=== PATIENT | female | born 1960 | race Caucasian/White ===

== ENCOUNTER 2019-05-29 11:16 | Outpatient (CLI) | payer OTHER, MEDICARE, SELFPAY ==
--- NOTE | ~2019-05-29 | CT_ITS ---
EXAMINATION: CT chest wo con EXAM DATE: 05/29/2019 11:41 INDICATION: Solitary pulmonary nodule. Follow-up. TECHNIQUE: Spiral CT of the chest without contrast. Axial, coronal and sagittal images were reviewe d. Coronal maximum intensity pixel images of chest reviewed. The dose-length product (DLP) for this examination was 86.01 mGy-cm. The exposure was tailored according to patient size (auto mA exposure control), and iterative reconstruction (ASIR) was used as additional dose reduction technique. Juan C rison is made to prior examination from 04/10/2018. FINDINGS: Previously seen 4 mm right middle lobe nodule is stable, a noncalcified granuloma. There i s also small amount of biapical infectious residua. Mild emphysema and hyperinflation. There are no pleural or pericardial effusions. Tracheobronchial tree is patent. There is no mediastinal, hilar or axillary lymphadenopathy. There is no pneumothorax. Heart normal in size. No evidence of co ronary arterial calcification. Upper abdomen is unremarkable. There is mild thoracic spondylosis w ithout osteoblastic or osteolytic lesions identified. IMPRESSION: 1. Post infectious residua. 2. Mild emphysema. Reviewed, dictated and finalized at location A. OLOGY EPILEPSY PHYSICIAN
== END 2019-05-29 11:17 | disposition home or self-care (01) ==
PROVIDERS: PCP Family Medicine; Visit Provider Family Medicine
DX: R91.1 Solitary pulmonary nodule (principal); J43.9 Emphysema, unspecified; R91.8 Other nonspecific abnormal finding of lung field
CPT/HCPCS: 71250

== ENCOUNTER 2019-08-01 07:59 | Outpatient (CLI) | payer OTHER, MEDICARE, SELFPAY ==
--- NOTE | 2019-08-01 14:28 | WPDPFTINT ---
PFT Interpretation PFT Interpretation: DOS: 08/01/2019 REQUESTING: Johnson Nieto PA-C REASON FOR TESTING: shortness of breath, history of tobacco PULMONARY FUNCTION TESTS Results are reproducible. Spirometry: FEV1 is 120%, 3.07 L. FVC 113%. These values are normal. FEV1% is normal. No change with bronchodilator. Lung volumes: TLC 118%, high end of normal. RV 120%, high end of normal. RV/TLC slightly greater than predicted, suggestive of mild air trapping. Arrway resistance mildly elevated 137%. Diffusion: DLCO is 68%, mildly reduced. Flow volume loop: Normal. IMPRESSION: Mild obstructive process inferred by mild air trapping, mild increase in airway resistance and mild decrease in diffusion. Lack of response to bronchodilator should not preclude use if clinically indicated. Sierra Mccurdy MD
== END 2019-08-01 08:00 | disposition home or self-care (01) ==
PROVIDERS: PCP Family Medicine; Visit Provider Physician Assistant
DX: R06.02 Shortness of breath (principal); Z87.891 Personal history of nicotine dependence; P28.89 Other specified respiratory conditions of newborn
CPT/HCPCS: 94060; 94726; 94729

== ENCOUNTER 2019-10-31 14:38 | Outpatient (CLI) | payer OTHER, MEDICARE, SELFPAY ==
--- NOTE | ~2019-10-31 | MM_ITS ---
EXAMINATION: MM screening reed BI w schuyler HISTORY: Screening TECHNIQUE: Craniocaudal and mediolateral oblique 3-D tomosynthesis images were obtained and synthetic 2-D images were generated. CAD analysis was submitted and interpreted. COMPARISON: No prior mammogram is available for comparison at this institution. BREAST PARENCHYMAL COMPOSITION: Comparison to multiple prior studies sequentially, with oldest review ed study dated 02/09/2011. FINDINGS: There is no evidence of suspicious mass, calcification, or architectural distortion to sugg est malignancy in either breast. There has been no suspicious interval change. IMPRESSION: 1. No mammographic evidence of malignancy. 2. Recommend routine screening mammography in one year. BI-RADS Category 1: Negative Reviewed, dictated and finalized at location A.
== END 2019-10-31 14:39 | disposition home or self-care (01) ==
LOC: ANHIMG 14:43
PROVIDERS: PCP Family Medicine; Visit Provider Family Medicine
DX: Z12.31 Encounter for screening mammogram for malignant neoplasm of breast (principal)
CPT/HCPCS: 77063; 77067

== ENCOUNTER 2020-01-08 15:14 | Outpatient (CLI) | payer OTHER, MEDICARE, SELFPAY ==
[2020-01-08 16:15] LABS: Troponin I 0.058 ng/mL (0.000-0.034)
== END 2020-01-08 15:15 | disposition home or self-care (01) ==
PROVIDERS: PCP Family Medicine; Visit Provider Family Medicine
DX: R07.9 Chest pain, unspecified (principal)
CPT/HCPCS: 36415; 84484

== ENCOUNTER 2020-01-08 17:45 | Observation (INO) | payer OTHER, MEDICARE, SELFPAY ==
--- NOTE | ~2020-01-08 | CT_ITS ---
EXAMINATION: CTA chest PE protocol DATE: 01/09/2020 11:31 INDICATION: Chest pain. TECHNIQUE: Computed tomography angiography (CTA) of the chest was performed with 100 mL Omnipaque-350 intravenous contrast timed to evaluate the pulmonary arteries. Coronal maximum intensity projection 3D-reconstructions were created by the technologist. Automated exposure control and iterative reconst ruction technique were employed. The dose-length product was 396.22 mGy-cm. COMPARISON: Chest CT 05/29/2019 FINDINGS: There is mild scarring at the lung apices. There is mild atelectasis bilaterally. Again see n is a 5 mm nodule at minor fissure, likely benign. A calcified right lung nodule is consistent with old granulomatous disease. No pleural effusion. There are nodules in the thyroid measuring up to 6 mm , likely not clinically significant. There are changes of right hemithyroidectomy. The heart size is normal. No pericardial effusion. There is no pulmonary embolus. There is mild thoracic spondylosis. IMPRESSION: 1. No pulmonary embolus. Reviewed, dictated and finalized at location A. IMPRESSION: 1. No pulmonary embolus.
--- NOTE | ~2020-01-08 | NM_ITS ---
EXAMINATION: NM higinio stress w perfusion DATE: 01/10/2020 10:03 INDICATION: Chest pain TECHNIQUE: Rest images were obtained following intravenous administration of 12.5 mCi Tc99m tetrofosm in (Myoview). The patient was infused intravenously with Lexiscan (Regadenoson). Then, 33.5 mCi Tc99m tetrofosmin (Myoview) was administered intravenously, and stress images were obtained. Data was vasile nstructed into short axis and horizontal and vertical long axis SPECT images. Gated SPECT images were also obtained. COMPARISON: None. FINDINGS: Small region of decreased apparent perfusion at the apical inferior segment which appears t o severe on the stress than on the rest images which would favor a traumatic attenuation artifact ove r mild infarct. No other lesions suspicious for infarct and no reversible ischemia. There is normal left ventricular chamber size, wall motion and ejection fraction. Left ventricular ejection fraction measures >70%. IMPRESSION: 1. Small mild perfusion defect at the apical inferior segment greater on the rest than the stress milena ges more likely diaphragmatic attenuation artifact and infarct. Otherwise normal myocardial perfusion at rest and during stress. 2. Left ventricular ejection fraction measuring >70%. Reviewed, dictated and finalized at location B. IMPRESSION: 1. Small mild perfusion defect at the apical inferior segment greater on the re st than the stress images more likely diaphragmatic attenuation artifact and in farct. Otherwise normal myocardial perfusion at rest and during stress. 2. Left ventricular ejection fraction measuring >70%.
[2020-01-08 18:59] LABS: Troponin I 0.056 ng/mL (0.000-0.034)
[2020-01-08 19:03] VITALS: BP 135/78; PULSE 90; RESP 14; TEMP 36.4; O2SAT 99
--- NOTE | 2020-01-08 19:24 | ADMGEN ---
This patient, Mary Weinberg, was admitted to IMU Room 200-01 at 1732. Patient/family oriented to hospital policies and general routines including ID bracelet, bed and alarms, visiting hours, pain management, procedures, bathroom and other care routines, personal items, smoking policy, room service/diet, and visiting hours. Valuables list has been completed. Information on how to activate the Rapid Response Team has been discussed. Patient/Family are encouraged to report perceived risks to care and to ask questions if they do not understand what they are told or what they should do.
[2020-01-08 20:00] VITALS: PULSE 90
--- NOTE | 2020-01-08 20:37 | PM.IMHP ---
H&P: HPI History of Present Illness Date/Time: 01/08/20 20:37 Chief complaint: Chest Pain Narrative: Mary Weinberg is a 59 year old female Who has a history of COPD and anxiety. The patient stated that she had chest pain 2 times a last month. The patient tells me that she walks 3 miles 3 times a week and does not have any chest pain. However today she was ironing her clothes and she had an episode for about a minute where she had some pain under her left breast and went to her midsternal area she said it was sharp and she that she was going to she did not get short of breath and it did not radiate down her left arm or upper neck. But this is the 2nd time in a month at this occurred. She said that she did have some tenderness to the her breast bone when this was occurring. She does not have any tenderness now on the pain is totally gone. She did not take anything to relieve the discomfort. The patient does have a history of acid reflux as well. The patient had an EKG performed and it looks like there is a little bit of elevation in the AVF but it is just in the that [address] they have [address] elevation. Cardiology had been consulted did prior to the patient coming from the office she has a direct admit from Dr. Lu office. The patient no longer has any discomfort. No further testing was performed except for troponin was 0.058 and then 0.056. Date of service is 01/08/2020. Review of Systems Review of Systems: All systems reviewed & are unremarkable except as noted in HPI and below Constitutional: Constitutional: Reports as per HPI and Reports no additional constitutional complaints Eyes: Eyes: Reports as per HPI and Reports no additional eye complaints ENT: Reports system reviewed and no additional complaints, except as documented and Reports Normal hearing present Cardiovascular: Cardiovascular: Reports no additional cardiovascular complaints Respiratory: Respiratory: Reports no additional respiratory complaints and Reports no additional respiratory complaints Gastrointestinal: Gastrointestinal: Reports as per HPI and Reports no additional gastrointestinal complaints Musculoskeletal: Musculoskeletal: Reports no additional musculoskeletal complaints Integumentary/Breasts: Skin/Breast: Reports system reviewed and no additional complaints, except as docu and Reports as per HPI Neurologic: Reports system reviewed and no additional complaints, except as documented, Reports as per HPI and Reports Normal hearing present Psychiatric: Psychiatric: Reports no additional psychiatric complaints and Reports as per HPI Endocrine: Endocrine: Reports no additional endocrine complaints Hematologic/Lymphatic: Hematologic/Lymphatic: Reports no additional hematologic/lymphatic complaints Allergic/Immunologic: Allergic/Immunologic: Reports no additional allergic/immunologic complaints [facility] Past Medical History Medical History (Updated 01/08/20 @ 20:53 by Kenyatta Lemon NP) Anxiety Blepharitis Chronic GERD COPD (chronic obstructive pulmonary disease) Epilepsy Hypothyroidism Osteopenia Postmenopausal HRT (hormone replacement therapy) Pulmonary nodule Surgical History Surgical History (Updated 01/08/20 @ 20:47 by Kenyatta Lemon NP) History of craniotomy L temporal History of elective section times one History of exploratory laparotomy x 4 History of hysterectomy History of partial thyroidectomy Family History Family History (Updated 01/08/20 @ 20:50 by Kenyatta Lemon NP) Father Recurrent strokes Mother Acute eosinophilic leukemia Thyroid disease Anxiety Social History Social History (Updated 01/08/20 @ 20:51 by Kenyatta Lemon NP) Social History: the patient lives at home with her . He is a durable power contract attorney for healthcare. She has 3 children. She has 1 daughter and is at a twin boys. 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 Patient u
--- NOTE | 2020-01-08 20:47 | ECG_ITS ---
SINUS RHYTHM NORMAL ECG Electronically Signed On 01-10-2020 10:55:57 CDT by Michelet CHILDERS
[2020-01-08] MEDS: lamoTRIgine 100 MG TABLET 200 MG PO (22:10)
[2020-01-08 22:11] LABS: Lactic Acid Reflex 1.8 mmol/L (0.7-2.1)
[2020-01-08 22:13] LABS: Anion Gap 7 mmol/L (8-16); Blood Urea Nitrogen 20 mg/dL (7-17); Carbon Dioxide 28 mmol/L (22-30); Chloride 107 mmol/L (98-107); Estimated Glomerular Filt Rate > 60; Glucose 130 mg/dL (65-105); Magnesium 2.4 mg/dL (1.6-2.3); Potassium 3.8 mmol/L (3.4-5.0); Sodium 142 mmol/L (137-145)
[2020-01-08] MEDS: cycloSPORINE 0.4 ML OPHTH SOLUTION 1 DROP EACH EYE (22:13)
[2020-01-08] MEDS: clonazePAM (*CRX) 0.25 MG TABLET PO (22:25)
[2020-01-08 22:33] LABS: Troponin I 0.056 ng/mL (0.000-0.034)
--- NOTE | 2020-01-08 23:25 | PC.NURSE ---
Orders to consult Dr. Mcrae per Kenyatta Lemon NP, orders for chest pain and elevated troponins. has not yet been contacted. Dr. Mcrae is to be contacted in the morning for the consult as requested by DARÍO You.
[2020-01-08 23:37] VITALS: BP 125/70; PULSE 91; RESP 18; TEMP 36.1; O2SAT 96
[2020-01-09] VITALS (13 sets, daily range): BP systolic 118–142; BP diastolic 58–92; PULSE 82–106; RESP 14–20; TEMP 36.3–36.6; O2SAT 97–99
--- NOTE | 2020-01-09 | ECHO_ITS ---
Patient Info Name: Mary Weinberg Age: 59 years : 1960 Gender: Female Ht: 68 in Wt: 197 lbs BSA: 2.09 m2 HR: 81 bpm BP: 142 / 92 mmHg Heart Rhythm: Sinus Rhythm Technical Quality: Good Exam Date: 01/09/2020 7:41 AM Exam Location: [facility] Pulmonary Patient Status: Outpatient Admit Date: 01/08/2020 Staff Ordering Physician: Kenyatta Lemon NP Therapeutic Support Staff: Kenyon Trinidad RDCS, RT Attending Provider: Estephanie Guevara PA-C Referring Physician: Ion CHAVEZ; Exam Type: CA echo doppler color flow Study Info Indications R07.9 - Chest pain, unspecified Complete two-dimensional, color flow and Doppler transthoracic echocardiogram is performed. Strain analysis performed. Summary 1. Complete two-dimensional, color flow and Doppler transthoracic echocardiogram is performed. 2. Global longitudinal strain is Borderline at -17 %. 3. The left ventricular diastolic function is grade I diastolic dysfunction. 4. There is no increased left ventricular wall thickness. 5. Left ventricular chamber dimension is normal. 6. Left ventricular systolic function is normal, estimated at 60-65%. 7. Left atrial chamber dimension is mildly enlarged. 8. There is mild aortic valve sclerosis. 9. There is mild aortic valve stenosis with a peak velocity of 169 cm/s, mean gradient of 6 mmHg, and aortic valve area of 2.1 cm2. 10. There is mild aortic valve regurgitation. 11. There is mild mitral valve regurgitation. 12. There is mild tricuspid valve regurgitation. 13. There is small pericardial effusion. 14. Strain analysis performed. Left Ventricle Left ventricular chamber dimension is normal. Left ventricular systolic function is normal, estimated at 60-65%. There is no increased left ventricular wall thickness. The left ventricular diastolic function is grade I diastolic dysfunction. E/e' 8.8 is abnormal. Global longitudinal strain is Borderline at -17 %. Right Ventricle Right ventricular chamber dimension is normal. Right ventricular systolic function is normal. Left Atria Left atrial chamber dimension is mildly enlarged. Right Atria Right atrial chamber dimension is normal. Atrial Septum Intact interatrial septum visualized by color flow imaging. Aortic Valve The aortic valve is probable trileaflet. There is mild aortic valve sclerosis. There is mild aortic valve stenosis with a peak velocity of 169 cm/s, mean gradient of 6 mmHg, and aortic valve area of 2.1 cm2. There is mild aortic valve regurgitation. Pulmonic Valve The pulmonic valve is normal. There is no pulmonic valve stenosis. There is trace pulmonic regurgitation. Mitral Valve The mitral valve has normal leaflets. There is no mitral valve stenosis. There is mild mitral valve regurgitation. Tricuspid Valve The tricuspid valve leaflets are normal. There is no significant tricuspid valve stenosis. There is mild tricuspid valve regurgitation. Pericardium/Pleural The pericardium appears normal. There is small pericardial effusion. Inferior Vena Cava Normal inferior vena cava with >50% collapse upon inspiration consistent with normal right atrial pressure, 5 mmHg. Aorta The aortic root size at the sinus of Valsalva is normal. Left Ventricular Outflow Tract Name Value Normal L
[2020-01-09 04:57] LABS: Basophils Absolute Auto 0.1 K/mm3 (0.0-0.1); Basophils Percent Auto 0.7 % (0.2-1.2); Eosinophils Absolute Auto 0.2 K/mm3 (0-0.3); Eosinophils Percent Auto 2.6 % (0-4.4); Hematocrit 37.7 % (37.0-47.0); Hemoglobin 12.6 g/dL (12.0-15.0); Immature Granulocyte Absolute 0.03 K/mm3 (0.00-0.031); Immature Granulocyte Percent A 0.4 % (0-0.5); Lymphocytes Absolute Auto 2.24 K/mm3 (0.9-3.2); Lymphocytes Percent Auto 27.4 % (18.3-44.2); Mean Corpuscular HGB Conc 33.4 g/dl (32-36); Mean Corpuscular Volume 92.9 fl (80-100); Mean Platelet Volume 9.8 fl (7.4-10.4); Monocytes Absolute Auto 1.1 K/mm3 (0.1-0.6); Monocytes Percent Auto 13.4 % (2.6-8.5); Neutrophils Absolute Auto 4.6 K/mm3 (1.3-6.7); Neutrophils Percent Auto 55.5 % (45.5-73.1); Platelet Count Result 266 k/mm3 (150-375); Red Blood Count 4.06 M/mm3 (4.2-5.4); Red Cell Distribution Width 12.7 % (11.5-14.5); White Blood Count 8.2 K/mm3 (4.5-10.0)
[2020-01-09 05:15] LABS: Anion Gap 7 mmol/L (8-16); Blood Urea Nitrogen 19 mg/dL (7-17); Carbon Dioxide 27 mmol/L (22-30); Chloride 109 mmol/L (98-107); Estimated Glomerular Filt Rate > 60; Glucose 95 mg/dL (65-105); Magnesium 2.3 mg/dL (1.6-2.3); Sodium 143 mmol/L (137-145)
[2020-01-09 05:22] LABS: Add Urine Microscopic? YES; Amorphous Sediment Urine Few; Appearance Urine Cloudy (Clear); Bilirubin Urine Negative (Negative); Blood Urine Negative (Negative); Color Urine Yellow (Yellow); Glucose Urine UA Negative (Negative); Ketones Urine Negative (Negative); Leukocyte Esterase Ur Negative LEU/UL (Negative); Mucus Urine Rare /lpf; Nitrate Urine Negative (Negative); Protein Urine Negative (Negative); Specific Grav Ur 1.016 (1.001-1.035); Squamous Epithelial Cell Urine Rare /hpf (Few); Urobilinogen Urine Negative mg/dL (<2.0)
[2020-01-09 05:34] LABS: Atypical Lymphocytes Present; Platelet Estimate Adequate (Adequate)
[2020-01-09] MEDS: LEVOTHYROXINE SODIUM 25 MCG TABLET PO (06:13)
[2020-01-09] MEDS: PANTOPRAZOLE 40 MG TABLET PO (09:17)
[2020-01-09] MEDS: lamoTRIgine 100 MG TABLET 200 MG PO ×2 (09:17→20:53)
[2020-01-09] MEDS: cycloSPORINE 0.4 ML OPHTH SOLUTION 1 DROP EACH EYE ×2 (09:17→20:51)
[2020-01-09] MEDS: RALOXIFENE HCL (*CHEMO) 60 MG TABLET PO (09:18)
[2020-01-09] MEDS: MULTIVITAMINS /C LUTEIN (CENTRUM SILVER) TABLET *BKC 1 TAB PO (09:18)
[2020-01-09] MEDS: CHOLECALCIFEROL 1,000 UNITS TABLET 2000 UNITS PO (09:18)
[2020-01-09] MEDS: clonazePAM (*CRX) 0.25 MG TABLET PO ×2 (09:21→21:08)
--- NOTE | 2020-01-09 10:51 | PM.CNCAR ---
Assessment and Plan Assessment and plan (1) Chest pain: Code(s): R07.9 - Chest pain, unspecified Status: Acute Assessment and Plan: this is not related to acute coronary syndrome. Possible pericarditis or even post residual myocarditis from significant infection per patient last year. Will check a CT scan of her chest to rule out for PE albeit not likely . Will Indocin 25 mg p.o. x1 (2) Elevated troponin: Code(s): R77.8 - Other specified abnormalities of plasma proteins Status: Acute Assessment and Plan: check CT chest (3) Pericardial effusion: Code(s): I31.3 - Pericardial effusion (noninflammatory) Status: Acute Assessment and Plan: possibly post infectious versus thyroid disease versus other. Will check a free T4 level. CT chest was ordered. Will check a CRP and ESR. Will need a follow-up echo in office (4) Hypothyroidism: Code(s): E03.9 - Hypothyroidism, unspecified Status: Acute Assessment and Plan: check free T4 level (5) Chronic GERD: Code(s): K21.9 - Gastro-esophageal reflux disease without esophagitis Status: Chronic Assessment and Plan: continue PPI History of Present Illness History of Present Illness Consult date/time: 01/09/20 10:51 Requesting physician: Kenyatta Lemon NP Consult reason: chest pain Reason For Visit: Chest Pain Narrative: date of service 01/09/2020 Reason consultation chest pain, elevated troponin History: Patient is a 59-year-old female who has known known cardiac history. She does have history of COPD and anxiety. She also has hypothyroidism. Patient states that through the years she has had episodes of chest pain. She thinks she has had 3 or 4 episodes over several year time frame of chest pain which is located underneath her left breast. She had an episode about a month ago and then another episode 2 days ago. This episode most recently though was more severe and sharp in nature. It radiated up into her mid chest area. It did not going to her arm back neck or jaw. It was not associated with other symptoms. It was nonexertional. It lasted for about a minute. She bent over and slowly breathe and her symptoms gradually faded away. She has no exertional chest pain. Symptoms were not pleuritic. She denies any syncope, presyncope, paroxysmal nocturnal dyspnea, orthopnea, edema or palpitations. EKG is unremarkable. Troponins were drawn which were minimally elevated but without significant rise or fall. She formally could walk up to 3 miles daily 3 times per week without any problems. She does have occasional shortness of breath which she relates to her underlying COPD. Review of Systems Review of Systems: All systems reviewed & are unremarkable except as noted in HPI and below Constitutional: Constitutional: Denies body ache(s) Eyes: Eyes: Denies blurry vision ENT: Reports Normal hearing present Cardiovascular: Cardiovascular: Reports chest pain Respiratory: Respiratory: Denies cough Gastrointestinal: Gastrointestinal: Denies abdominal pain Genitourinary: Genitourinary: Reports no additional female genitourinary complaints Musculoskeletal: Musculoskeletal: Denies back pain Integumentary/Breasts: Skin/Breast: Denies swelling Neurologic: Reports Normal hearing present Psychiatric: Psychiatric: Reports anxiety Endocrine: Endocrine: Denies fatigue Hematologic/Lymphatic: Hematologic/Lymphatic: Denies easy bleeding Allergic/Immunologic: Allergic/Immunologic: Denies GI upset with certain foods PMFSH Past Medical History Medical History Anxiety Blepharitis Chronic GERD COPD (chronic obstructive pulmonary disease) Epilepsy Hypothyroidism Osteopenia Postmenopausal HRT (hormone replacement therapy) Pulmonary nodule Surgical History Surgical History (Reviewed 01/09/20 @ 10:55 by Terrence Woods
[2020-01-09 10:52] LABS: Cholesterol 245 mg/dL (0-200); HDL Direct 67 mg/dL; Triglycerides 151 mg/dL (<150)
[2020-01-09 11:02] LABS: LDL Cholesterol Direct 123 mg/dL
--- NOTE | 2020-01-09 11:23 | PHAR ---
HOME MED VERIFIED = ANORO ELLIPTA 62.5/25 MCG. NO RX LABEL
[2020-01-09 12:42] LABS: CRP 1.8 mg/dL (<1.0)
[2020-01-09 12:56] LABS: T4 Thyroxine 7.43 ug/dL (5.53-11.0)
[2020-01-09 13:05] LABS: Erythrocyte Sedimentation Rate 16 mm/hr (0-20)
[2020-01-09] MEDS: INDOMETHACIN 25 MG CAPSULE PO (13:06)
--- NOTE | 2020-01-09 15:26 | PM.IMPN ---
Progress Note: A&P Assessment and Plan (1) Elevated troponin: Code(s): R77.8 - Other specified abnormalities of plasma proteins Status: Acute Assessment and Plan: Patient came in with sharp stabbing left-sided chest pain with radiation to her sternal chest which lasted about 1 minutes while she was ironing 1 day prior to arrival. The patient came in with her troponins elevated and then remained flat, 0.058, 0.056, 0.056. Cardiology was consulted for further evaluation this is related to acute coronary syndrome and could be related to pericarditis or myocarditis from a significant infection over the last 1 year. Her echocardiogram showed normal systolic function with EF of 60-65%, grade 1 diastolic dysfunction, and mild pericardial effusion. Due to her pain she would also had a CTA of her chest which showed no PE or cause of chest pain. Patient's cholesterol level showed elevated total cholesterol at 245, slightly elevated triglycerides at 151, LDL was 123 which is normal if she does not have any plaque buildup and HDL is good at 67. Talked with Cardiology who would like for her to have a Lexiscan stress test in the morning and be observed overnight. The patient understands and agrees with the plan all questions answered. (2) Chest pain: Code(s): R07.9 - Chest pain, unspecified Status: Acute Assessment and Plan: Please see above under elevated troponins. (3) COPD (chronic obstructive pulmonary disease): Code(s): J44.9 - Chronic obstructive pulmonary disease, unspecified Status: Acute Assessment and Plan: Continue with her home inhalers. (4) Anxiety: Code(s): F41.9 - Anxiety disorder, unspecified Status: Chronic Assessment and Plan: Continue with her clonazepam. (5) Hypothyroidism: Code(s): E03.9 - Hypothyroidism, unspecified Status: Acute Assessment and Plan: TSH and T4 were both normal. Will continue with her levothyroxine from home. (6) Epilepsy: Code(s): G40.909 - Epilepsy, unspecified, not intractable, without status epilepticus Status: Acute Assessment and Plan: Patient had many seizures in the past and had a craniotomy. Will continue her Lamictal. (7) Pulmonary nodule: Code(s): R91.1 - Solitary pulmonary nodule Status: Acute Assessment and Plan: CT scan of her chest showed 5 mm nodule at minor fissure, likely benign. A calcified right lung nodule is consistent with old granulomatous disease. To be followed by her information security consultant. (8) Thyroid nodule: Code(s): E04.1 - Nontoxic single thyroid nodule Status: Acute Assessment and Plan: CT showed that there are nodules in the thyroid measuring up to 6 mm, likely not clinically significant. There are changes of right hemithyroidectomy. She will need to follow-up with her primary care provider for further evaluation Time Spent With Patient Time with patient: 25 - 35 minutes Subjective Date/time seen: 01/09/20 15:26 Interval history: Date of service 01/09/2020: Patient is feeling better today. She did have 1 episode of chest discomfort around midnight last night which lasted only a few seconds. She does not states this is the same chest pain she had prior to coming in. She denies any shortness of breath, fevers, chills, nausea, vomiting, abdominal pain, diarrhea, leg swelling, calf pain or any other symptoms at this time. Review of Systems Review of Systems: All systems reviewed & are unremarkable except as noted in HPI and below Exam Narrat
[2020-01-10] VITALS (9 sets, daily range): BP systolic 118–123; BP diastolic 69–70; PULSE 76–99; RESP 12–23; TEMP 35.9–36.3; O2SAT 95–98
[2020-01-10 05:18] LABS: Anion Gap 9 mmol/L (8-16); Blood Urea Nitrogen 16 mg/dL (7-17); Calcium 9.3 mg/dL (8.4-10.2); Carbon Dioxide 27 mmol/L (22-30); Chloride 105 mmol/L (98-107); Estimated Glomerular Filt Rate > 60; Glucose 97 mg/dL (65-105); Magnesium 2.1 mg/dL (1.6-2.3); Potassium 4.1 mmol/L (3.4-5.0); Sodium 141 mmol/L (137-145)
[2020-01-10] MEDS: LEVOTHYROXINE SODIUM 25 MCG TABLET PO (06:36)
--- NOTE | 2020-01-10 08:00 | PC.NURSE ---
Pt to xray for Lexiscan
--- NOTE | 2020-01-10 08:30 | EST_ITS ---
Patient Info Name: Mary Weinberg Age: 59 years : 1960 Gender: Female Ht: 67 in Wt: 190 lbs BSA: 2.04 m2 Exam Date: 01/10/2020 8:30 AM Exam Location: [facility] Stress Patient Status: Inpatient Admit Date: 01/08/2020 Staff Ordering Physician: Tucker Araya APRN Attending Provider: TUCKER CHOU Exercise Technologist: Rosa Elena Mcgee RDCS Exam Type: CA stress higinio w NM Study Info Indications R07.9 - Chest pain, unspecified A regadenoson stress test was performed. Summary 1. No abnormal ST-T wave changes with lexiscan. 2. Please correlate with nuclear medicine images, reported separately. Protocol: Lexiscan Stress ECG Details Stage: REST Duration (min): 6 min : 24 sec HR (bpm): 83 SBP (mmHg): 128 DBP (mmHg): 78 Stage: REST Duration (min): 10 min : 13 sec HR (bpm): 89 SBP (mmHg): 128 DBP (mmHg): 78 Stage: STAGE 1 Duration (min): 1 min : 0 sec HR (bpm): 117 SBP (mmHg): 117 DBP (mmHg): 79 Stage: RECOVERY Duration (min): 1 min : 0 sec HR (bpm): 122 SBP (mmHg): 124 DBP (mmHg): 76 Stage: RECOVERY Duration (min): 2 min : 0 sec HR (bpm): 116 SBP (mmHg): 124 DBP (mmHg): 76 Stage: RECOVERY Duration (min): 3 min : 0 sec HR (bpm): 111 SBP (mmHg): 126 DBP (mmHg): 64 Stage: RECOVERY Duration (min): 3 min : 9 sec HR (bpm): 110 SBP (mmHg): 126 DBP (mmHg): 64 Rest HR: 89 bpm Peak HR: 124 bpm Rest Sys BP: 128 mmHg Peak Sys BP: 126 mmHg Max Pred HR: 161 bpm % Max Pred HR: 77 % Target HR: 137 bpm Max RPP: 15,624 bpm*mmHg Target HR Summary: Hemodynamic response to exercise was normal BP Response: Normal blood pressure response Termination Reason: Completed protocol Cardiac Symptoms: None Total Time: 1 min : 0 sec Rest Plasencia BP: 78 mmHg Peak Plasencia BP: 64 mmHg Total Dose: 0.4 mg Resting ECG Normal sinus rhythm - normal ECG. Stress ECG No abnormal ST/T wave changes with exercise. Arrhythmias None. Report Signatures
--- NOTE | 2020-01-10 09:57 | PC.NURSE ---
Pt returned to floor from [facility]
[2020-01-10] MEDS: clonazePAM (*CRX) 0.25 MG TABLET PO (10:00)
[2020-01-10] MEDS: lamoTRIgine 100 MG TABLET 200 MG PO (10:00)
[2020-01-10] MEDS: RALOXIFENE HCL (*CHEMO) 60 MG TABLET PO (10:00)
[2020-01-10] MEDS: cycloSPORINE 0.4 ML OPHTH SOLUTION 1 DROP EACH EYE (10:01)
[2020-01-10] MEDS: MULTIVITAMINS /C LUTEIN (CENTRUM SILVER) TABLET *BKC 1 TAB PO (10:01)
[2020-01-10] MEDS: PANTOPRAZOLE 40 MG TABLET PO (10:01)
[2020-01-10] MEDS: CHOLECALCIFEROL 1,000 UNITS TABLET 2000 UNITS PO (10:01)
--- NOTE | 2020-01-10 10:17 | PM.PNCARD ---
Progress Note: A&P Assessment and Plan (1) Chest pain: Qualifiers: Chest pain type: other chest pain Qualified Code(s): R07.89 - Other chest pain Code(s): R07.9 - Chest pain, unspecified Status: Acute Assessment and Plan: This is not related to acute coronary syndrome. Possible pericarditis or even post residual myocarditis from significant infection per patient last year. CTA was negative for pulmonary embolus. Lexiscan pending (2) Elevated troponin: Code(s): R77.8 - Other specified abnormalities of plasma proteins Status: Acute Assessment and Plan: CT as above. Lexiscan pending (3) Pericardial effusion: Code(s): I31.3 - Pericardial effusion (noninflammatory) Status: Acute Assessment and Plan: Possibly post infectious versus thyroid disease versus other. Free T4 level within normal limits. CT a as above. CRP 1.8. ESR 16 Echocardiogram 01/09/2020:Global longitudinal strain is Borderline at -17 %. The left ventricular diastolic function is grade I diastolic dysfunction. There is no increased left ventricular wall thickness. Left ventricular chamber dimension is normal. Left ventricular systolic function is normal, estimated at 60-65%. Left atrial chamber dimension is mildly enlarged. There is mild aortic valve sclerosis. There is mild aortic valve stenosis with a peak velocity of 169 cm/s, mean gradient of 6 mmHg, and aortic valve area of 2.1 cm2. There is mild aortic valve regurgitation. There is mild mitral valve regurgitation. There is mild tricuspid valve regurgitation. There is small pericardial effusion. Strain analysis performed . (4) Hypothyroidism: Code(s): E03.9 - Hypothyroidism, unspecified Status: Acute Assessment and Plan: T4 level within normal limits (5) Chronic GERD: Code(s): K21.9 - Gastro-esophageal reflux disease without esophagitis Status: Chronic Assessment and Plan: continue PPI Additional Plan Further recommendations pending the outcome of the Lexiscan. Plan discussed with Dr. Mon 0945 01/10/2020 Subjective Date/time seen: 01/10/20 08:47 Seen in stress lab. Review of Systems Review of Systems: All systems reviewed & are unremarkable except as noted in HPI and below Constitutional: Constitutional: Denies body ache(s) and Denies fatigue Eyes: Eyes: Denies blurry vision ENT: Reports Normal hearing present Cardiovascular: Cardiovascular: Reports chest pain Respiratory: Respiratory: Denies cough Gastrointestinal: Gastrointestinal: Denies abdominal pain Genitourinary: Genitourinary: Reports no additional female genitourinary complaints Musculoskeletal: Musculoskeletal: Denies back pain Integumentary/Breasts: Skin/Breast: Denies swelling Neurologic: Reports Normal hearing present Psychiatric: Psychiatric: Reports anxiety Endocrine: Endocrine: Denies fatigue Hematologic/Lymphatic: Hematologic/Lymphatic: Denies easy bleeding Allergic/Immunologic: Allergic/Immunologic: Denies GI upset with certain foods Exam Narrative: Exam Narrative: Seen in stress lab. Laying comfortably on stretcher Const: General: cooperative Orientation/consciousness: patient oriented x3 Limitations: no limitations HENMT: Head: normal to inspection General nose exam: Normal nares present Mouth: Yes moist mucous membranes Eyes: Sclera: sclerae normal Neck: Neck: supple and No JVD Chest: Chest palpation & inspection: normal inspection of the chest Resp: Effort & Inspection: normal respiratory effort and able to speak in complete sentences Auscultation: clear to auscultation bilaterally Cardio: Jugular venous distension: no JVD Rhythm: regular rhythm Heart sounds: S1 normal heart sound present and S2 normal heart sound present
--- NOTE | 2020-01-10 13:11 | PM.DS ---
DS: Admitting Diagnosis Admitting Diagnosis Admitting Diagnosis: Chest Pain DS: Discharge Diagnosis Discharge Diagnosis (1) Elevated troponin: Code(s): R77.8 - Other specified abnormalities of plasma proteins Status: Acute Assessment and Plan: Patient came in with sharp stabbing left-sided chest pain with radiation to her sternal chest which lasted about 1 minutes while she was ironing 1 day prior to arrival. The patient came in with her troponins elevated and then remained flat, 0.058, 0.056, 0.056. Cardiology was consulted for further evaluation this is related to acute coronary syndrome and could be related to pericarditis or myocarditis from a significant infection over the last 1 year. Her echocardiogram showed normal systolic function with EF of 60-65%, grade 1 diastolic dysfunction, and mild pericardial effusion. Due to her pain she would also had a CTA of her chest which showed no PE or cause of chest pain. Patient's cholesterol level showed elevated total cholesterol at 245, slightly elevated triglycerides at 151, LDL was 123 which is normal if she does not have any plaque buildup and HDL is good at 67. She had a Lexiscan stress test showed Small mild perfusion defect at the apical inferior segment greater on the rest than the stress images more likely diaphragmatic attenuation artifact and infarct. Otherwise normal myocardial perfusion at rest and during stress. Left ventricular ejection fraction measuring >70%. Cardiology feels comfortable with discharge at this time. They will treat her for Pericardial inflammation with Ibuprofen taper. She does not need further cardiology follow up and can Follow up with Dr. Ibanez within 1 week for further evaluation. The patient understands and agrees with the plan all questions answered. (2) Pericardial effusion: Code(s): I31.3 - Pericardial effusion (noninflammatory) Status: Acute Assessment and Plan: Possibly post infectious vs thyroid disease. Has normal TSH and T4. CRP slightly elevated with a normal ESR. Cardiology feels comfortable at this time with discharge and follow up with PCP. (3) Chest pain: Qualifiers: Chest pain type: other chest pain Qualified Code(s): R07.89 - Other chest pain Code(s): R07.9 - Chest pain, unspecified Status: Acute Assessment and Plan: Please see above under elevated troponins. (4) COPD (chronic obstructive pulmonary disease): Code(s): J44.9 - Chronic obstructive pulmonary disease, unspecified Status: Acute Assessment and Plan: Continue with her home inhalers. (5) Anxiety: Code(s): F41.9 - Anxiety disorder, unspecified Status: Chronic Assessment and Plan: Continue with her clonazepam. (6) Hypothyroidism: Code(s): E03.9 - Hypothyroidism, unspecified Status: Acute Assessment and Plan: TSH and T4 were both normal. Will continue with her levothyroxine from home. (7) Epilepsy: Code(s): G40.909 - Epilepsy, unspecified, not intractable, without status epilepticus Status: Acute Assessment and Plan: Patient had many seizures in the past and had a craniotomy. Will continue her Lamictal. (8) Pulmonary nodule: Code(s): R91.1 - Solitary pulmonary nodule Status: Acute Assessment and Plan: CT scan of her chest showed 5 mm nodule at minor fissure, likely benign. A calcified right lung nodule is consistent with old granulomatous disease. To be followed by her hotel yardperson. (9) Thyroid nodule: Code(
== END 2020-01-10 14:17 | disposition home or self-care (01) ==
PROVIDERS: Internal Medicine Cardiovascular Disease; Nurse Practitioner; Physician Assistant; Admitting Provider Family Medicine; PCP Family Medicine; Visit Provider Internal Medicine
DX: R77.8 Other specified abnormalities of plasma proteins (principal); I31.3 Pericardial effusion (noninflammatory); R07.89 Other chest pain; E04.1 Nontoxic single thyroid nodule; E03.9 Hypothyroidism, unspecified; F41.8 Other specified anxiety disorders; G40.909 Epilepsy, unspecified, not intractable, without status epilepticus; J44.9 Chronic obstructive pulmonary disease, unspecified; K21.9 Gastro-esophageal reflux disease without esophagitis; R91.1 Solitary pulmonary nodule; Z87.891 Personal history of nicotine dependence
CPT/HCPCS: 36415; 71275; 78452; 80048; 80061; 81001; 83605; 83735; 84436; 84443; 84484; 85025; 85652; 86140; 93005; 93017; 93306; 94640; A9270; A9502; G0378; G0379; J2785; Q9967

== ENCOUNTER 2020-10-13 14:09 | Emergency (ER) | payer OTHER, MEDICARE, SELFPAY ==
--- NOTE | 2020-10-13 14:20 | ED.EAR ---
HPI - Ear Problem General Chief complaint: Ear Stated complaint: ear pain Time Seen by Provider: 10/13/20 14:21 Source: patient and RN notes reviewed Mode of arrival: ambulatory Limitations: no limitations History of Present Illness HPI Narrative: 60-year-old female presents concern for right ear pain. Reports pain started last night after she shot water in her ear with a shower wand. She reports small amount of watery drainage this morning. She denies rhinorrhea, nasal congestion, sore throat. Reports slight decreased hearing. MD Complaint: ear pain Related Data Home Medications Medication Instructions Recorded Confirmed cholecalciferol (vitamin D3) 50 2,000 unit PO DAILY 05/04/19 05/26/20 mcg (2,000 unit) capsule clonazepam 0.5 mg tablet 0.25 mg PO BID tablet 05/04/19 05/26/20 lamotrigine 100 mg tablet 200 mg PO BID tablet 05/04/19 05/26/20 levothyroxine 25 mcg tablet 25 mcg PO DAILY 05/04/19 05/26/20 ibbjqiaa-pey-pkyhy acid 0.4 1 tablet PO DAILY 05/04/19 05/26/20 mg-lycopene 300 mcg-lutein 250 mcg tablet raloxifene 60 mg tablet 60 mg PO DAILY 05/04/19 05/26/20 zaleplon 10 mg capsule 10 mg PO .QHS PRN cap 05/04/19 05/26/20 lansoprazole 15 mg capsule,delayed 15 mg PO DAILY 01/08/20 05/26/20 release trazodone 50 mg tablet 50 mg PO QHS PRN 05/26/20 05/26/20 Allergies Allergy/AdvReac Type Severity Reaction Status Date / Time No Known Allergies Allergy Verified 05/26/20 16:23 Review of Systems Review of Systems: Narrative: CONSTITUTIONAL: Denies malaise, chills, sweats, or fever. EYES: Denies visual changes, redness, or discharge. ENT: Denies rhinorrhea, congestion, sinus pain, and sore throat. Reports right ear pain CARDIOVASCULAR: Denies chest pain, palpitations, or edema. RESPIRATORY: Denies cough or dyspnea. GASTROINTESTINAL: Denies abdominal pain, nausea, vomiting, diarrhea SKIN: Denies rash or itching. MUSCULOSKELETAL: Denies myalgia. NEUROLOGIC: Denies headache. All systems reviewed & are unremarkable except as noted in HPI and below PMFSH Past Medical History Medical History Anxiety Blepharitis Chronic GERD COPD (chronic obstructive pulmonary disease) Epilepsy Hypothyroidism Osteopenia Postmenopausal HRT (hormone replacement therapy) Pulmonary nodule Surgical History Surgical History History of craniotomy L temporal History of elective section times one History of exploratory laparotomy x 4 History of hysterectomy History of partial thyroidectomy Family History Family History Father Recurrent strokes Mother Acute eosinophilic leukemia Thyroid disease Anxiety Social History Social History Social History: the patient lives at home with her . He is a durable power tube sizer operator for healthcare. She has 3 children. She has 1 daughter and is at a twin boys. 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 Patient used to smoke she quit smoking about 15 years ago. She smoked for 27 years. She is not use any marijuana or illicit drugs no alcohol. She desires to be a full code. Smoking packs per day: 1 Smoking cigarettes per day: 20.0 Years smoked: 15 Smoking pack-years: 15.00 Smoking status: Former smoker Tobacco type: cigarettes Second hand tobacco smoke exposure: No Smoking end date: 03/28/05 Alcohol intake: never Alcohol use details: occasionally Substance use: never Substance use type: does not use Gender identity (if verbalized by the patient): Female Spiritual care concerns: No Comments At time of signature, agree with nursing past medical, surgical, social and family history. There is no relevant family history pertinent to the presenting complaint Exam Narrative: Exam Narrativ
[2020-10-13 14:24] VITALS: PULSE 90; RESP 16; TEMP 36.4; O2SAT 97
[2020-10-13 14:27] VITALS: BP 135/71
== END 2020-10-13 14:33 | disposition home or self-care (01) ==
PROVIDERS: Emergency Provider Nurse Practitioner; PCP Family Medicine
DX: H60.331 Swimmer's ear, right ear (principal); Z87.891 Personal history of nicotine dependence; F41.9 Anxiety disorder, unspecified; K21.9 Gastro-esophageal reflux disease without esophagitis; J44.9 Chronic obstructive pulmonary disease, unspecified; G40.909 Epilepsy, unspecified, not intractable, without status epilepticus; E03.9 Hypothyroidism, unspecified; M81.0 Age-related osteoporosis without current pathological fracture
CPT/HCPCS: 99213; G0463

== ENCOUNTER 2020-11-20 16:42 | Outpatient (CLI) | payer OTHER, MEDICARE, SELFPAY ==
--- NOTE | ~2020-11-20 | MM_ITS ---
EXAMINATION: MM screening [facility] BI w schuyler HISTORY: Screening mammogram TECHNIQUE: Craniocaudal and mediolateral oblique 3-D tomosynthesis images were obtained and synthetic 2-D images were generated. CAD analysis was submitted and interpreted. COMPARISON: 10/31/2019, 10/19/2018, 09/15/2017 BREAST PARENCHYMAL COMPOSITION: There are scattered areas of fibroglandular density. FINDINGS: There is no evidence of suspicious mass, calcification, or architectural distortion to sugg est malignancy in either breast. There has been no suspicious interval change. IMPRESSION: 1. No mammographic evidence of malignancy. 2. Recommend routine screening mammography in one year. BI-RADS Category 1: Negative Reviewed, dictated and finalized at location A.
== END 2020-11-20 16:43 | disposition home or self-care (01) ==
LOC: ANHIMG 16:46
PROVIDERS: PCP Family Medicine; Visit Provider Family Medicine
DX: Z12.31 Encounter for screening mammogram for malignant neoplasm of breast (principal)
CPT/HCPCS: 77063; 77067

== ENCOUNTER 2020-12-13 11:49 | Emergency (ER) | payer OTHER, MEDICARE, SELFPAY ==
--- NOTE | 2020-12-13 11:55 | ED.EAR ---
HPI - Ear Problem General Chief complaint: Ear Stated complaint: discharge from ear Time Seen by Provider: 12/13/20 11:55 Source: patient and RN notes reviewed History of Present Illness HPI Narrative: Patient is a 60-year-old female who presents the urgent care with complaints of drainage to the left ear. Patient states that happened back in September and she was placed on ofloxacin drops. Patient states she has used the drops twice in the last 24 hours. States that she started having some issues with wax buildup approximately 1 week ago which has not resolved. Patient states she is used peroxide and water in the ear. Currently denies of any fevers, nausea, vomiting, upper respiratory issues. No other acute complaints. No acute distress noted. Patient aware of the plan of care. Some parts of this dictation were generated by voice recognition software and may contain typographical and/or grammatical inaccuracies. Related Data Home Medications Medication Instructions Recorded Confirmed cholecalciferol (vitamin D3) 50 2,000 unit PO DAILY 05/04/19 12/13/20 mcg (2,000 unit) capsule clonazepam 0.5 mg tablet 0.25 mg PO BID tablet 05/04/19 12/13/20 lamotrigine 100 mg tablet 200 mg PO BID tablet 05/04/19 12/13/20 levothyroxine 25 mcg tablet 25 mcg PO DAILY 05/04/19 12/13/20 ucwpwmnl-tvd-sohth acid 0.4 1 tablet PO DAILY 05/04/19 12/13/20 mg-lycopene 300 mcg-lutein 250 mcg tablet raloxifene 60 mg tablet 60 mg PO DAILY 05/04/19 12/13/20 zaleplon 10 mg capsule 10 mg PO .QHS PRN cap 05/04/19 12/13/20 lansoprazole 15 mg capsule,delayed 15 mg PO DAILY 01/08/20 05/26/20 release trazodone 50 mg tablet 50 mg PO QHS PRN 05/26/20 05/26/20 Allergies Allergy/AdvReac Type Severity Reaction Status Date / Time No Known Allergies Allergy Verified 05/26/20 16:23 Review of Systems Review of Systems: CONSTITUTIONAL: Denies fever, chills, or sweats. EYES: Denies visual changes, redness, or discharge. ENT: Denies rhinorrhea, congestion, sore throat. Reports of left otalgia with drainage CARDIOVASCULAR: Denies chest pain, palpitations, or edema. RESPIRATORY: Denies cough or dyspnea. GASTROINTESTINAL: Denies abdominal pain, nausea, vomiting, or diarrhea. GENITOURINARY: Denies dysuria or hematuria. SKIN: Denies rash or itching. MUSCULOSKELETAL: Denies back pain, joint pain, or myalgia. NEUROLOGIC: Denies headache, numbness, or weakness. All other systems reviewed are negative, except as documented in HPI. [facility] Past Medical History Medical History Anxiety Blepharitis Chronic GERD COPD (chronic obstructive pulmonary disease) Epilepsy Hypothyroidism Osteopenia Postmenopausal HRT (hormone replacement therapy) Pulmonary nodule Surgical History Surgical History History of craniotomy L temporal History of elective section times one History of exploratory laparotomy x 4 History of hysterectomy History of partial thyroidectomy Family History Family History Father Recurrent strokes Mother Acute eosinophilic leukemia Thyroid disease Anxiety Social History Social History Social History: the patient lives at home with her . He is a durable power admitted attorneys for healthcare. She has 3 children. She has 1 daughter and is at a twin boys. 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 Patient used to smoke she quit smoking about 15 years ago. She smoked for 27 years. She is not use any marijuana or illicit drugs no alcohol. She desires to be a full code. Smoking packs per day: 1 Smoking cigarettes per day: 20.0 Years smoked: 15 Smoking pack-years: 15.00 Smoking status: Former smoker Tobacco type: cigarettes Second hand tobacco smoke exposure: No Smoking end d
[2020-12-13 12:03] VITALS: BP 128/87; PULSE 100; RESP 16; TEMP 36.6; O2SAT 98
== END 2020-12-13 12:26 | disposition home or self-care (01) ==
PROVIDERS: Emergency Provider Nurse Practitioner Family; PCP Family Medicine
DX: H60.92 Unspecified otitis externa, left ear (principal); J44.9 Chronic obstructive pulmonary disease, unspecified; F41.9 Anxiety disorder, unspecified; E03.9 Hypothyroidism, unspecified; Z87.891 Personal history of nicotine dependence
CPT/HCPCS: 99213; G0463

== ENCOUNTER → 2021-03-24 02:42 | Outpatient (CLI) | payer OTHER, MEDICARE, SELFPAY ==
[2021-03-24 18:04] LABS: Influenza Control Positive
[2021-03-25 03:59] LABS: SARS-CoV-2 RNA PCR Negative
== END ==
PROVIDERS: Nurse Practitioner Family; PCP Family Medicine; Visit Provider Physician Assistant
DX: R05.9 Cough, unspecified (principal); R68.83 Chills (without fever); Z20.822 Contact with and (suspected) exposure to COVID-19
CPT/HCPCS: 87804; C9803; U0003; U0005

== ENCOUNTER 2021-03-25 10:58 | Outpatient (CLI) | payer OTHER, MEDICARE, SELFPAY ==
--- NOTE | ~2021-03-25 | XR_ITS ---
EXAMINATION: XR chest 2V DATE: 03/25/2021 11:14 INDICATION: Cough and shortness of breath. TECHNIQUE: Frontal and lateral views of the chest were obtained. COMPARISON: Chest 2 views 09/02/2017, chest CT 01/09/2020 FINDINGS: There is mild scarring at the lung apices. No pleural effusion or pneumothorax. The heart s ize is normal. IMPRESSION: 1. Mild scarring at the lung apices. Reviewed, dictated and finalized at location A. RTISING STRATEGIST
== END 2021-03-25 10:59 | disposition home or self-care (01) ==
LOC: ANHIMG 11:06
PROVIDERS: PCP Family Medicine; Visit Provider Physician Assistant
DX: R05.9 Cough, unspecified (principal); R06.02 Shortness of breath; R91.8 Other nonspecific abnormal finding of lung field
CPT/HCPCS: 71046

== ENCOUNTER 2021-04-04 12:33 | Emergency (ER) | payer OTHER, MEDICARE, SELFPAY ==
--- NOTE | ~2021-04-04 | XR_ITS ---
EXAMINATION: XR lumbar spine 2-3V DATE: 04/04/2021 15:57 INDICATION: Low back pain TECHNIQUE: Anteroposterior and lateral views of the lumbar spine, and cone-down lateral view of the l umbosacral junction were obtained. COMPARISON: None. FINDINGS: There are at least 15 degrees of thoracolumbar levoscoliosis. No fracture is identified. Foster ne alignment is normal. The vertebral body heights are maintained. There is mild loss of intervertebr al disc space height throughout the lumbar spine. IMPRESSION: 1. Mild lumbar spondylosis without acute findings. Reviewed, dictated and finalized at location F. RDS MANAGEMENT COORDINATOR
--- NOTE | ~2021-04-04 | XR_ITS ---
EXAMINATION: XR hip RT 2V w AP pelvis INDICATION: Right hip pain TECHNIQUE: AP view of the pelvis and two views of the right hip are obtained. COMPARISON: None available FINDINGS: Bone alignment is normal. There is no fracture. Phleboliths are noted in the pelvis. IMPRESSION: 1. No acute osseous abnormality. Reviewed, dictated and finalized at location F. W HAT MACHINE OPERATOR
--- NOTE | ~2021-04-04 | XR_ITS ---
EXAMINATION: XR ankle RT min 3V INDICATION: Right ankle pain and swelling TECHNIQUE: Four views of the right ankle are obtained. COMPARISON: None available FINDINGS: There is no fracture, dislocation, or subluxation. The bones, soft tissues, and joint space s are normal. IMPRESSION: 1. No acute osseous abnormality. Reviewed, dictated and finalized at location F. [facility]
[2021-04-04 13:34] VITALS: BP 136/102; PULSE 89; RESP 16; TEMP 36.8; O2SAT 99
--- NOTE | 2021-04-04 15:46 | ED.LOWEXIN ---
HPI - Extremity Injury (Lower) General Chief Complaint: Extremity Injury, Lower Stated Complaint: fall, right ankle/foot pain Time Seen by Provider: 04/04/21 15:17 Source: patient Mode of arrival: ambulatory Limitations: no limitations History of Present Illness HPI Narrative: Patient is a 61-year-old female complaining of right ankle, right hip and right lower back pain, 8 out of 10, dull, aching, worse with palpation and movement, started prior to arrival after she fell on an icy pavement. Patient states that she was able to get up and ambulate after the fall. Denies any loss of consciousness. Patient denies any head, neck, chest, abdomen or any other extremity pain/injury. Related Data Home Medications Medication Instructions Recorded Confirmed cholecalciferol (vitamin D3) 50 2,000 unit PO DAILY 05/04/19 03/25/21 mcg (2,000 unit) capsule lamotrigine 100 mg tablet 200 mg PO BID tablet 05/04/19 03/25/21 levothyroxine 25 mcg tablet 25 mcg PO DAILY 05/04/19 03/25/21 ywtatwpa-kwi-knafz acid 0.4 1 tablet PO DAILY 05/04/19 03/25/21 mg-lycopene 300 mcg-lutein 250 mcg tablet raloxifene 60 mg tablet 60 mg PO DAILY 05/04/19 03/25/21 zaleplon 10 mg capsule 10 mg PO .QHS PRN cap 05/04/19 03/25/21 trazodone 50 mg tablet 50 mg PO QHS PRN 05/26/20 03/25/21 Allergies Allergy/AdvReac Type Severity Reaction Status Date / Time No Known Allergies Allergy Verified 04/04/21 15:09 Review of Systems Review of Systems: All systems reviewed & are unremarkable except as noted in HPI and below Constitutional: Constitutional: Denies body ache(s), Denies chills, Denies excessive sweating, Denies fatigue, Denies fever(s), Denies headache(s), Denies lethargy, Denies malaise, Denies weakness and Denies weight loss Eyes: Eyes: Denies blurry vision, Denies change in vision and Denies loss of vision ENT: Denies dizziness, Denies ear discharge, Denies headache(s), Denies lip swelling, Denies epistaxis, Denies nasal congestion, Denies neck pain, Denies throat swelling and Denies tongue swelling Cardiovascular: Cardiovascular: Denies chest pain, Denies chest pain at rest, Denies chest pain with activity, Denies diaphoresis, Denies rapid heart rate, Denies edema, Denies irregular heart rhythm, Denies lightheadedness, Denies palpitations, Denies dyspnea and Denies dyspnea on exertion Respiratory: Respiratory: Denies chest congestion, Denies cough, Denies hemoptysis, Denies dyspnea and Denies dyspnea on exertion Gastrointestinal: Gastrointestinal: Denies abdominal pain, Denies melena, Denies hematochezia, Denies diarrhea, Denies nausea, Denies vomiting and Denies hematemesis Musculoskeletal: Musculoskeletal: Denies deformity, Denies joint swelling, Denies neck pain and Denies numbness Neurologic: Denies Abnormal speech present, Denies abnormal gait, Denies confusion, Denies dizziness, Denies headache(s), Denies focal weakness, Denies loss of vision, Denies numbness, Denies Other visual disturbances, Denies Sensory deficit (Neuro) and Denies weakness Psychiatric: Psychiatric: Denies confusion, Denies depression, Denies auditory hallucinations, Denies homicidal ideation and Denies suicidal ideation Endocrine: Endocrine: Denies cold intolerance, Denies excessive sweating, Denies fatigue, Denies heat intolerance and Denies palpitations Hematologic/Lymphatic: Hematologic/Lymphatic: Denies easy bleeding and Denies easy bruising Allergic/Immunologic: Allergic/Immunologic: Denies lip swelling, Denies throat swelling and Denies tongue swelling PMFSH Past Medical History Medical History Anxiety Blepharitis Chronic GERD COPD (chronic obstructive pulmonary disease) Epilepsy Hypothyroidism Osteopenia Postmenopausal HRT (hormone replacement therapy) Pulmonary nodule Surgical History Surgical History History of craniotomy L temporal History of e
[2021-04-04] MEDS: HYDROcodone/acetaminophen (*CRX) 5-325 MG TABLET 1 TAB PO (16:13)
[2021-04-04] MEDS: KETOROLAC 30 MG/ML VIAL (*BKC) IM (16:13)
== END 2021-04-04 17:57 | disposition home or self-care (01) ==
PROVIDERS: Emergency Provider Emergency Medicine; PCP Family Medicine
DX: S93.401A Sprain of unspecified ligament of right ankle, initial encounter (principal); S70.01XA Contusion of right hip, initial encounter; S39.012A Strain of muscle, fascia and tendon of lower back, initial encounter; W00.0XXA Fall on same level due to ice and snow, initial encounter
CPT/HCPCS: 72100; 73502; 73610; 96372; 99284; A9270; J1885

== ENCOUNTER 2021-09-28 17:22 | Emergency (ER) | payer OTHER, MEDICARE, SELFPAY ==
--- NOTE | ~2021-09-28 | CT_ITS ---
EXAMINATION: CT soft tissue neck w con DATE: 09/28/2021 19:11 INDICATION: Facial swelling, rule out abscess, right upper tooth pain. TECHNIQUE: Computed tomography (CT) of the neck was performed with 75 mL Omnipaque-300 intravenous co ntrast. Automated exposure control and iterative reconstruction technique were employed. The dose-taj gth product was 512.87 mGy-cm. COMPARISON: None FINDINGS: Periapical lucency involving the roots of an upper right maxillary molar. Considerable artifact from dental hardware limits evaluation of the surrounding soft tissues. Right cheek/face swelling. The thy roid gland is unremarkable. The submandibular and parotid glands are symmetric. There is no cervi jessica lymphadenopathy. There are no masses identified. Thoracic aortic ectasia and arch calcificati on. The airway is unremarkable. Parapharyngeal and pre-glottic fat planes are preserved. Severe stenosis at the right carotid bifurcation, otherwise the carotid and vertebral arteries are patent. The orbits are unremarkable. Right maxillary mucosal thickening and retention cyst/polyp. Visualiz ed lung parenchyma is clear. There is cervical spondylosis. IMPRESSION: 1. Right maxillary molar periodontal disease. 2. Right cheek/face swelling/cellulitis. 3. An odontogenic abscess cannot be excluded due to metal artifact from dental hardware. 4. Severe right carotid bifurcation stenosis, recommend timely outpatient carotid ultrasound for furt her evaluation. Reviewed, dictated and finalized at location K. IMPRESSION: 1. Right maxillary molar periodontal disease. 2. Right cheek/face swelling/cellulitis. 3. An odontogenic abscess cannot be excluded due to metal artifact from dental hardware. 4. Severe right carotid bifurcation stenosis, recommend timely outpatient carot id ultrasound for further evaluation.
--- NOTE | ~2021-09-28 | CT_ITS ---
EXAMINATION: CT brain wo con DATE: 09/28/2021 19:08 INDICATION: headache htn . TECHNIQUE: Computed tomography (CT) of the head was performed without intravenous contrast. The mA wa s adjusted according to patient size. Iterative reconstruction technique was employed. The dose-lengt h product was 605.33 mGy-cm. COMPARISON: None FINDINGS: No acute intracranial hemorrhage or extra-axial fluid collection. No hydrocephalus, mass, or herniation. No acute ischemic infarct. Unremarkable dural venous sinus attenuation. No acute osseous abnormality. Right maxillary mucosal thickening and retention cyst/polyp, otherwise the aerated spaces are clear. Old left craniotomy. Left medial temporal encephalomalacia. Atherosclerotic intracranial calcificatio n. Mild atrophy and chronic white matter change. IMPRESSION: No acute intracranial process. Reviewed, dictated and finalized at location K.
[2021-09-28 17:35] VITALS: BP 133/101; PULSE 105; RESP 18; TEMP 36.6; O2SAT 100
--- NOTE | 2021-09-28 17:52 | ED.GENADULT ---
HPI - General Adult General Chief complaint: Dental/Oral <Elis Hurt MD - Last Filed: 09/28/21 18:01> Stated complaint: toothache <Elis Hurt MD - Last Filed: 09/28/21 18:01> Time Seen by Provider: 09/28/21 17:33 <Elis Hurt MD - Last Filed: 09/28/21 18:01> History of Present Illness HPI narrative: pt here with since Tuesday right dental upper molar pain so called her dentist office and oncall called in amoxicillin and taking but then more pain going to right ear and feeling dizzy with mild meza but says not spinning just lt headed no other loc/trauma/neuro changes/no f/uri/cp/sob/neck or back pain/throat issues and no n/v/d but right cheek swelling more so called dentist again told to come in and no pain meds tried <lEis Hurt MD - Last Filed: 09/28/21 18:01> Related Data Home medications: Home Medications Medication Instructions Recorded Confirmed cholecalciferol (vitamin D3) 50 2,000 unit PO DAILY 05/04/19 06/04/21 mcg (2,000 unit) capsule lamotrigine 100 mg tablet 200 mg PO BID 05/04/19 06/04/21 levothyroxine 25 mcg tablet 25 mcg PO DAILY 05/04/19 06/04/21 ffvavyga-igp-garzm acid 0.4 1 tablet PO DAILY 05/04/19 06/04/21 mg-lycopene 300 mcg-lutein 250 mcg tablet (Centrum Silver) raloxifene 60 mg tablet 60 mg PO DAILY 05/04/19 06/04/21 <Elis Hurt MD - Last Filed: 09/28/21 18:01> Allergies/adverse reactions: Allergies Allergy/AdvReac Type Severity Reaction Status Date / Time No Known Allergies Allergy Verified 09/28/21 17:38 <Elis Hurt MD - Last Filed: 09/28/21 18:01> Review of Systems Constitutional: Comments: CONSTITUTIONAL: Denies fever, chills, or sweats. EYES: Denies visual changes, redness, or discharge. ENT: Denies rhinorrhea, congestion, sore throat, has otalgia r only and right upper molar pain now right cheek red and swollen. CARDIOVASCULAR: Denies chest pain, palpitations, or edema. RESPIRATORY: Denies cough or dyspnea. GASTROINTESTINAL: Denies abdominal pain, nausea, vomiting, or diarrhea. GENITOURINARY: Denies dysuria or hematuria. SKIN: Denies rash or itching. MUSCULOSKELETAL: Denies back pain, joint pain, or myalgia. NEUROLOGIC: has headache,no numbness, or weakness. says lt headed no spinning or loc PSYCHIATRIC: Denies anxiety or depression. <Elis Hurt MD - Last Filed: 09/28/21 18:01> [facility] Past Medical History Medical History: Medical History Anxiety Blepharitis Chronic GERD Constipation COPD (chronic obstructive pulmonary disease) Endometriosis Epilepsy Hypothyroidism Osteopenia Postmenopausal HRT (hormone replacement therapy) Pulmonary nodule Skin tag 09/12/17 removal from lt breast <Elis Hurt MD - Last Filed: 09/28/21 18:01> Surgical History Surgical History: Surgical History History of craniotomy L temporal History of elective section times one--twins History of exploratory laparotomy x 4 History of hysterectomy 1994 MIKE/BSO History of partial thyroidectomy S/P breast biopsy, left (09/12/18) Benign <Elis Hurt MD - Last Filed: 09/28/21 18:01> Family History Family History: Family History Father Recurrent strokes Hypertension Cerebrovascular accident Alzheimer disease Mother Acute eosinophilic leukemia Thyroid disease Anxiety Other Breast cancer maternal aunts x2 Other Heart disease <Elis Hurt MD - Last Filed: 09/28/21 18:01> Social History Social History: Social History Social History: the patient lives at home with her . He is a durable power attorney general for healthcare. She has 3 children. She has 1 daughter and is at a twin boys. She works for a
[2021-09-28] MEDS: SODIUM CHLORIDE 0.9% IV 1,000 ML 999 ML IV CONT (18:24)
[2021-09-28 18:25] LABS: Basophils Absolute Auto 0.1 K/mm3 (0.0-0.1); Basophils Percent Auto 0.5 % (0.2-1.2); Eosinophils Absolute Auto 0.1 K/mm3 (0-0.3); Eosinophils Percent Auto 0.7 % (0-4.4); Hematocrit 42.1 % (37.0-47.0); Immature Granulocyte Absolute 0.04 K/mm3 (0.00-0.031); Immature Granulocyte Percent A 0.4 % (0-0.5); Lymphocytes Absolute Auto 1.64 K/mm3 (0.9-3.2); Lymphocytes Percent Auto 15.5 % (18.3-44.2); Mean Corpuscular HGB Conc 33.3 g/dl (32-36); Mean Corpuscular Hemoglobin 30.4 pg (26-34); Mean Corpuscular Volume 91.5 fl (80-100); Mean Platelet Volume 9.6 fl (7.4-10.4); Monocytes Percent Auto 9.6 % (2.6-8.5); Neutrophils Absolute Auto 7.8 K/mm3 (1.3-6.7); Neutrophils Percent Auto 73.3 % (45.5-73.1); Platelet Count Result 285 k/mm3 (150-375); Red Cell Distribution Width 13.7 % (11.5-14.5); White Blood Count 10.6 K/mm3 (4.5-10.0)
[2021-09-28] MEDS: ONDANSETRON INJ 4 MG/2 ML VIAL IV PUSH (18:25)
[2021-09-28] MEDS: KETOROLAC 30 MG/ML VIAL (*BKC) IV PUSH (18:25)
[2021-09-28 18:44] LABS: Lactic Acid Reflex 0.8 mmol/L (0.7-2.0)
[2021-09-28] MEDS: CLINDAMYCIN 900 MG/D5W 50 ML 900 MG/50 ML PIGGYBACK 50 MG IVPB (18:45)
[2021-09-28 18:46] LABS: Alanine Aminotransferase 32 U/L (6-35); Albumin Level 4.7 g/dL (3.5-5.1); Alkaline Phosphatase 115 U/L (38-126); Anion Gap 10 mmol/L (8-16); Aspartate Amino Transferase 32 U/L (14-36); Bilirubin,Total 0.4 mg/dL (0.2-1.3); Blood Urea Nitrogen 13 mg/dL (7-17); CRP 5.7 mg/dL (<1.0); Calcium 9.2 mg/dL (8.4-10.2); Carbon Dioxide 25 mmol/L (22-30); Chloride 105 mmol/L (98-107); Estimated CRCL calculation 75 ml/min; Estimated Glomerular Filt Rate > 60; Glucose 94 mg/dL (65-110); Potassium 3.5 mmol/L (3.4-5.0); Sodium 140 mmol/L (137-145)
[2021-09-28] MEDS: ACETAMINOPHEN 500 MG TABLET 1000 MG PO (20:21)
== END 2021-09-28 20:28 | disposition home or self-care (01) ==
PROVIDERS: Emergency Medicine; Emergency Provider Emergency Medicine; PCP Family Medicine
DX: L03.211 Cellulitis of face (principal); K05.6 Periodontal disease, unspecified; J44.9 Chronic obstructive pulmonary disease, unspecified; G40.909 Epilepsy, unspecified, not intractable, without status epilepticus; K21.9 Gastro-esophageal reflux disease without esophagitis; M85.80 Other specified disorders of bone density and structure, unspecified site; E89.0 Postprocedural hypothyroidism; Z90.711 Acquired absence of uterus with remaining cervical stump; Z90.710 Acquired absence of both cervix and uterus; Z90.722 Acquired absence of ovaries, bilateral; Z87.891 Personal history of nicotine dependence; I65.21 Occlusion and stenosis of right carotid artery
CPT/HCPCS: 36415; 70450; 70491; 80053; 83605; 85025; 86140; 87040; 87147; 87181; 87186; 96365; 96375; 99284; A9270; J1885; J2405; J7030; Q9967

== ENCOUNTER → 2021-10-09 15:20 | Outpatient (CLI) | payer OTHER, MEDICARE, SELFPAY ==
--- NOTE | ~2021-10-09 | US_ITS ---
EXAMINATION: US carotid duplex BI DATE: 10/09/2021 15:45 INDICATION: Carotid stenosis TECHNIQUE: Grayscale, color Doppler, and pulsed Doppler images of the cervical carotid arteries were obtained. The degree of vessel stenosis is placed in one of the following categories: normal, <50%, 5 0-69%, >=70% but less than near-occlusion, near-occlusion, or total occlusion. Note that percent sten osis relative to normal distal artery lumen diameter is indirectly measured from velocity measurement s as described by Samuel, et al. Radiology 2003; 229:340-346. COMPARISON: Neck CT dated 09/28/2021 FINDINGS: RIGHT: The right common carotid artery (CCA) peak systolic velocity (PSV) is 66 cm/s. The right internal car otid artery (ICA) PSV is 119 cm/s. The right ICA end-diastolic velocity (EDV) is 29 cm/s. The right I CA/CCA PSV ratio is 1.8. Grayscale and color Doppler images yield an estimate of <50% diameter reduct ion from plaque in the ICA. The external carotid artery (ECA) PSV is 93 cm/s. There is antegrade flow in the right vertebral artery. LEFT: The left CCA PSV is 68 cm/s. The left ICA PSV is 53 cm/s. The left ICA EDV is 14 cm/s. The left ICA/C CA PSV ratio is 0.8. Grayscale and color Doppler images yield an estimate of <50% diameter reduction from plaque in the ICA. The ECA PSV is 91 cm/s. There is antegrade flow in the left vertebral artery. IMPRESSION: 1. <50% stenosis in the right internal carotid artery. 2. <50% stenosis in the left internal carotid artery. Reviewed, dictated and finalized at location B.
== END ==
LOC: EXPGOSH 15:22 → EXPGOSHRAD 10-23 14:40
PROVIDERS: PCP Family Medicine; Visit Provider Family Medicine
DX: I65.23 Occlusion and stenosis of bilateral carotid arteries (principal)
CPT/HCPCS: 93880

== ENCOUNTER 2021-11-28 15:36 | Emergency (ER) | payer OTHER, MEDICARE, SELFPAY ==
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
[2021-11-28 15:40] VITALS: BP 153/93; PULSE 104; RESP 20; TEMP 36.1; O2SAT 99
--- NOTE | 2021-11-28 16:05 | PC.NURSE ---
Dr. Hallman at bedside to assess pt.
[2021-11-28] MEDS: ACETAMINOPHEN 500 MG TABLET 1000 MG PO (16:25)
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
--- NOTE | 2021-11-28 16:55 | PC.NURSE ---
Patient off unit to radiology.
[2021-11-28 18:41] VITALS: BP 150/78; PULSE 77; RESP 14; O2SAT 99
[2021-11-28 18:59] VITALS: BP 148/71; PULSE 70; RESP 20; O2SAT 99
== END 2021-11-28 19:00 | disposition home or self-care (01) ==
PROVIDERS: Emergency Provider Emergency Medicine; PCP Family Medicine
DX: M54.50 Low back pain, unspecified (principal); M54.9 Dorsalgia, unspecified; S80.02XA Contusion of left knee, initial encounter; F41.9 Anxiety disorder, unspecified; K21.9 Gastro-esophageal reflux disease without esophagitis; J44.9 Chronic obstructive pulmonary disease, unspecified; G40.909 Epilepsy, unspecified, not intractable, without status epilepticus; E03.9 Hypothyroidism, unspecified; V43.62XA Car passenger injured in collision with other type car in traffic accident, initial encounter
CPT/HCPCS: 72072; 72100; 72125; 73564; 99284; A9270

== ENCOUNTER 2022-01-26 08:18 | Outpatient (CLI) | payer OTHER, MEDICARE, SELFPAY ==
--- NOTE | ~2022-01-26 | MM_ITS ---
EXAMINATION: MM screening reed BI w schuyler HISTORY: Screening TECHNIQUE: Craniocaudal and mediolateral oblique 3-D tomosynthesis images were obtained and synthetic 2-D images were generated. CAD analysis was submitted and interpreted. COMPARISON: Comparison to multiple prior studies sequentially, with oldest reviewed study dated 09/15. BREAST PARENCHYMAL COMPOSITION: The breasts are almost entirely fatty. FINDINGS: There is no evidence of suspicious mass, calcification, or architectural distortion to sugg est malignancy in either breast. There has been no suspicious interval change. IMPRESSION: 1. No mammographic evidence of malignancy. 2. Recommend routine screening mammography in one year. BI-RADS Category 1: Negative Reviewed, dictated and finalized at location A.
== END 2022-01-26 08:19 | disposition home or self-care (01) ==
LOC: ANHIMG 08:19
PROVIDERS: PCP Family Medicine; Visit Provider Physician Assistant
DX: Z12.31 Encounter for screening mammogram for malignant neoplasm of breast (principal)
CPT/HCPCS: 77063; 77067

== ENCOUNTER 2022-02-09 00:45 | Day surgery (SDC) | payer OTHER, MEDICARE, SELFPAY ==
[2022-02-02 13:32] VITALS: BMI 30.2
[2022-02-09 06:22] VITALS: BP 123/58; PULSE 90; RESP 18; TEMP 36.4; O2SAT 98; BMI 30.6
[2022-02-09] MEDS: LACTATED RINGERS 1,000 ML 150 ML IV CONT (06:31)
--- NOTE | 2022-02-09 07:37 | PM.HPGS ---
History of Present Illness History of Present Illness Consent: Risks, benefits, and alternatives have been discussed and questions answered. Patient agrees to proceed with procedure. Chief complaint: dysphagia Narrative: Mary Weinberg is a 62 year old female Presents for EGD. Patient has had some difficulty swallowing saliva. She has no difficulty with food however. Patient has noticed a clicking sensation when swallowing this has been present over the last 1 year. Patient has a distant history of thyroidectomy perhaps 15 years ago. Patient presents today for EGD to exclude organic disease. Recent ENT evaluation was unremarkable. Review of Systems Review of Systems: Review of systems noncontributory. [facility] Past Medical History Medical History Anxiety Blepharitis Chronic GERD Constipation COPD (chronic obstructive pulmonary disease) Endometriosis Epilepsy Hypothyroidism Osteopenia Postmenopausal HRT (hormone replacement therapy) Pulmonary nodule Skin tag 09/12/17 removal from lt breast Surgical History Surgical History History of craniotomy L temporal History of elective section times one--twins History of exploratory laparotomy x 4 History of hysterectomy 1994 MIKE/BSO History of partial thyroidectomy S/P breast biopsy, left (09/12/18) Benign Family History Family History Father Recurrent strokes Hypertension Cerebrovascular accident Alzheimer disease Mother Acute eosinophilic leukemia Thyroid disease Anxiety Other Breast cancer maternal aunts x2 Other Heart disease Social History Social History Social History: the patient lives at home with her . He is a durable power [employer] attorney for healthcare. She has 3 children. She has 1 daughter and is at a twin boys. 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 Patient used to smoke she quit smoking about 15 years ago. She smoked for 27 years. She is not use any marijuana or illicit drugs no alcohol. She desires to be a full code. 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 05/04/19 02/02/22 History mcg (2,000 unit) capsule lamotrigine 100 mg tablet 200 mg PO BID 05/04/19 02/02/22 History levothyroxine 25 mcg tablet 25 mcg PO DAILY 05/04/19 02/02/22 History ofhxpjan-zvq-nvqrw acid 0.4 1 tablet PO DAILY 05/04/19 02/02/22 History mg-lycopene 300 mcg-lutein 250 mcg tablet (Centrum Silver) raloxifene 60 mg tablet 60 mg PO DAILY 05/04/19 02/02/22 History albuterol sulfate 90 mcg/actuation 1 inh inhalation Q4H PRN shortness 03/25/21 02/02/22 Rx aerosol inhaler of breath or wheezing #6.7 grams estradiol 0.01% (0.1 mg/gram) 1 g vaginal 3XW #42.5 grams 06/04/21 02/02/22 Rx vaginal cream omeprazole 40 mg capsule,delayed 40 mg PO DAILY #90 caps 08/26/21 02/02/22 Rx release aspirin 81 mg tablet,delayed 81 mg PO DAILY #90 tabs 10/01/21 02/02/22 Rx release (Adult Low Dose Aspirin)
[2022-02-09 07:40] VITALS: BP 116/65; PULSE 72; RESP 15; O2SAT 99
[2022-02-09 07:50] VITALS: BP 100/66; PULSE 77; RESP 18; O2SAT 99
[2022-02-09 08:00] VITALS: BP 138/87; PULSE 78; RESP 16; O2SAT 97
== END 2022-02-09 08:10 | disposition home or self-care (01) ==
PROVIDERS: PCP Family Medicine; Visit Provider Internal Medicine Gastroenterology
PROC: 0DJ08ZZ Inspection of Upper Intestinal Tract, Via Natural or Artificial Opening Endoscopic (ICD-10-PCS; CPT 43235; principal; 2022-02-09 07:30)
DX: R13.10 Dysphagia, unspecified (principal); Z86.010 Personal history of colon polyps; Z87.891 Personal history of nicotine dependence; K21.9 Gastro-esophageal reflux disease without esophagitis; E03.9 Hypothyroidism, unspecified
CPT/HCPCS: 43235; J2704; J7120

== ENCOUNTER → 2022-03-17 14:10 | Outpatient (CLI) | payer OTHER, MEDICARE, SELFPAY ==
--- NOTE | ~2022-03-17 | MR_ITS ---
EXAMINATION: MR brain IAC wo/w con DATE: 03/17/2022 15:19 INDICATION: Unilateral tinnitus. TECHNIQUE: Magnetic resonance imaging (MRI) of the brain, brainstem, and internal auditory canals was performed without and with 18 mL MultiHance intravenous contrast. COMPARISON: Head CT 09/28/2021 FINDINGS: There is chronic encephalomalacia in left temporal lobe. There are changes of left-sided cr aniotomy. There are scattered areas of nonspecific increased T2-weighted signal intensity in the cere bral white matter, which is within normal limits for the patient's age. There is no intracranial hemo rrhage, acute infarction, or abnormal intracranial mass lesion. There is ex vacuo dilatation of tempo ral horn of left lateral ventricle. The paranasal sinuses are clear. The orbits are normal. The masto id air cells are normal. The internal auditory canals and inner and middle ears are normal. IMPRESSION: 1. Chronic encephalomalacia in left temporal lobe. Reviewed, dictated and finalized at location A. ER SETTER
== END ==
PROVIDERS: PCP Family Medicine; Visit Provider Nurse Practitioner Family
DX: H93.19 Tinnitus, unspecified ear (principal)
CPT/HCPCS: 70553; A9577

== ENCOUNTER 2022-03-31 10:51 | Outpatient (CLI) | payer OTHER, SELFPAY ==
--- NOTE | ~2022-03-31 | XR_ITS ---
EXAMINATION: XR elbow LT min 3V DATE: 03/31/2022 11:22 INDICATION: Left elbow pain. Fall. TECHNIQUE: 4 views of left elbow were obtained. COMPARISON: None. FINDINGS: There is a fracture of capitellum of distal humerus. The distal fracture fragment demonstra jennifer 12 mm anterior and proximal displacement with superior rotation of the articular surface, which n o longer abuts the radial head. The radius maintains a normal relationship with respect to the ulna. The ulnohumeral joint is normal. There are enthesophytes at the medial and lateral humeral epicondyle s. There is an elbow joint effusion. IMPRESSION: 1. Displaced fracture of capitellum of distal humerus with dislocation of the radiocapitellar joint. 2. Elbow joint effusion. Reviewed, dictated and finalized at location A. L PLATER IMPRESSION: 1. Displaced fracture of capitellum of distal humerus with dislocation of the r adiocapitellar joint. 2. Elbow joint effusion.
== END 2022-03-31 10:52 | disposition home or self-care (01) ==
PROVIDERS: PCP Family Medicine; Visit Provider Physician Assistant
DX: S59.902A Unspecified injury of left elbow, initial encounter (principal); S42.492A Other displaced fracture of lower end of left humerus, initial encounter for closed fracture; M25.422 Effusion, left elbow
CPT/HCPCS: 73080

== ENCOUNTER 2022-04-08 00:27 | Day surgery (SDC) | payer OTHER, SELFPAY ==
[2022-04-05 10:01] VITALS: BMI 29.7
--- NOTE | 2022-04-05 10:09 | PC.NURSE ---
Report to the Outpatient Waiting Room, entrance under the green pavilion located off [facility], at time 1000 on date 04/08/22. Planned Procedure Time: 1200. Time changes happen often and if your time is changed the preop area will call you the afternoon before. - You and your visitor will be asked to self-screen and do not enter if you have any COVID symptoms. - Only one visitor is requested with a max of two and NO children visitors are allowed at this time. - The patient visitor may be requested to leave or wait in car when not with patient due to distancing restrictions. - A mask is REQUIRED within the hospital. Patients may have clear liquids (water, carbonated beverages, clear teas, apple juice) until 3 hours prior to surgery with a maximum of 20 ounces. - No food from midnight until time of surgery Take the following medications with a SIP of water the morning of surgery: LEVOTHYROXINE, LAMOTRIGINE, INHALERS, PAIN PILL IF NEEDED Medications to discontinue per physician: VITAMINS/SUPPLEMENTS Date to take last dose: NO MORE UNTIL AFTER SURGERY PT CALLING DR. BLAKELY TO ASK ABOUT CONTINUING MELOXICAM. Please no make-up, nail urdu, hairspray, perfume, deodorant, or body powder the day of surgery. No jewelry (including any body piercings) or valuables the day of surgery, leave them at home. Please take a shower or bath the night before, or the morning of, surgery with an antibacterial soap. Wear comfortable, loose fitting clothing. - Jewelry must be removed prior to entering the operating room. Rings and piercings that are not removed may be cut off. - The hospital will not accept responsibility for valuables. - Please leave all valuables, including medications, at home the day of surgery. If you are going home after surgery, a licensed residential driver must drive you home. - NO public transportation without another adult if you receive anesthesia. - We recommend that an adult stay with you for 24 hours following discharge. - We also recommend that you do not drive, make important decision, drink alcoholic beverages, or take any drugs that were not prescribed by your health care provider for at least 24 hours after your discharge time. Follow any additional instructions given to you from your surgeon. If you or anyone in your household have experienced Covid symptoms in the past week, please notify your surgeon or the nurse liaison at the phone number below for possible testing. Telephone instructions given to MADHAV - [facility]TA DEL RIO and asked if any additional questions and then verbalized understanding. Patient advised to call surgeon office or pre surgery nurse liaison [phone] if any additional questions.
[2022-04-08] VITALS (9 sets, daily range): BP systolic 94–156; BP diastolic 62–90; PULSE 79–94; RESP 14–18; TEMP 36.6–36.8; O2SAT 91–97
--- NOTE | ~2022-04-08 | XR_ITS ---
EXAMINATION: XR surgery orthopedic DATE: 04/08/2022 12:19 INDICATION: ORIF left elbow fracture TECHNIQUE: 4 fluoroscopic images of the left elbow were obtained during procedure performed by Dr. Rodolfo hirsch. Radiologist was not present for the imaging or procedure. The amount of fluoroscopy time used during this procedure was 0.3 minutes. COMPARISON: None. FINDINGS: Line interval reduction and internal fixation of a lateral condylar fracture of the distal left humerus. The fracture fragment appears in essentially anatomic alignment and is fixed with a albino r of cannulated compression screws. No other fractures identified. Expected small amount of postopera tive gas within the otherwise normal-appearing joint space. IMPRESSION: 1. Near-anatomic alignment post open reduction internal fixation of a lateral condylar fracture of th e distal left humerus. Reviewed, dictated and finalized at location A. NT [employer] SPECIALIST IMPRESSION: 1. Near-anatomic alignment post open reduction internal fixation of a lateral c ondylar fracture of the distal left humerus.
--- NOTE | 2022-04-08 07:13 | WPDHPUPDATE1 ---
History and Physical Update Update Date/Time: 04/08/22 07:13 History and Physical has been reviewed, including an updated exam of the patient. There are NO changes in the patient's condition. Risks, benefits, and alternatives have been discussed and questions answered. Patient agrees to proceed with procedure.
[2022-04-08] MEDS: LACTATED RINGERS 1,000 ML 30 ML IV CONT ×2 (10:24→12:40)
[2022-04-08] MEDS: KETOROLAC 15 MG/ML VIAL (*BKC) IV PUSH (10:25)
[2022-04-08] MEDS: ACETAMINOPHEN 500 MG TABLET 1000 MG PO (10:25)
--- NOTE | 2022-04-08 10:29 | WPDANESEPPF ---
Anes - Initial Pre Proc Eval Procedure: Operation Date: 04/08/22 12:00 Proposed Procedures p Open Reduction Internal Fixation Left Elbow Fracture - Rishi Mulligan MD Date/Time: 04/08/22 10:29 Surgeon: Rishi Mulligan MD Pre Op Diagnosis: left elbow fx Patient Data Age: 62 Gender: F Height: 1.71 m Weight: 87.54 kg Allergies Allergy/AdvReac Type Severity Reaction Status Date / Time No Known Allergies Allergy Verified 04/05/22 09:53 Home Medications Medication Instructions Recorded Confirmed Type cholecalciferol (vitamin D3) 50 2,000 unit PO DAILY 05/04/19 04/05/22 History mcg (2,000 unit) capsule lamotrigine 100 mg tablet 200 mg PO BID 05/04/19 04/05/22 History levothyroxine 25 mcg tablet 25 mcg PO DAILY 05/04/19 04/05/22 History hqubigbu-iuj-fdyfb acid 0.4 1 tablet PO DAILY 05/04/19 04/05/22 History mg-lycopene 300 mcg-lutein 250 mcg tablet (Centrum Silver) raloxifene 60 mg tablet 60 mg PO DAILY 05/04/19 04/05/22 History albuterol sulfate 90 mcg/actuation 1 inh inhalation Q4H PRN shortness 03/25/21 04/05/22 Rx aerosol inhaler of breath or wheezing #6.7 grams estradiol 0.01% (0.1 mg/gram) 1 g vaginal 3XW #42.5 grams 06/04/21 04/05/22 Rx vaginal cream aspirin 81 mg tablet,delayed 81 mg PO DAILY #90 tabs 10/01/21 04/05/22 Rx release (Adult Low Dose Aspirin) tiotropium bromide 18 mcg capsule 1 cap inhalation DAILY #90 11/27/21 04/05/22 Rx with inhalation device (Spiriva inhalations with HandiHaler) atorvastatin 20 mg tablet 20 mg PO DAILY #90 tabs 01/27/22 04/05/22 Rx cyclosporine 0.05 % eye drops in a 1 drp EACH EYE BID 02/02/22 04/05/22 History dropperette (Restasis) quetiapine 25 mg tablet 25 mg PO HS 02/02/22 04/05/22 History omeprazole 40 mg capsule,delayed 40 mg PO DAILY #90 caps 03/01/22 04/05/22 Rx release meloxicam 15 mg tablet 15 mg PO DAILY #30 tabs 03/30/22 04/05/22 Rx hydrocodone 5 mg-acetaminophen 325 1 tablet PO Q12H PRN pain #14 tabs 03/31/22 04/05/22 Rx mg tablet Patient hx anesthesia problems: none Family hx anesthesia problems: none Results Review: All pre-operative results and documents have been reviewed as part of the pre-operative evaluation. [facility] Past Medical History Medical History Anxiety Blepharitis Chronic GERD Closed fracture of capitellum of left humerus Constipation COPD (chronic obstructive pulmonary disease) Endometriosis Epilepsy Hypothyroidism Osteopenia Postmenopausal HRT (hormone replacement therapy) Pulmonary nodule Skin tag 09/12/17 removal from lt breast Surgical History Surgical History History of craniotomy L temporal History of elective section times one--twins History of exploratory laparotomy x 4 History of hysterectomy 1994 MIKE/BSO History of partial thyroidectomy S/P breast biopsy, left (09/12/18) Benign Family History Family History Father Recurrent strokes Hypertension Cerebrovascular accident Alzheimer disease Mother Acute eosinophilic leukemia Thyroid disease Anxiety Other Breast cancer maternal aunts x2 Other Heart disease Social History Social History Social History: the patient lives at home with her . He is a durable power deputy county attorney for healthcare. She has 3 children. She has 1 daughter and is at a twin boys. 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 Patient used to smoke she quit smoking about 15 years ago. She smoked for 27 years. She is not use any marijuana or illicit drugs no alcohol. She desires to be a full code. Smoking packs per day: 1 Smoking cigarettes per day: 20.0 Years smoked: 25 Smoking pack-years: 25.00 Smoking status: Former smoker Tobacco type: cigarettes Second
[2022-04-08] MEDS: ceFAZolin 2 GM/D5W 50 ML 2 GM/50 ML BAG IVPB (10:46)
[2022-04-08] MEDS: BUPIVACAINE HCL 0.5% PF 30 ML VIAL 20 ML INFILTRATE (11:12)
--- NOTE | 2022-04-08 13:06 | W.PM.PROC2 ---
Procedure Note - Detailed Date of Procedure 04/08/22 Pre-op Diagnosis left elbow fx Post-op Diagnosis Same Procedure Performed Open reduction internal fixation left elbow distal humerus lateral condyle fracture Surgeon Rishi Mulligan MD [employer] Operator 1st assistant professor of physics Anesthesia General Indications 62-year-old woman who fell and sustained fracture of the left distal humerus lateral condyle. There is noted to be displacement and rotation of the fracture. Patient presents for operative treatment. Findings Lateral condyle fracture with rotation and 100% displacement. Mild traumatic chondromalacia radial head. Description of Procedure Patient identified in the preoperative holding. Informed consent given. Operative extremity marked. Patient received intravenous antibiotics. Patient brought to the operating room where underwent general anesthetic by anesthesia team. Positioned supine on operating room table. Time-out performed confirming the patient, site of the surgery and the plan. left arm prepped draped usual sterile surgical fashion using a ChloraPrep skin solution. Hand and arm exsanguinated and proximal arm tourniquet inflated to 225 mmHg. Posterolateral approach to the lateral elbow utilized. An oblique incision was made over the radial capitellar joint with a 15 blade knife. Hemostasis controlled electrocautery. Fascia was incised in line with skin incision. Forearm was placed in 2 maximum pronation and the extensor wad was split between the extensor carpi ulnaris and the anconeus. Capsule overlying the joint was then incised in line with skin incision and large effusion was noted and suctioned out. Fracture of the distal humerus was visualized. Any loose fragments or pieces were removed with a rongeur. The distal fracture fragment had rotated anterior to the distal humerus. This was located and freed up from soft tissue. Thorough irrigation of the fracture site and the fragment was then reduced. Care was taken to anatomically reduce the articular surface. Fixation achieved with 2.5 mm cannulated screws x2 placed anterior to posterior. The screws were recessed 4 mm within the subchondral bone. Image intensification confirmed reduction of the fracture and placement of the hardware. Elbow was taken through full range of motion and noted to have no impingement and fracture noted to be stable. Wound thoroughly irrigated with saline and suctioned. Capsule repaired with 2 Vicryl interrupted suture. Fascia repaired with 2 Vicryl interrupted suture. Subcutaneous tissue repaired with 3 0 Monocryl suture and skin approximated with glue. Sterile dressing applied. The patient was then woken from anesthesia, extubated and taken to the recovery room in stable condition. All sponge, needle, instrument counts were correct at the end of the case. Implants Arthrex 2.5 mm cannulated headless screw x2 Estimated Blood Loss -10.0 Tourniquet Time 80 Drains No Packing No Pathology None sent Complications None Condition Stable Disposition PACU [facility] Billing Surgery - Charge Forward: Surgery Billing ([id number])
[2022-04-08] MEDS: ONDANSETRON INJ 4 MG/2 ML VIAL IV PUSH (13:37)
== END 2022-04-08 15:12 | disposition home or self-care (01) ==
PROVIDERS: PCP Family Medicine; Visit Provider Orthopaedic Surgery
PROC: (CPT 24579; principal; 2022-04-08 12:00)
DX: S42.452A Displaced fracture of lateral condyle of left humerus, initial encounter for closed fracture (principal); W01.0XXA Fall on same level from slipping, tripping and stumbling without subsequent striking against object, initial encounter; M94.222 Chondromalacia, left elbow; J44.9 Chronic obstructive pulmonary disease, unspecified; G40.909 Epilepsy, unspecified, not intractable, without status epilepticus; E03.9 Hypothyroidism, unspecified; F41.9 Anxiety disorder, unspecified; Z87.891 Personal history of nicotine dependence; E66.9 Obesity, unspecified; Z68.29 Body mass index [BMI] 29.0-29.9, adult; Z79.51 Long term (current) use of inhaled steroids; Z79.82 Long term (current) use of aspirin
CPT/HCPCS: 24579; 99199; A4565; A9270; J0690; J1100; J1885; J2250; J2370; J2405; J2704; J3010; J7120

== ENCOUNTER 2022-11-04 07:19 | Outpatient (CLI) | payer OTHER, MEDICARE, SELFPAY ==
[2022-11-04 08:10] LABS: Alanine Aminotransferase 31 U/L (6-35); Albumin Level 4.2 g/dL (3.5-5.1); Alkaline Phosphatase 132 U/L (38-126); Anion Gap 5 mmol/L (8-16); Aspartate Amino Transferase 36 U/L (14-36); Bilirubin,Total 0.5 mg/dL (0.2-1.3); Blood Urea Nitrogen 12 mg/dL (7-17); Calcium 9.1 mg/dL (8.4-10.2); Carbon Dioxide 30 mmol/L (22-30); Chloride 104 mmol/L (98-107); Cholesterol 181 mg/dL (0-200); Estimated Glomerular Filt Rate > 60; Glucose 94 mg/dL (65-110); HDL Direct 80 mg/dL; Potassium 3.9 mmol/L (3.4-5.0); Sodium 139 mmol/L (137-145); Triglycerides 196 mg/dL (<150)
[2022-11-04 08:21] LABS: LDL Cholesterol Direct 59 mg/dL
[2022-11-04 08:23] LABS: Basophils Absolute Auto 0.1 K/mm3 (0.0-0.1); Basophils Percent Auto 1.3 % (0.2-1.2); Eosinophils Absolute Auto 0.2 K/mm3 (0-0.3); Eosinophils Percent Auto 2.6 % (0-4.4); Hematocrit 40.8 % (37.0-47.0); Hemoglobin 12.9 g/dL (12.0-15.0); Immature Granulocyte Absolute 0.03 K/mm3 (0.00-0.031); Immature Granulocyte Percent A 0.3 % (0-0.5); Lymphocytes Absolute Auto 3.95 K/mm3 (0.9-3.2); Lymphocytes Percent Auto 45.2 % (18.3-44.2); Mean Corpuscular HGB Conc 31.6 g/dl (32-36); Mean Corpuscular Hemoglobin 30.1 pg (26-34); Mean Corpuscular Volume 95.1 fl (80-100); Mean Platelet Volume 10.1 fl (7.4-10.4); Monocytes Percent Auto 11.3 % (2.6-8.5); Neutrophils Absolute Auto 3.4 K/mm3 (1.3-6.7); Neutrophils Percent Auto 39.3 % (45.5-73.1); Platelet Count Result 335 k/mm3 (150-375); Red Blood Count 4.29 M/mm3 (4.2-5.4); Red Cell Distribution Width 13.7 % (11.5-14.5); White Blood Count 8.7 K/mm3 (4.5-10.0)
[2022-11-04 08:31] LABS: Appearance Urine Clear (Clear); Bacteria Urine None Seen /hpf; Bilirubin Urine Negative (Negative); Blood Urine Negative (Negative); Color Urine Yellow (Yellow); Glucose Urine UA Negative (Negative); Ketones Urine Negative (Negative); Leukocyte Esterase Ur 2+ LEU/UL (NEGATIVE); Nitrate Urine Negative (Negative); Non Pathogenic Casts 0-2; Protein Urine Negative (Negative); RBC Urine 0-2 /hpf (0-2); Squamous Epithelial Cell Urine Occasional /hpf (Few); Urobilinogen Urine 0.2 mg/dL (<2.0); pH Urine 7.5 (5.0-9.0)
[2022-11-04 08:36] LABS: Add Urine Microscopic? YES
== END 2022-11-04 07:20 | disposition home or self-care (01) ==
LOC: ANHLAB 07:22
PROVIDERS: PCP Family Medicine; Visit Provider Family Medicine
DX: Z00.00 Encounter for general adult medical examination without abnormal findings (principal); I10 Essential (primary) hypertension
CPT/HCPCS: 36415; 80053; 80061; 81001; 85025

== ENCOUNTER 2023-04-29 09:36 | Outpatient (CLI) | payer OTHER, MEDICARE, SELFPAY ==
[2023-04-29 10:49] LABS: Alanine Aminotransferase 47 U/L (6-35); Albumin Level 4.1 g/dL (3.5-5.1); Alkaline Phosphatase 127 U/L (38-126); Anion Gap 6 mmol/L (8-16); Aspartate Amino Transferase 50 U/L (14-36); Bilirubin,Total 0.5 mg/dL (0.2-1.3); Blood Urea Nitrogen 15 mg/dL (7-17); Calcium 9.3 mg/dL (8.4-10.2); Carbon Dioxide 28 mmol/L (22-30); Chloride 107 mmol/L (98-107); Estimated Glomerular Filt Rate > 60; Glucose 92 mg/dL (65-110); Sodium 141 mmol/L (137-145)
== END 2023-04-29 09:37 | disposition home or self-care (01) ==
LOC: ANHLAB 09:41
PROVIDERS: PCP Family Medicine; Visit Provider Physician Assistant
DX: I10 Essential (primary) hypertension (principal)
CPT/HCPCS: 36415; 80053

== ENCOUNTER 2023-04-30 09:20 | Emergency (ER) | payer OTHER, MEDICARE, SELFPAY ==
[2023-04-30 09:32] VITALS: BP 128/74; PULSE 97; RESP 16; TEMP 36.6; O2SAT 99
--- NOTE | 2023-04-30 09:35 | ED.EAR ---
HPI - Ear Problem General Chief complaint: Ear Stated complaint: Ear Infection, Fever Time Seen by Provider: 04/30/23 09:37 Source: patient Mode of arrival: ambulatory Limitations: no limitations History of Present Illness HPI Narrative: 63 y/o female presented for c/o left ear pressure and decreased hearing, feeling off balance, and pressure behind left eye. Onset 4 days. PCP prescribed neomycin ear drops and pt had been using hydrogen peroxide. Endorses wax has drained but still has pressure. Denies tinnitus, sinus congestion, nausea, vomiting, or fever. MD Complaint: ear pain Related Data Home Medications Medication Instructions Recorded Confirmed cholecalciferol (vitamin D3) 50 2,000 unit PO DAILY 05/04/19 04/30/23 mcg (2,000 unit) capsule lamotrigine 100 mg tablet 200 mg PO BID 05/04/19 04/30/23 levothyroxine 25 mcg tablet 25 mcg PO DAILY 05/04/19 04/30/23 qqkzytxy-pbo-rjsex acid 0.4 1 tablet PO DAILY 05/04/19 04/30/23 mg-lycopene 300 mcg-lutein 250 mcg tablet (Centrum Silver) raloxifene 60 mg tablet 60 mg PO DAILY 05/04/19 04/30/23 cyclosporine 0.05 % eye drops in a 1 drp EACH EYE BID 02/02/22 04/30/23 dropperette (Restasis) Allergies Allergy/AdvReac Type Severity Reaction Status Date / Time No Known Allergies Allergy Verified 04/30/23 09:36 Review of Systems Review of Systems: CONSTITUTIONAL: Denies malaise, chills, or fever. EYES: Denies visual changes, redness, or discharge. ENT: Denies rhinorrhea, congestion, sinus pain, and sore throat. Reports ear pain CARDIOVASCULAR: Denies chest pain, palpitations, or edema. RESPIRATORY: Denies cough or dyspnea. GASTROINTESTINAL: Denies abdominal pain, nausea, vomiting, diarrhea SKIN: Denies rash or itching. MUSCULOSKELETAL: Denies myalgia. NEUROLOGIC: Denies headache. All systems reviewed & are unremarkable except as noted in HPI and below PMFSH Past Medical History Medical History Anxiety Blepharitis Chronic GERD Closed fracture of capitellum of left humerus Constipation COPD (chronic obstructive pulmonary disease) Endometriosis Epilepsy Hypothyroidism Osteopenia Postmenopausal HRT (hormone replacement therapy) Pulmonary nodule Skin tag 09/12/17 removal from lt breast Surgical History Surgical History History of craniotomy L temporal History of elective section times one--twins History of exploratory laparotomy x 4 History of hysterectomy 1994 MIKE/BSO History of partial thyroidectomy S/P breast biopsy, left (09/12/18) Benign Family History Family History Father Recurrent strokes Hypertension Cerebrovascular accident Alzheimer disease Mother Acute eosinophilic leukemia Thyroid disease Anxiety Other Breast cancer maternal aunts x2 Other Heart disease Social History Social History Social History: the patient lives at home with her . He is a durable power towing pilot for healthcare. She has 3 children. She has 1 daughter and is at a twin boys. 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 Patient used to smoke she quit smoking about 15 years ago. She smoked for 27 years. She is not use any marijuana or illicit drugs no alcohol. She desires to be a full code. Smoking packs per day: 1 Smoking cigarettes per day: 20.0 Years smoked: 25 Smoking pack-years: 25.00 Smoking status: Former smoker Tobacco type: cigarettes Second hand tobacco smoke exposure: No Smoking end date: 03/28/04 Alcohol intake: never Alcohol use details: occasionally Substance use: never Substance use type: does not use Living arrangements: with family Additional living arrangements comments: spouse Occupation/Education: occupation Additional occu
--- NOTE | 2023-04-30 10:27 | PC.NURSE ---
0950- PRISONER CLASSIFICATION INTERVIEWER using elephant ear in attempt to flush wax from left ear.
== END 2023-04-30 10:06 | disposition home or self-care (01) ==
PROVIDERS: Emergency Provider Nurse Practitioner Family; PCP Family Medicine
DX: H69.92 Unspecified Eustachian tube disorder, left ear (principal); H61.22 Impacted cerumen, left ear; Z87.891 Personal history of nicotine dependence; K21.9 Gastro-esophageal reflux disease without esophagitis; J44.9 Chronic obstructive pulmonary disease, unspecified; N80.9 Endometriosis, unspecified; E03.9 Hypothyroidism, unspecified; M85.80 Other specified disorders of bone density and structure, unspecified site; G40.909 Epilepsy, unspecified, not intractable, without status epilepticus
CPT/HCPCS: 69210; 99212; G0463

== ENCOUNTER 2023-06-10 09:45 | Outpatient (CLI) | payer OTHER, MEDICARE, SELFPAY ==
[2023-06-10 10:58] LABS: Alanine Aminotransferase 35 U/L (6-35); Albumin Level 4.2 g/dL (3.5-5.1); Alkaline Phosphatase 130 U/L (38-126); Anion Gap 8 mmol/L (8-16); Aspartate Amino Transferase 48 U/L (14-36); Bilirubin,Total 0.5 mg/dL (0.2-1.3); Blood Urea Nitrogen 13 mg/dL (7-17); Calcium 9.4 mg/dL (8.4-10.2); Carbon Dioxide 22 mmol/L (22-30); Chloride 106 mmol/L (98-107); Estimated Glomerular Filt Rate > 60; Glucose 101 mg/dL (65-110); Potassium 3.9 mmol/L (3.4-5.0); Sodium 136 mmol/L (137-145)
== END 2023-06-10 09:46 | disposition home or self-care (01) ==
LOC: ANHLAB 09:48
PROVIDERS: PCP Family Medicine; Visit Provider Physician Assistant
DX: R79.89 Other specified abnormal findings of blood chemistry (principal)
CPT/HCPCS: 36415; 80053

== ENCOUNTER 2023-08-03 16:56 | Outpatient (CLI) | payer OTHER, MEDICARE, SELFPAY ==
[2023-08-10 10:03] LABS: Lamotrigine Lamictal 11.5 mcg/mL (2.5-15.0)
== END 2023-08-03 16:57 | disposition home or self-care (01) ==
PROVIDERS: PCP Family Medicine
DX: G40.109 Localization-related (focal) (partial) symptomatic epilepsy and epileptic syndromes with simple partial seizures, not intractable, without status epilepticus (principal)
CPT/HCPCS: 36415; 80175

== ENCOUNTER 2023-08-05 21:03 | Observation (INO) | payer OTHER, MEDICARE, SELFPAY ==
--- NOTE | ~2023-08-05 | MR_ITS ---
EXAMINATION: MR thoracic spine wo/w con DATE: 08/07/2023 13:41 INDICATION: Gait instability. Leg weakness and tingling. TECHNIQUE: Magnetic resonance imaging (MRI) of the thoracic spine was performed without and with 18 m L MultiHance intravenous contrast. COMPARISON: None FINDINGS: Bone alignment is normal. There is mild chronic anterior wedging at T10-L1 vertebral bodies . There are hemangiomas in T5 and T9 vertebral bodies. Intervertebral disc heights are normal in thor acic spine. At T1-T2, there is a right foraminal protrusion. There is multilevel mild to moderate fac et joint osteoarthritis. On the right, there is moderate neural foraminal stenosis at T1-T2 and mild neural foraminal stenosis at T2-T3. No central canal stenosis. The spinal cord signal intensity is no rmal. IMPRESSION: 1. Moderate right neural foraminal stenosis at T1-T2. Otherwise mild thoracic spondylosis. Reviewed, dictated and finalized at location E. IMPRESSION: 1. Moderate right neural foraminal stenosis at T1-T2. Otherwise mild thoracic s pondylosis.
--- NOTE | ~2023-08-05 | MR_ITS ---
EXAMINATION: MR cervical spine wo/w con DATE: 08/07/2023 13:40 INDICATION: Gait instability. Leg weakness and tingling. TECHNIQUE: Magnetic resonance imaging (MRI) of the cervical spine was performed without and with 18 m L MultiHance intravenous contrast. COMPARISON: None FINDINGS: There is mild kyphosis of cervical spine. Vertebral body heights are normal. There is mildl y decreased disc height at C4-C5 and mildly decreased disc height at C5-C6 and C6-C7. The spinal cord signal intensity is normal. The following disc levels are specifically discussed: C2-C3: There is a central protrusion. There is mild left uncovertebral joint osteoarthritis. There is severe bilateral facet joint osteoarthritis. There is mild left neural foraminal stenosis. There is no central canal stenosis. C3-C4: There is a central protrusion. There is mild bilateral uncovertebral joint osteoarthritis. The re is moderate bilateral facet joint osteoarthritis. There is mild bilateral neural foraminal stenosi s. There is mild central canal stenosis. C4-C5: There is a central protrusion. There is mild bilateral uncovertebral joint osteoarthritis. The re is moderate bilateral facet joint osteoarthritis. There is mild right and moderate left neural for aminal stenosis. There is mild central canal stenosis. C5-C6: The disc is bulging. There is severe bilateral uncovertebral joint osteoarthritis. There is no facet joint osteoarthritis. There is mild bilateral neural foraminal stenosis. There is mild central canal stenosis. C6-C7: The disc is bulging. There is severe bilateral uncovertebral joint osteoarthritis. There is mo derate right and mild left facet joint osteoarthritis. There is mild bilateral neural foraminal steno sis. There is mild central canal stenosis. C7-T1: The disc does not extend beyond the endplate margin. There is mild left uncovertebral joint os teoarthritis. There is severe bilateral facet joint osteoarthritis. There is mild left neural foramin al stenosis. There is no central canal stenosis. IMPRESSION: 1. Moderate cervical spondylosis. Reviewed, dictated and finalized at location E.
--- NOTE | ~2023-08-05 | CT_ITS ---
EXAMINATION: CTA brain carotid DATE: 08/06/2023 02:23 INDICATION: gait abnormality TECHNIQUE: Computed tomographic angiography (CTA) of the head was performed without and with 100 mL O mnipaque-350 intravenous contrast. CTA of the neck was performed with intravenous contrast. Automated exposure control and iterative reconstruction technique were employed. The dose-length product was 1 720.92 mGy-cm. Maximum intensity projection and volume rendered 3D-reconstructions were created by e technologist on a separate workstation. COMPARISON: 09/28/2021; MR brain 03/17/2022. FINDINGS: CT BRAIN: No acute large vessel infarct, intracranial hemorrhage, mass, or hydrocephalus. Old left craniotomy. Left medial temporal encephalomalacia. Atherosclerotic intracranial calcification. Mild atrophy and c hronic white matter change. CTA HEAD: No large vessel occlusion, aneurysm, high flow vascular malformation, nidus or extravasation. CTA NECK: Aortic arch and proximal great vessels: Bovine arch anatomy. Mild arch calcification. Right common carotid, carotid bifurcation, and internal carotid artery: Significant calcified plaque at the bifurcation.There is 68% stenosis of the proximal right internal carotid artery relative to no rmal distal artery lumen diameter (NASCET criteria). Left common carotid, carotid bifurcation, and internal carotid artery: Minimal calcified plaque at th e bifurcation.There is 0% stenosis of the proximal left internal carotid artery relative to normal di stal artery lumen diameter (NASCET criteria). Vertebral arteries: No significant plaque or stenosis. Other findings: Dental implants. Degenerative changes in the cervical spine. Status post right thyroi dectomy. Mild biapical pleural scarring.. IMPRESSION: No acute intracranial process. No large vessel intracranial occlusion, high-grade intracranial stenosis, or aneurysm. No carotid or vertebral artery occlusion, dissection, or significant stenosis. Reviewed, dictated and finalized at location K. IMPRESSION: No acute intracranial process. No large vessel intracranial occlusion, high-grade intracranial stenosis, or an eurysm. No carotid or vertebral artery occlusion, dissection, or significant stenosis.
--- NOTE | ~2023-08-05 | MR_ITS ---
EXAMINATION: MR brain/brain stem wo/w con DATE: 08/07/2023 13:40 INDICATION: Gait instability. TECHNIQUE: Magnetic resonance imaging (MRI) of the brain and brainstem was performed without and with 18 mL MultiHance intravenous contrast. COMPARISON: Head CT 08/06/2023, brain MRI 03/17/2022 FINDINGS: There is chronic encephalomalacia in left temporal lobe. There are changes of left-sided cr aniotomy. There are scattered areas of nonspecific increased T2-weighted signal intensity in the cere bral white matter, which is within normal limits for the patient's age. There is no intracranial hemo rrhage, acute infarction, or abnormal intracranial mass lesion. The ventricles are normal in size. Th e paranasal sinuses are clear. The orbits are normal. The mastoid air cells are normal. IMPRESSION: 1. Chronic encephalomalacia in left temporal lobe. Reviewed, dictated and finalized at location E.
--- NOTE | ~2023-08-05 | MR_ITS ---
EXAMINATION: MR lumbar spine wo/w con DATE: 08/07/2023 13:41 INDICATION: Gait instability. Leg weakness and tingling. TECHNIQUE: Magnetic resonance imaging (MRI) of the lumbar spine was performed without and with 18 mL MultiHance intravenous contrast. COMPARISON: None FINDINGS: There is 15 degrees levoscoliosis of thoracolumbar spine. There is mild chronic anterior we dging of L1 vertebral body. Intervertebral disc heights are normal. The distal spinal cord signal int ensity is normal. The conus medullaris is at L1-L2. The following disc levels are specifically discus sed: L1-L2: There is a right central protrusion. There is mild bilateral facet joint osteoarthritis. There is no neural foraminal stenosis. There is mild central canal stenosis. L2-L3: The disc is bulging and has an annular fissure. There is mild bilateral facet joint osteoarthr itis. There is mild bilateral neural foraminal stenosis. There is mild central canal stenosis. L3-L4: The disc is bulging. There is severe bilateral facet joint osteoarthritis. There is mild bilat eral neural foraminal stenosis. There is mild central canal stenosis. L4-L5: The disc is bulging and has an annular fissure. There is mild left facet joint osteoarthritis. There is mild bilateral neural foraminal stenosis. There is mild central canal stenosis. L5-S1: The disc does not extend beyond the endplate margin. There is mild right and severe left facet joint osteoarthritis. There is mild left neural foraminal stenosis. There is no central canal stenos is. IMPRESSION: 1. Mild lumbar spondylosis. 2. Thoracolumbar levoscoliosis. Reviewed, dictated and finalized at location E.
[2023-08-05 21:31] VITALS: BP 139/78; PULSE 99; RESP 20; TEMP 35.9; O2SAT 98
[2023-08-06] VITALS (8 sets, daily range): BP systolic 118–143; BP diastolic 69–83; PULSE 78–128; RESP 12–20; TEMP 36.4–37.1; O2SAT 94–99; BMI 31.5
[2023-08-06 01:59] LABS: Basophils Absolute Auto 0.1 K/mm3 (0.0-0.1); Basophils Percent Auto 0.8 % (0.2-1.2); Eosinophils Absolute Auto 0.2 K/mm3 (0-0.3); Eosinophils Percent Auto 1.4 % (0-4.4); Hematocrit 39.2 % (37.0-47.0); Hemoglobin 12.6 g/dL (12.0-15.0); Immature Granulocyte Absolute 0.02 K/mm3 (0.00-0.031); Immature Granulocyte Percent A 0.2 % (0-0.5); Lymphocytes Absolute Auto 4.11 K/mm3 (0.9-3.2); Lymphocytes Percent Auto 39.6 % (18.3-44.2); Mean Corpuscular HGB Conc 32.1 g/dl (32-36); Mean Corpuscular Hemoglobin 29.3 pg (26-34); Mean Corpuscular Volume 91.2 fl (80-100); Mean Platelet Volume 9.6 fl (7.4-10.4); Monocytes Absolute Auto 1.2 K/mm3 (0.1-0.6); Monocytes Percent Auto 11.2 % (2.6-8.5); Neutrophils Absolute Auto 4.9 K/mm3 (1.3-6.7); Neutrophils Percent Auto 46.8 % (45.5-73.1); Platelet Count Result 364 k/mm3 (150-375); White Blood Count 10.4 K/mm3 (4.5-10.0)
[2023-08-06 02:09] LABS: Anion Gap 5 mmol/L (4-12); Blood Urea Nitrogen 18 mg/dL (7-17); Calcium 9.9 mg/dL (8.4-10.2); Carbon Dioxide 26 mmol/L (22-30); Chloride 106 mmol/L (98-107); Estimated CRCL calculation 73 ml/min; Estimated Glomerular Filt Rate > 60; Glucose 99 mg/dL (65-110); Potassium 3.9 mmol/L (3.4-5.0); Sodium 137 mmol/L (137-145)
[2023-08-06 02:18] LABS: Estimated CRCL calculation 65 ml/min; Estimated Glomerular Filt Rate > 60
--- NOTE | 2023-08-06 02:18 | PC.NURSE ---
Pt refused medications at this time. Pt requested to take them closer to 0700. EDP made aware, medications will be administered at 0700.
--- NOTE | 2023-08-06 02:49 | ED.GENADULT ---
HPI - General Adult General Chief complaint: Recheck/Abnormal Lab/Rx Stated complaint: check levels for seizures, feeling weak in knees Time Seen by Provider: 08/06/23 00:37 History of Present Illness HPI narrative: Patient here due to difficulty walking worse over last few days, she feels drunk (and does not drink) and per , stumbled earlier today and normally she is a fast walker. She says about a week ago she may have actually taken an extra dose of lamotrigine and she thinks that is why she has been feeling very tired and out of sorts she does report some tingling to her legs but she thinks this is from a concussion in the past. says that she been more stressed than usual because their daughter is moving out of state for a job. Takes lamotrigine for seizures. No nausea/vomiting or vertigo. Related Data Home Medications Medication Instructions Recorded Confirmed cholecalciferol (vitamin D3) 50 2,000 unit PO DAILY 05/04/19 04/30/23 mcg (2,000 unit) capsule lamotrigine 100 mg tablet 200 mg PO BID 05/04/19 04/30/23 levothyroxine 25 mcg tablet 25 mcg PO DAILY 05/04/19 04/30/23 xvtckiwe-tzs-lfjlj acid 0.4 1 tablet PO DAILY 05/04/19 04/30/23 mg-lycopene 300 mcg-lutein 250 mcg tablet (Centrum Silver) raloxifene 60 mg tablet 60 mg PO DAILY 05/04/19 04/30/23 cyclosporine 0.05 % eye drops in a 1 drp EACH EYE BID 02/02/22 04/30/23 dropperette (Restasis) Allergies Allergy/AdvReac Type Severity Reaction Status Date / Time No Known Allergies Allergy Verified 08/05/23 21:36 Review of Systems Review of Systems: All systems reviewed & are unremarkable except as noted in HPI and below PMFSH Past Medical History Medical History Anxiety Blepharitis Chronic GERD Closed fracture of capitellum of left humerus Constipation COPD (chronic obstructive pulmonary disease) Endometriosis Epilepsy Hypothyroidism Osteopenia Postmenopausal HRT (hormone replacement therapy) Pulmonary nodule Skin tag 09/12/17 removal from lt breast Surgical History Surgical History History of craniotomy L temporal History of elective section times one--twins History of exploratory laparotomy x 4 History of hysterectomy 1994 MIKE/BSO History of partial thyroidectomy S/P breast biopsy, left (09/12/18) Benign Family History Family History Father Recurrent strokes Hypertension Cerebrovascular accident Alzheimer disease Mother Acute eosinophilic leukemia Thyroid disease Anxiety Other Breast cancer maternal aunts x2 Other Heart disease Social History Social History Social History: the patient lives at home with her . He is a durable power attorney lawyer for healthcare. She has 3 children. She has 1 daughter and is at a twin boys. 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 Patient used to smoke she quit smoking about 15 years ago. She smoked for 27 years. She is not use any marijuana or illicit drugs no alcohol. She desires to be a full code. 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
--- NOTE | 2023-08-06 03:59 | ADMGEN ---
This patient, Mary Weinberg, was admitted to Medical Room 247-. Patient/family oriented to hospital policies and general routines including ID bracelet, bed and alarms, visiting hours, pain management, procedures, bathroom and other care routines, personal items, smoking policy, room service/diet, and visiting hours. Information on how to activate the Rapid Response Team has been discussed. Patient/Family are encouraged to report perceived risks to care and to ask questions if they do not understand what they are told or what they should do.
[2023-08-06] MEDS: LEVOTHYROXINE SODIUM 25 MCG TABLET PO (04:30)
[2023-08-06] MEDS: lamoTRIgine 100 MG TABLET 200 MG PO ×2 (06:56→20:21)
--- NOTE | 2023-08-06 07:29 | PM.IMHP ---
H&P: HPI History of Present Illness Date/Time: 08/06/23 07:29 Chief Complaint: gait instability Narrative: Notes from ER reviewed. Patient here due to difficulty walking that got worse over last few days. She was seen per her PCP for lt ear fullness and was given antibiotics and hydrogen peroxide drop with little improvement. She feels drunk (and does not drink) and per , stumbled earlier today and normally she is a fast walker. She says about a week ago she may have actually taken an extra dose of lamotrigine and she thinks that is why she has been feeling very tired and out of sorts she does report some tingling to her legs but she thinks this is from a concussion in the past.? Takes lamotrigine for seizures. No nausea/vomiting or vertigo. She had been having tremors to both hands. She was admitted for MRI and to rule out possible GBS or other concerning issues- [facility] Past Medical History Medical History Anxiety Blepharitis Chronic GERD Closed fracture of capitellum of left humerus Constipation COPD (chronic obstructive pulmonary disease) Endometriosis Epilepsy Hypothyroidism Osteopenia Postmenopausal HRT (hormone replacement therapy) Pulmonary nodule Skin tag 09/12/17 removal from lt breast Surgical History Surgical History History of craniotomy L temporal History of elective section times one--twins History of exploratory laparotomy x 4 History of hysterectomy 1994 MIKE/BSO History of partial thyroidectomy S/P breast biopsy, left (09/12/18) Benign Family History Family History Father Recurrent strokes Hypertension Cerebrovascular accident Alzheimer disease Mother Acute eosinophilic leukemia Thyroid disease Anxiety Other Breast cancer maternal aunts x2 Other Heart disease Social History Social History Social History: the patient lives at home with her . He is a durable power environmental attorney for healthcare. She has 3 children. She has 1 daughter and is at a twin boys. 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 Patient used to smoke she quit smoking about 15 years ago. She smoked for 27 years. She is not use any marijuana or illicit drugs no alcohol. She desires to be a full code. Smoking packs per day: 1 Smoking cigarettes per day: 20.0 Years smoked: 25 Smoking pack-years: 25.00 Smoking status: Former smoker Tobacco type: cigarettes Second hand tobacco smoke exposure: No Smoking end date: 03/28/04 Alcohol intake: never Alcohol use details: occasionally Substance use: never Substance use type: does not use Do You Feel Safe in your Home?: Yes Lack of Transportation: No Lack of Food: Never True Current Housing: I Have Housing Concerned About Future Housing: No Difficulty Paying Gas/Electric Bills: No Difficulty Paying for Meds: No Currently Unemployed: No Education: Associate Degree Difficulty w/ Childcare or Family Care: No Living arrangements: with family Additional living arrangements comments: spouse Occupation/Education: occupation 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
--- NOTE | 2023-08-06 12:09 | WPDNEURCNPN ---
Consult date: 08/06/23 HPI: Mary Weinberg is a 63 year old female admitted to the hospital through the ER for the complaints of pressure in her left ear decreased hearing and feeling of balance in addition to the pressure behind her left eye of 4 days duration patient was initially seen by the primary care physician received the antibiotics and hydrogen peroxide but she did not report any significant improvement though denied tinnitus nausea vomiting or fever. Her medication otherwise included lamotrigine 200mg twice a day, levothyroxine 25mg mcg daily, Relafen X seen 60mg daily, in addition to Cyclosporin eyedrops, she is not allergic to any medication, does have ongoing history of anxiety, epilepsy, hypothyroidism, and also has undergone craniotomy in the past in addition to other surgeries she has smoked for 25 years but former smoker does not drink alcohol and also complained of difficulties in walking with stumbling as per the attributed to the XR dose of lamotrigine, initial vital signs were normal, was admitted to the hospital for the gait instability, lamotrigine levels are pending so as the MRI of the brain and CTA [facility] Past Medical History Medical History Anxiety Blepharitis Chronic GERD Closed fracture of capitellum of left humerus Constipation COPD (chronic obstructive pulmonary disease) Endometriosis Epilepsy Hypothyroidism Osteopenia Postmenopausal HRT (hormone replacement therapy) Pulmonary nodule Skin tag 09/12/17 removal from lt breast Surgical History Surgical History History of craniotomy L temporal History of elective section times one--twins History of exploratory laparotomy x 4 History of hysterectomy 1994 MIKE/BSO History of partial thyroidectomy S/P breast biopsy, left (09/12/18) Benign Family History Family History Father Recurrent strokes Hypertension Cerebrovascular accident Alzheimer disease Mother Acute eosinophilic leukemia Thyroid disease Anxiety Other Breast cancer maternal aunts x2 Other Heart disease Social History Social History Social History: the patient lives at home with her . He is a durable power traffic law attorney for healthcare. She has 3 children. She has 1 daughter and is at a twin boys. 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 Patient used to smoke she quit smoking about 15 years ago. She smoked for 27 years. She is not use any marijuana or illicit drugs no alcohol. She desires to be a full code. Smoking packs per day: 1 Smoking cigarettes per day: 20.0 Years smoked: 25 Smoking pack-years: 25.00 Smoking status: Former smoker Tobacco type: cigarettes Second hand tobacco smoke exposure: No Smoking end date: 03/28/04 Alcohol intake: never Alcohol use details: occasionally Substance use: never Substance use type: does not use Do You Feel Safe in your Home?: Yes Lack of Transportation: No Lack of Food: Never True Current Housing: I Have Housing Concerned About Future Housing: No Difficulty Paying Gas/Electric Bills: No Difficulty Paying for Meds: No Currently Unemployed: No Education: Associate Degree Difficulty w/ Childcare or Family Care: No Living arrangements: with family Additional living arrangements comments: spouse Occupation/Education: occupation 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
[2023-08-06] MEDS: CHOLECALCIFEROL 1,000 UNITS TABLET 2000 UNITS PO (12:50)
[2023-08-06] MEDS: amLODIPine BESYLATE 5 MG TABLET BY MOUTH (12:50)
[2023-08-06] MEDS: RALOXIFENE HCL (*CHEMO) 60 MG TABLET PO (12:51)
[2023-08-06] MEDS: ATORVASTATIN 20 MG TABLET PO (12:51)
[2023-08-06] MEDS: ASPIRIN 81 MG ENTERIC TABLET PO (12:51)
[2023-08-06] MEDS: MULTIVITAMINS /C LUTEIN (CENTRUM SILVER) TABLET *BKC 1 TAB PO (12:51)
[2023-08-06] MEDS: cycloSPORINE 0.4 ML OPHTH SOLUTION 1 DROP EACH EYE ×2 (12:52→20:21)
[2023-08-07] VITALS (8 sets, daily range): BP systolic 120–141; BP diastolic 67–69; PULSE 74–102; RESP 16–18; TEMP 36.1–36.8; O2SAT 96–98
[2023-08-07] MEDS: LEVOTHYROXINE SODIUM 25 MCG TABLET PO (06:19)
--- NOTE | 2023-08-07 07:29 | PM.IMPN ---
Progress Note: A&P Assessment and Plan (1) Gait instability: Code(s): R26.81 - Unsteadiness on feet Status: Acute Assessment and Plan: -MRI ordered already- brain, thorasic spine, c spine, lumbar -CTA brain carotid done 08/05- WNL: No acute intracranial process. No large vessel intracranial occlusion, high-grade intracranial stenosis, or aneurysm. No carotid or vertebral artery occlusion, dissection, or significant stenosis. - neuro following - neuro check, tele -PT/OT eval completed- signed off (2) Chronic GERD: Code(s): K21.9 - Gastro-esophageal reflux disease without esophagitis Status: Chronic Assessment and Plan: pantoprazole-continue (3) COPD (chronic obstructive pulmonary disease): Code(s): J44.9 - Chronic obstructive pulmonary disease, unspecified Status: Acute Assessment and Plan: # copd - anoro ellipta, albuterol - continue (4) Epilepsy: Code(s): G40.909 - Epilepsy, unspecified, not intractable, without status epilepticus Status: Acute Assessment and Plan: # epilepsy - on lamotrigine 200 mg bid- pending - last epileptic episode was in February 2023 (5) Hypothyroidism: Code(s): E03.9 - Hypothyroidism, unspecified Status: Acute Assessment and Plan: # hypothyroidism - continue home levothyroxine 25 mcg (6) HTN (hypertension): Code(s): I10 - Essential (primary) hypertension Status: Acute Assessment and Plan: # htn - amlodipine-continue (7) Elevated liver enzymes: Code(s): R74.8 - Abnormal levels of other serum enzymes Status: Acute Assessment and Plan: -monitor Plan GI prophilaxis: na DVT prophylaxis: SCD Lines: peripheral IV Code status: full Subjective Date/time seen: 08/07/23 07:29 Interval history: examined today. PT/OT seen her- no acute issues- signed off. CTA completed, waiting for MRI. Lamotrigine level pending she voices no complains today. Exam Const: General: comfortable Resp: Effort & Inspection: normal respiratory effort Cardio: Rate: regular rate Rhythm: regular rhythm Extrem: General: normal to inspection Psych: Mental Status: mental status grossly normal Objective Data Vital Signs Vital Signs: Vital Signs - 24 hr 08/06/23 10:05 08/06/23 08:00 08/06/23 08:00 Temperature Pulse Rate 87 Respiratory Rate Blood Pressure Pulse Oximetry Oxygen Delivery Room Air Room Air 08/06/23 15:23 08/06/23 12:00 08/06/23 16:00 Temperature 97.5 F L Pulse Rate 89 86 103 H Respiratory Rate 12 Blood Pressure 134/69 Pulse Oximetry 99 Oxygen Delivery 08/06/23 19:25 08/06/23 19:49 08/06/23 20:00 Temperature 97.9 F Pulse Rate 107 H 128 H Respiratory Rate 18 Blood Pressure 118/69 Pulse Oximetry 96 Oxygen Delivery Room Air 08/07/23 00:00 08/07/23 04:00 08/07/23 05:39 Temperature 98.3 F Pulse Rate 94 82 90 Respiratory Rate 18 Blood Pressure 141/68 H Pulse Oximetry 98 Oxygen Delivery Intake/Output Intake/Output: Intake & Output 08/04/23 08/05/23 08/06/23 08/07/23 23:59 23:59 23:59 23:59 Intake Total 220 Output Total 1001 1 Balance -781 -1 Meds/Results Medications: Active Medications Generic Name Dose Route Start Last Admin Trade Name Freq PRN Reason Stop Dose Admin Albuterol 1 puff 08/06/23 12:21 Albuterol Sulfate (*Sp) Aerosol 1 Puff INHALATION Q4HRT PRN shortness of breath or wheezing Amlodipine Besylate 5 mg 08/06/23 12:25 08/06/23 12:50 Amlodipine Besylate 5 Mg Tablet BY MOUTH 5 mg QAM KEVIN Administration Aspirin 81 mg 08/06/23 12:25 08/06/23 12:51 Aspirin 81 Mg Enteric Tablet PO 81 mg DAILY KEVIN Administration Atorvastatin Calcium 20 mg 08/06/23 12:25 08/06/23 12:51 Atorvastatin 20 Mg Tablet PO 20 mg DAILY KEVIN Administration Cyclosporine 1 drop 08/06/23 12:25 08/06/23 20:21 Cyclosporin
[2023-08-07] MEDS: ACETAMINOPHEN 325 MG TABLET 650 MG PO ×2 (09:53→16:30)
[2023-08-07] MEDS: RALOXIFENE HCL (*CHEMO) 60 MG TABLET PO (10:02)
[2023-08-07] MEDS: ATORVASTATIN 20 MG TABLET PO (10:03)
[2023-08-07] MEDS: PANTOPRAZOLE 40 MG TABLET PO ×2 (10:03→21:29)
[2023-08-07] MEDS: ASPIRIN 81 MG ENTERIC TABLET PO (10:03)
[2023-08-07] MEDS: amLODIPine BESYLATE 5 MG TABLET BY MOUTH (10:03)
[2023-08-07] MEDS: CHOLECALCIFEROL 1,000 UNITS TABLET 2000 UNITS PO (10:04)
[2023-08-07] MEDS: cycloSPORINE 0.4 ML OPHTH SOLUTION 1 DROP EACH EYE ×2 (10:04→21:29)
[2023-08-07] MEDS: MULTIVITAMINS /C LUTEIN (CENTRUM SILVER) TABLET *BKC 1 TAB PO (10:05)
[2023-08-07] MEDS: lamoTRIgine 100 MG TABLET 200 MG PO ×2 (10:07→21:29)
--- NOTE | 2023-08-07 12:53 | WPDNEUROPN ---
Subjective Date/time seen: 08/07/23 12:53 Interval history: Gait instability in addition to the ongoing history of seizure disorder investigation revealed normal CBC, normal BMP, lamotrigine levels pending, head and neck CTA negative for the aneurysm or vascular intracranial or extracranial disease, and MRI reports are pending examination remains unchanged. Objective Data Vital Signs Vital Signs: Vital Signs - 24 hr 08/06/23 15:23 08/06/23 16:00 08/06/23 19:25 Temperature 36.4 C L Pulse Rate 89 103 H Respiratory Rate 12 Blood Pressure 134/69 Pulse Oximetry 99 Oxygen Delivery Room Air 08/06/23 19:49 08/06/23 20:00 08/07/23 00:00 Temperature 36.6 C Pulse Rate 107 H 128 H 94 Respiratory Rate 18 Blood Pressure 118/69 Pulse Oximetry 96 Oxygen Delivery 08/07/23 04:00 08/07/23 05:39 08/07/23 08:00 Temperature 36.8 C Pulse Rate 82 90 74 Respiratory Rate 18 Blood Pressure 141/68 H Pulse Oximetry 98 Oxygen Delivery Intake/Output Intake/Output: Intake & Output 08/04/23 08/05/23 08/06/23 08/07/23 23:59 23:59 23:59 23:59 Intake Total 220 240 Output Total 1001 1 Balance -781 239 Meds/Results Medications: Active Medications Generic Name Dose Route Start Last Admin Trade Name Freq PRN Reason Stop Dose Admin Acetaminophen 650 mg 08/07/23 09:27 08/07/23 09:53 Acetaminophen 325 Mg Tablet PO 650 mg Q4H PRN Administration Headache Albuterol 1 puff 08/06/23 12:21 Albuterol Sulfate (*Sp) Aerosol 1 Puff INHALATION Q4HRT PRN shortness of breath or wheezing Amlodipine Besylate 5 mg 08/06/23 12:25 08/07/23 10:03 Amlodipine Besylate 5 Mg Tablet BY MOUTH 5 mg QAM KEVIN Administration Aspirin 81 mg 08/06/23 12:25 08/07/23 10:03 Aspirin 81 Mg Enteric Tablet PO 81 mg DAILY KEVIN Administration Atorvastatin Calcium 20 mg 08/06/23 12:25 08/07/23 10:03 Atorvastatin 20 Mg Tablet PO 20 mg DAILY KEVIN Administration Cyclosporine 1 drop 08/06/23 12:25 08/07/23 10:04 Cyclosporine 0.4 Ml Ophth Solution EACH EYE 1 drop Q12HR KEVIN Administration Lamotrigine 200 mg 08/06/23 12:25 08/07/23 10:07 Lamotrigine 100 Mg Tablet PO 200 mg Q12HR KEVIN Administration Levothyroxine Sodium 25 mcg 08/07/23 06:30 08/07/23 06:19 Levothyroxine Sodium 25 Mcg Tablet PO 25 mcg DAILY@0630 KEVIN Administration Multivitamins/Minerals 1 tab 08/06/23 12:25 08/07/23 10:05 Multivitamins /C Lutein (Centrum Silver) Tablet *Bkc PO 1 tab DAILY KEVIN Administration Pantoprazole Sodium 40 mg 08/07/23 09:00 08/07/23 10:03 Pantoprazole 40 Mg Tablet PO 40 mg Q12HR KEVIN Administration Raloxifene HCl 60 mg 08/06/23 12:25 08/07/23 10:02 Raloxifene Hcl (*Chemo) 60 Mg Tablet PO 60 mg DAILY KEVIN Administration Vitamin D 2,000 units 08/06/23 12:25 08/07/23 10:04 Cholecalciferol 1,000 Units Tablet PO 2,000 units DAILY KEVIN Administration Radiology Results: ITS Impressions Head/Neck CTA 08/06/23 15:13 IMPRESSION: No acute intracranial process. No large vessel intracranial occlusion, high-grade intracranial stenosis, or aneurysm. No carotid or vertebral artery occlusion, dissection, or significant stenosis.
[2023-08-08 04:52] VITALS: BP 121/65; PULSE 84; RESP 18; TEMP 36.9; O2SAT 95
[2023-08-08] MEDS: LEVOTHYROXINE SODIUM 25 MCG TABLET PO (05:57)
--- NOTE | 2023-08-08 07:54 | PM.IMPN ---
Progress Note: A&P Assessment and Plan (1) Gait instability: Code(s): R26.81 - Unsteadiness on feet Status: Acute Assessment and Plan: -MRI brain-Chronic encephalomalacia in left temporal lobe. -MRI C spine- Moderate cervical spondylosis. -MRI L spine- ?Mild lumbar spondylosis. 2. Thoracolumbar levoscoliosis -MRI Thorasic s spine- Moderate right neural foraminal stenosis at T1-T2. Otherwise mild thoracic spondylosis. -CTA brain carotid done 08/05- WNL: No acute intracranial process. No large vessel intracranial occlusion, high-grade intracranial stenosis, or aneurysm. No carotid or vertebral artery occlusion, dissection, or significant stenosis. - neuro following - neuro check, tele -PT/OT eval completed- signed off (2) Chronic GERD: Code(s): K21.9 - Gastro-esophageal reflux disease without esophagitis Status: Chronic Assessment and Plan: pantoprazole-continue (3) COPD (chronic obstructive pulmonary disease): Code(s): J44.9 - Chronic obstructive pulmonary disease, unspecified Status: Acute Assessment and Plan: # copd - anoro ellipta, albuterol - continue (4) Epilepsy: Code(s): G40.909 - Epilepsy, unspecified, not intractable, without status epilepticus Status: Acute Assessment and Plan: # epilepsy - on lamotrigine 200 mg bid- pending - last epileptic episode was in February 2023 (5) Hypothyroidism: Code(s): E03.9 - Hypothyroidism, unspecified Status: Acute Assessment and Plan: # hypothyroidism - continue home levothyroxine 25 mcg (6) HTN (hypertension): Code(s): I10 - Essential (primary) hypertension Status: Acute Assessment and Plan: # htn - amlodipine-continue (7) Elevated liver enzymes: Code(s): R74.8 - Abnormal levels of other serum enzymes Status: Acute Assessment and Plan: -monitor Plan GI prophilaxis: na DVT prophylaxis: SCD 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 -MRI C spine- Moderate cervical spondylosis. -MRI L spine- ?Mild lumbar spondylosis. 2. Thoracolumbar levoscoliosis -MRI Thorasic s spine- Moderate right neural foraminal stenosis at T1-T2. Otherwise mild thoracic spondylosis. 08/07- pt is seen and examined today. Uneventful night, alert, oriented, no new neuro finding. Awaiting neurology review for diagnostic results and further recommendations Exam Const: General: comfortable Resp: Effort & Inspection: normal respiratory effort Cardio: Rate: regular rate Rhythm: regular rhythm Extrem: General: normal to inspection Psych: Mental Status: mental status grossly normal Objective Data Vital Signs Vital Signs: Vital Signs - 24 hr 08/07/23 08:00 08/07/23 13:38 08/07/23 16:00 Temperature 96.9 F L Pulse Rate 74 102 H 88 Respiratory Rate 16 Blood Pressure 120/69 Pulse Oximetry 96 Oxygen Delivery 08/07/23 22:00 08/07/23 20:00 08/07/23 21:30 Temperature 97.6 F Pulse Rate 80 89 Respiratory Rate 16 Blood Pressure 134/67 Pulse Oximetry 96 Oxygen Delivery Room Air 08/08/23 04:52 Temperature 98.5 F Pulse Rate 84 Respiratory Rate 18 Blood Pressure 121/65 Pulse Oximetry 95 Oxygen Delivery Intake/Output Intake/Output: Intake & Output 08/05/23 08/06/23 08/07/23 08/08/23 23:59 23:59 23:59 23:59 Intake Total 220 2120 200 Output Total 1001 301 Balance -781 1819 200 Meds/Results Medications: Active Medications Generic Name Dose Route Start Last Adm
[2023-08-08 08:46] VITALS: BP 115/60; PULSE 95; O2SAT 97
[2023-08-08] MEDS: MULTIVITAMINS /C LUTEIN (CENTRUM SILVER) TABLET *BKC 1 TAB PO (08:48)
[2023-08-08] MEDS: PANTOPRAZOLE 40 MG TABLET PO (08:49)
[2023-08-08] MEDS: CHOLECALCIFEROL 1,000 UNITS TABLET 2000 UNITS PO (08:49)
[2023-08-08] MEDS: ASPIRIN 81 MG ENTERIC TABLET PO (08:49)
[2023-08-08] MEDS: amLODIPine BESYLATE 5 MG TABLET BY MOUTH (08:49)
[2023-08-08] MEDS: ATORVASTATIN 20 MG TABLET PO (08:49)
[2023-08-08] MEDS: cycloSPORINE 0.4 ML OPHTH SOLUTION 1 DROP EACH EYE (08:50)
[2023-08-08] MEDS: RALOXIFENE HCL (*CHEMO) 60 MG TABLET PO (08:50)
[2023-08-08] MEDS: lamoTRIgine 100 MG TABLET 200 MG PO (08:50)
--- NOTE | 2023-08-08 12:26 | PM.DS ---
DS: Admitting Diagnosis Discharge Date 08/08/23 Admitting Diagnosis gait instability DS: Discharge Diagnosis Discharge Diagnosis (1) Gait instability: Code(s): R26.81 - Unsteadiness on feet Status: Acute Assessment and Plan: -MRI brain-Chronic encephalomalacia in left temporal lobe. -MRI C spine- Moderate cervical spondylosis. -MRI L spine- ?Mild lumbar spondylosis. 2. Thoracolumbar levoscoliosis -MRI Thorasic s spine- Moderate right neural foraminal stenosis at T1-T2. Otherwise mild thoracic spondylosis. -CTA brain carotid done 08/05- WNL: No acute intracranial process. No large vessel intracranial occlusion, high-grade intracranial stenosis, or aneurysm. No carotid or vertebral artery occlusion, dissection, or significant stenosis. - neuro following- ok to discharge pt and outpt follow up with neurology - neuro check, tele -PT/OT eval completed- signed off (2) Chronic GERD: Code(s): K21.9 - Gastro-esophageal reflux disease without esophagitis Status: Chronic Assessment and Plan: pantoprazole-continue (3) COPD (chronic obstructive pulmonary disease): Code(s): J44.9 - Chronic obstructive pulmonary disease, unspecified Status: Acute Assessment and Plan: # copd - anoro ellipta, albuterol - continue (4) Epilepsy: Code(s): G40.909 - Epilepsy, unspecified, not intractable, without status epilepticus Status: Acute Assessment and Plan: # epilepsy - on lamotrigine 200 mg bid- pending - last epileptic episode was in February 2023 (5) Hypothyroidism: Code(s): E03.9 - Hypothyroidism, unspecified Status: Acute Assessment and Plan: # hypothyroidism - continue home levothyroxine 25 mcg (6) HTN (hypertension): Code(s): I10 - Essential (primary) hypertension Status: Acute Assessment and Plan: # htn - amlodipine-continue (7) Elevated liver enzymes: Code(s): R74.8 - Abnormal levels of other serum enzymes Status: Acute Assessment and Plan: -monitor Plan GI prophilaxis: na DVT prophylaxis: SCD Lines: peripheral IV Code status: full DS: Summary Hospital Course Hospital Course: Gait instability in addition to the ongoing history of seizure disorder investigation revealed normal CBC, normal BMP, lamotrigine levels pending, head and neck CTA negative for the aneurysm or vascular intracranial or extracranial disease, and MRI completed 08/06 -MRI brain-Chronic encephalomalacia in left temporal lobe. -MRI C spine- Moderate cervical spondylosis. -MRI L spine- ?Mild lumbar spondylosis. 2. Thoracolumbar levoscoliosis -MRI Thorasic s spine- Moderate right neural foraminal stenosis at T1-T2. Otherwise mild thoracic spondylosis. 08/07- pt is seen and examined today. ? Uneventful night, alert, oriented, no new neuro finding. Ok to discharge per neurology as stable and no new neurological complains Status at Discharge Functional status at discharge: independent ambulation Overall status at discharge: patient is back to baseline Time Spent with Patient Time attestation: Total time spent providing and/or coordinating discharge services: Time spent: Less than 30 minutes Exam Const: General: comfortable Resp: Effort & Inspection: normal respiratory effort Cardio: Rate: regular rate Rhythm: regular rhythm Skin: General skin exam: normal color Neuro: General: gait normal Motor exam (neuro): 5/5 motor strength present throughout Extrem: General: normal to inspection Psych: Mental Status: mental status grossly normal DS: Data Data Completed and Pending Completed studies during hospitalization: head and neck CTA negative for the aneurysm or vascular intracranial or extracranial disease, and MRI completed 08/06 -MRI brain-Chronic encephalomalacia in left temporal lobe. -MRI C spine- Moderate cervical spondylosis. -MRI L spine- ?Mild lumbar spondylosis. 2. Thoracolumbar levoscoliosis -MRI Thorasic
== END 2023-08-08 13:25 | disposition home or self-care (01) ==
LOC: ANHED 08-06 02:57 → ANH2MED 08-06 03:21
PROVIDERS: Admitting Provider Internal Medicine; Emergency Provider Emergency Medicine; PCP Family Medicine; Visit Provider Internal Medicine
DX: R26.81 Unsteadiness on feet (principal); R74.8 Abnormal levels of other serum enzymes; G40.909 Epilepsy, unspecified, not intractable, without status epilepticus; J44.9 Chronic obstructive pulmonary disease, unspecified; E03.9 Hypothyroidism, unspecified; K21.9 Gastro-esophageal reflux disease without esophagitis; F41.9 Anxiety disorder, unspecified; Z87.891 Personal history of nicotine dependence; Z79.82 Long term (current) use of aspirin; Z79.51 Long term (current) use of inhaled steroids
CPT/HCPCS: 36415; 70496; 70498; 70553; 72156; 72157; 72158; 80048; 85025; 97161; 97165; 99285; A9270; A9577; G0378; Q9967

== ENCOUNTER 2023-08-21 12:51 | Emergency (ER) | payer OTHER, MEDICARE, SELFPAY ==
[2023-08-21 13:01] VITALS: BP 99/55; PULSE 108; RESP 16; TEMP 36.2; O2SAT 97
--- NOTE | 2023-08-21 13:54 | ED.GENADULT ---
HPI - General Adult General Chief complaint: Upper Respiratory Infection Stated complaint: Cold Symptoms Time Seen by Provider: 08/21/23 13:54 Source: patient, RN notes reviewed and old records reviewed Mode of arrival: ambulatory Limitations: no limitations History of Present Illness HPI narrative: 63-year-old female to [facility] for complaint of bilateral ear pressure and discomfort, cough and hoarseness for 3 days. Patient endorses history cerumen impaction required removal by provider. Patient denies fever, shortness of breath, difficulty swallowing. Patient able to tolerate fluids by mouth. Respirations even and non labored. Patient in no acute distress. Related Data Home Medications Medication Instructions Recorded Confirmed cholecalciferol (vitamin D3) 50 2,000 unit PO DAILY 05/04/19 08/21/23 mcg (2,000 unit) capsule lamotrigine 100 mg tablet 200 mg PO BID 05/04/19 08/21/23 levothyroxine 25 mcg tablet 25 mcg PO DAILY 05/04/19 08/21/23 zvgbdibm-ynl-jdumm acid 0.4 1 tablet PO DAILY 05/04/19 08/21/23 mg-lycopene 300 mcg-lutein 250 mcg tablet (Centrum Silver) raloxifene 60 mg tablet 60 mg PO DAILY 05/04/19 08/21/23 cyclosporine 0.05 % eye drops in a 1 drp EACH EYE BID 02/02/22 08/21/23 dropperette (Restasis) Allergies Allergy/AdvReac Type Severity Reaction Status Date / Time No Known Allergies Allergy Verified 08/21/23 13:19 Review of Systems Review of Systems: All systems reviewed & are unremarkable except as noted in HPI and below Constitutional: Constitutional: Reports as per HPI and Denies fever(s) Eyes: Eyes: Reports no additional eye complaints ENT: Reports as per HPI, Reports otalgia ( Bilateral) and Reports hoarseness Cardiovascular: Cardiovascular: Reports no additional cardiovascular complaints, Denies chest pain and Denies dyspnea Respiratory: Respiratory: Reports no additional respiratory complaints, Reports cough and Denies dyspnea Musculoskeletal: Musculoskeletal: Reports no additional musculoskeletal complaints Neurologic: Reports system reviewed and no additional complaints, except as documented Psychiatric: Psychiatric: Reports no additional psychiatric complaints PMFSH Past Medical History Medical History Anxiety Blepharitis Chronic GERD Closed fracture of capitellum of left humerus Constipation COPD (chronic obstructive pulmonary disease) Endometriosis Epilepsy Hypothyroidism Osteopenia Postmenopausal HRT (hormone replacement therapy) Pulmonary nodule Skin tag 09/12/17 removal from lt breast Surgical History Surgical History History of craniotomy L temporal History of elective section times one--twins History of exploratory laparotomy x 4 History of hysterectomy 1994 MIKE/BSO History of partial thyroidectomy S/P breast biopsy, left (09/12/18) Benign Family History Family History Father Recurrent strokes Hypertension Cerebrovascular accident Alzheimer disease Mother Acute eosinophilic leukemia Thyroid disease Anxiety Other Breast cancer maternal aunts x2 Other Heart disease Social History Social History Social History: the patient lives at home with her . He is a durable power marketing writer for healthcare. She has 3 children. She has 1 daughter and is at a twin boys. 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 Patient used to smoke she quit smoking about 15 years ago. She smoked for 27 years. She is not use any marijuana or illicit drugs no alcohol. She desires to be a full code. Smoking packs per day: 1 Smoking cigarettes per day: 20.0 Years smoked: 25 Smoking pack-years: 25.00 Smoking status: Former smoker Tobacco type: ciga
== END 2023-08-21 14:45 | disposition home or self-care (01) ==
PROVIDERS: Emergency Provider Nurse Practitioner Family; PCP Family Medicine
DX: H61.23 Impacted cerumen, bilateral (principal); J40 Bronchitis, not specified as acute or chronic; Z87.891 Personal history of nicotine dependence; G40.909 Epilepsy, unspecified, not intractable, without status epilepticus; K21.9 Gastro-esophageal reflux disease without esophagitis; J44.9 Chronic obstructive pulmonary disease, unspecified; N80.9 Endometriosis, unspecified; E03.9 Hypothyroidism, unspecified; M85.80 Other specified disorders of bone density and structure, unspecified site; Z90.89 Acquired absence of other organs
CPT/HCPCS: 69210; 99213; G0463

== ENCOUNTER 2023-08-29 10:47 | Outpatient (CLI) | payer OTHER, MEDICARE, SELFPAY ==
--- NOTE | ~2023-08-29 | XR_ITS ---
Clinical Indication: Cough PA and lateral views of the chest: Comparison: 03/25/2021 Findings: The lungs are clear, without evidence of focal consolidation or pleural effusion. Cardiome diastinal silhouette is within normal limits. Bones and soft tissues are unremarkable. Impression: Clear lungs. Reviewed, dictated and finalized at location . Impression: Clear lungs.
== END 2023-08-29 10:48 | disposition home or self-care (01) ==
LOC: ANHIMG 10:50
PROVIDERS: PCP Family Medicine; Visit Provider Physician Assistant Medical
DX: J44.9 Chronic obstructive pulmonary disease, unspecified (principal); R05.9 Cough, unspecified
CPT/HCPCS: 71046

== ENCOUNTER 2023-10-21 08:27 | Outpatient (CLI) | payer OTHER, MEDICARE, SELFPAY ==
--- NOTE | ~2023-10-21 | MM_ITS ---
EXAMINATION: MM screening reed BI w schuyler HISTORY: Screening TECHNIQUE: Craniocaudal and mediolateral oblique 3-D tomosynthesis images were obtained and synthetic 2-D images were generated. CAD analysis was submitted and interpreted. COMPARISON: Comparison to multiple prior studies sequentially, with oldest reviewed study dated 09/15. BREAST PARENCHYMAL COMPOSITION: Not dense: There are scattered areas of fibroglandular density. FINDINGS: There is no evidence of suspicious mass, calcification, or architectural distortion to sugg est malignancy in either breast. There has been no suspicious interval change. IMPRESSION: 1. No mammographic evidence of malignancy. 2. Recommend routine screening mammography in one year. BI-RADS Category 1: Negative Reviewed, dictated and finalized at location B.
[2023-10-21 09:07] LABS: Hematocrit 39.7 % (37.0-47.0); Hemoglobin 12.5 g/dL (12.0-15.0); Mean Corpuscular HGB Conc 31.5 g/dl (32-36); Mean Corpuscular Hemoglobin 27.9 pg (26-34); Mean Corpuscular Volume 88.6 fl (80-100); Mean Platelet Volume 9.9 fl (7.4-10.4); Platelet Count Result 429 k/mm3 (150-375); Red Blood Count 4.48 M/mm3 (4.2-5.4); Red Cell Distribution Width 15.4 % (11.5-14.5); White Blood Count 7.4 K/mm3 (4.5-10.0)
[2023-10-21 09:11] LABS: Alanine Aminotransferase 33 U/L (6-35); Albumin Level 4.3 g/dL (3.5-5.1); Alkaline Phosphatase 106 U/L (38-126); Anion Gap 10 mmol/L (4-12); Aspartate Amino Transferase 41 U/L (14-36); Bilirubin,Total 0.4 mg/dL (0.2-1.3); Blood Urea Nitrogen 19 mg/dL (7-17); Calcium 9.2 mg/dL (8.4-10.2); Carbon Dioxide 24 mmol/L (22-30); Chloride 105 mmol/L (98-107); Cholesterol 171 mg/dL (0-200); Estimated Glomerular Filt Rate > 60; Glucose 99 mg/dL (65-110); HDL Direct 75 mg/dL; Potassium 3.9 mmol/L (3.4-5.0); Sodium 139 mmol/L (137-145); Triglycerides 129 mg/dL (<150)
[2023-10-21 09:22] LABS: LDL Cholesterol Direct 60 mg/dL
[2023-10-21 09:24] LABS: Appearance Urine Clear (Clear); Bacteria Urine None Seen /hpf; Bilirubin Urine Negative (Negative); Blood Urine Negative (Negative); Color Urine Yellow (Yellow); Glucose Urine UA Negative (Negative); Ketones Urine Negative (Negative); Leukocyte Esterase Ur 1+ LEU/UL (Negative); Need Manual Microscopic Reviewed; Nitrate Urine Negative (Negative); Protein Urine Negative (Negative); RBC Urine 0-2 /hpf (0-2); Specific Grav Ur 1.015 (1.001-1.035); Squamous Epithelial Cell Urine Occasional /hpf (Few); Urobilinogen Urine 0.2 mg/dL (<2.0); WBC Urine 0-5 /hpf (0-3); pH Urine 6.5 (5.0-9.0)
[2023-10-21 09:26] LABS: Add Urine Microscopic? YES
== END 2023-10-21 08:28 | disposition home or self-care (01) ==
PROVIDERS: Physician Assistant Medical; PCP Family Medicine; Visit Provider Family Medicine
DX: Z12.31 Encounter for screening mammogram for malignant neoplasm of breast (principal); E03.9 Hypothyroidism, unspecified; F41.9 Anxiety disorder, unspecified; G40.909 Epilepsy, unspecified, not intractable, without status epilepticus; I10 Essential (primary) hypertension; J44.9 Chronic obstructive pulmonary disease, unspecified
CPT/HCPCS: 36415; 77063; 77067; 80053; 80061; 81001; 81003; 85027

== ENCOUNTER 2024-04-06 01:14 | Day surgery (SDC) | payer OTHER, MEDICARE, SELFPAY ==
[2024-03-19 10:41] VITALS: BMI 31.4
[2024-04-06 13:21] VITALS: BP 126/83; PULSE 98; RESP 18; TEMP 36.1; O2SAT 97
--- NOTE | 2024-04-06 13:37 | P.PNAN_ITS ---
Anes - Initial Pre Proc Eval Procedure: Operation Date: 04/06/24 15:00 Proposed Procedures p Screening Colonoscopy - Uriel Goodman MD Date/Time: 04/06/24 13:37 Surgeon: Uriel Goodman MD Pre Op Diagnosis: screening colon Patient Data Age: 64 Gender: F Height: 1.7 m Weight: 93.4 kg Last Vital Signs Temp 97 F L 04/06/24 13:21 Pulse 98 04/06/24 13:21 Resp 18 04/06/24 13:21 BP 126/83 04/06/24 13:21 Pulse Ox 97 04/06/24 13:21 O2 Del Method Room Air 04/06/24 13:21 Allergies Allergy/AdvReac Type Severity Reaction Status Date / Time No Known Allergies Allergy Verified 04/06/24 13:17 Home Medications ?Medication ?Instructions ?Recorded ?Confirmed ?Type cholecalciferol (vitamin D3) 50 2,000 unit PO DAILY 05/04/19 04/06/24 History mcg (2,000 unit) capsule lamotrigine 100 mg tablet 200 mg PO BID 05/04/19 04/06/24 History levothyroxine 25 mcg tablet 25 mcg PO DAILY 05/04/19 04/06/24 History gjkpmhqs-sbc-sqdiz acid 0.4 1 tablet PO DAILY 05/04/19 04/06/24 History mg-lycopene 300 mcg-lutein 250 mcg tablet (Centrum Silver) raloxifene 60 mg tablet 60 mg PO DAILY 05/04/19 04/06/24 History aspirin 81 mg tablet,delayed 81 mg PO DAILY #90 tabs 10/01/21 04/06/24 Rx release (Adult Low Dose Aspirin) cyclosporine 0.05 % eye drops in a 1 drp EACH EYE BID 02/02/22 04/06/24 History dropperette (Restasis) omeprazole 40 mg capsule,delayed 40 mg PO DAILY #90 caps 08/10/23 04/06/24 Rx release guaifenesin 400 mg tablet (Chest 400 mg PO QID #14 tabs 08/21/23 04/06/24 Rx Congestion Relief) atorvastatin 20 mg tablet 20 mg PO DAILY #90 tabs 08/22/23 04/06/24 Rx albuterol sulfate 90 mcg/actuation 1 inh inhalation Q4H PRN shortness 09/22/23 03/19/24 Rx aerosol inhaler of breath or wheezing #6.7 grams estradiol 0.01% (0.1 mg/gram) 1 g vaginal 3XW #42.5 grams 11/02/23 04/06/24 Rx vaginal cream fluconazole 200 mg tablet 200 mg PO DAILY #3 tabs 12/05/23 03/19/24 Rx (Diflucan) amlodipine 5 mg tablet See Rx Instructions .Route 03/26/24 04/06/24 Rx .COMPLEX #90 tabs Patient hx anesthesia problems: none Family hx anesthesia problems: none Results Review: All pre-operative results and documents have been reviewed as part of the pre- operative evaluation. [facility] Past Medical History Medical History (Updated 12/05/23 @ 11:35 by Chavo Davidson MD) Vaginal discharge Left elbow fracture Closed fracture of capitellum of left humerus Skin tag 09/12/17 removal from lt breast Endometriosis Constipation Chronic GERD COPD (chronic obstructive pulmonary disease) Postmenopausal HRT (hormone replacement therapy) Osteopenia Blepharitis Anxiety Epilepsy Hypothyroidism Pulmonary nodule Surgical History Surgical History S/P breast biopsy, left (09/12/18) Benign History of craniotomy L temporal History of hysterectomy 1994 MIKE/BSO History of elective section times one--twins History of partial thyroidectomy History of exploratory laparotomy x 4 Family History Family History Father Recurrent strokes Hypertension Cerebrovascular accident Alzheimer disease Mother Acute eosinophilic leukemia Thyroid disease Anxiety Other Breast cancer maternal aunts x2 Other Heart disease Social History Social History Social History: the patient lives at home with her . He is a durable power state's attorney for healthcare. She has 3 children. She has 1 daughter and is at a twin boys. 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 Patient used to smoke she quit smoking about 15 years ago. She smoked for 27 years. She is not use any marijuana or illicit drugs no alcohol. She desires to be a full code. Smoking packs per day: 1 Smoking cigarettes per day: 20.0 Years smoked: 25 Smoking pack-years: 25.00 Smoking status: Former smoker Tobacco type: cigarettes Second hand tobacco smoke exposure: No Smoking end date: 03/28/04 Alcohol intake: never Alcohol use details: occasionally Substance use: never Substance use type: does not use Do You Feel Safe in your Home?: Yes Lack of Transportation: No Lack of Food: Never True Current Housing: I Have Housing Concerned About Future Housing: No Difficulty Paying Gas/Electric Bills: No Difficulty Paying for Meds: No Currently Unemployed: No Education: Associate Degree Difficulty w/ Childcare or Family Care: No Living arrangements: with family Additional living arrangements comments: spouse Occupation/Education: occupation 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 Gender identity (if verbalized by the patient): Female Sexual Orientation (if Verbalized by the Patient): Straight or Heterosexual Spiritual care concerns: No Anes - Eval Final PreProcedure Day of Procedure 04/06/24 13:37 Patient weight: obese Heart: regular rate and rhythm Lungs: clear to auscultation Airway: Mallampati scale class II Neurological: alert and oriented Last oral intake: >/= 8 hours ASA classification: III Emergent: no Anesthetic plan: proceed Anesthesia type and monitoring: general GIVS and standard monitoring Results Review: All pre-operative results and documents have been reviewed as part of the pre- operative evaluation. Informed Consent: The patient's anesthetic plan and its attendant risks and benefits were discussed with the patient/family/POA. Questions were solicited and answers provided to the satisfaction of the patient/family/POA.
[2024-04-06] MEDS: LACTATED RINGERS 1,000 ML 150 ML IV CONT (13:40)
--- NOTE | 2024-04-06 13:51 | P.HP_ITS ---
History of Present Illness History of Present Illness Consent: Risks, benefits, and alternatives have been discussed and questions answered. Patient agrees to proceed with procedure. Chief complaint: screening colon Narrative: Mary Weinberg is a 64 year old female with colon polyp 5 years ago Review of Systems Review of Systems: All systems reviewed & are unremarkable except as noted in HPI and below PMFSH Past Medical History Medical History (Updated 12/05/23 @ 11:35 by Chavo Davidson MD) Vaginal discharge Left elbow fracture Closed fracture of capitellum of left humerus Skin tag 09/12/17 removal from lt breast Endometriosis Constipation Chronic GERD COPD (chronic obstructive pulmonary disease) Postmenopausal HRT (hormone replacement therapy) Osteopenia Blepharitis Anxiety Epilepsy Hypothyroidism Pulmonary nodule Surgical History Surgical History S/P breast biopsy, left (09/12/18) Benign History of craniotomy L temporal History of hysterectomy 1994 MIKE/BSO History of elective section times one--twins History of partial thyroidectomy History of exploratory laparotomy x 4 Family History Family History Father Recurrent strokes Hypertension Cerebrovascular accident Alzheimer disease Mother Acute eosinophilic leukemia Thyroid disease Anxiety Other Breast cancer maternal aunts x2 Other Heart disease Social History Social History Social History: the patient lives at home with her . He is a durable power toll booth operator for healthcare. She has 3 children. She has 1 daughter and is at a twin boys. 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 Patient used to smoke she quit smoking about 15 years ago. She smoked for 27 years. She is not use any marijuana or illicit drugs no alcohol. She desires to be a full code. Smoking packs per day: 1 Smoking cigarettes per day: 20.0 Years smoked: 25 Smoking pack-years: 25.00 Smoking status: Former smoker Tobacco type: cigarettes Second hand tobacco smoke exposure: No Smoking end date: 03/28/04 Alcohol intake: never Alcohol use details: occasionally Substance use: never Substance use type: does not use Do You Feel Safe in your Home?: Yes Lack of Transportation: No Lack of Food: Never True Current Housing: I Have Housing Concerned About Future Housing: No Difficulty Paying Gas/Electric Bills: No Difficulty Paying for Meds: No Currently Unemployed: No Education: Associate Degree Difficulty w/ Childcare or Family Care: No Living arrangements: with family Additional living arrangements comments: spouse Occupation/Education: occupation 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 Gender identity (if verbalized by the patient): Female Sexual Orientation (if Verbalized by the Patient): Straight or Heterosexual Spiritual care concerns: No Meds Home Medications and Allergies Home Medications ?Medication ?Instructions ?Recorded ?Confirmed ?Type cholecalciferol (vitamin D3) 50 2,000 unit PO DAILY 05/04/19 04/06/24 History mcg (2,000 unit) capsule lamotrigine 100 mg tablet 200 mg PO BID 05/04/19 04/06/24 History levothyroxine 25 mcg tablet 25 mcg PO DAILY 05/04/19 04/06/24 History deubzeuf-vip-dwqji acid 0.4 1 tablet PO DAILY 05/04/19 04/06/24 History mg-lycopene 300 mcg-lutein 250 mcg tablet (Centrum Silver) raloxifene 60 mg tablet 60 mg PO DAILY 05/04/19 04/06/24 History aspirin 81 mg tablet,delayed 81 mg PO DAILY #90 tabs 10/01/21 04/06/24 Rx release (Adult Low Dose Aspirin) cyclosporine 0.05 % eye drops in a 1 drp EACH EYE BID 02/02/22 04/06/24 History dropperette (Restasis) omeprazole 40 mg capsule,delayed 40 mg PO DAILY #90 caps 08/10/23 04/06/24 Rx release guaifenesin 400 mg tablet (Chest 400 mg PO QID #14 tabs 08/21/23 04/06/24 Rx Congestion Relief) atorvastatin 20 mg tablet 20 mg PO DAILY #90 tabs 08/22/23 04/06/24 Rx albuterol sulfate 90 mcg/actuation 1 inh inhalation Q4H PRN shortness 09/22/23 03/19/24 Rx aerosol inhaler of breath or wheezing #6.7 grams estradiol 0.01% (0.1 mg/gram) 1 g vaginal 3XW #42.5 grams 11/02/23 04/06/24 Rx vaginal cream fluconazole 200 mg tablet 200 mg PO DAILY #3 tabs 12/05/23 03/19/24 Rx (Diflucan) amlodipine 5 mg tablet See Rx Instructions .Route 03/26/24 04/06/24 Rx .COMPLEX #90 tabs Allergies Allergy/AdvReac Type Severity Reaction Status Date / Time No Known Allergies Allergy Verified 04/06/24 13:17 Vital Signs Vital Signs - 24 hr 04/06/24 13:21 Temperature 97 F L Pulse Rate 98 Respiratory Rate 18 Blood Pressure 126/83 Pulse Oximetry 97 Oxygen Delivery Room Air Exam Const: General: comfortable and no acute distress HENMT: Face/Nose/Sinus: Normal nares present Eyes: General: appearance normal, both eyes and all related structures Neck: Neck: no JVD Resp: Auscultation: clear to auscultation bilaterally Cardio: Rate: regular rate Rhythm: regular rhythm GI: Inspection: non-distended GI Palp: Yes Soft to palpation Skin: General skin exam: normal color Neuro: General: gait normal Speech: normal speech Extrem: General: normal to inspection Psych: Mental Status: mental status grossly normal Assessment and Plan Assessment and plan (1) History of colon polyps: Code(s): Z86.010 - Personal history of colon polyps Status: Acute Assessment and Plan: colonoscopy
[2024-04-06 14:07] VITALS: BP 106/51; PULSE 73; RESP 16; O2SAT 95
--- NOTE | 2024-04-06 14:10 | SUR.OPER ---
Notified Dr. Shaikh only 1 of 2 transverse colon polyps retrieved.
[2024-04-06 14:17] VITALS: BP 110/60; PULSE 76; RESP 18; O2SAT 97
[2024-04-06 14:27] VITALS: BP 123/67; PULSE 76; RESP 18; O2SAT 98
== END 2024-04-06 14:41 | disposition home or self-care (01) ==
PROVIDERS: PCP Family Medicine; Visit Provider Internal Medicine Gastroenterology
PROC: 0DJD8ZZ Inspection of Lower Intestinal Tract, Via Natural or Artificial Opening Endoscopic (ICD-10-PCS; CPT 45378; principal; 2024-04-06 15:00)
DX: Z12.11 Encounter for screening for malignant neoplasm of colon (principal); D12.3 Benign neoplasm of transverse colon; D12.4 Benign neoplasm of descending colon; K62.1 Rectal polyp; K57.30 Diverticulosis of large intestine without perforation or abscess without bleeding; K21.9 Gastro-esophageal reflux disease without esophagitis; E03.9 Hypothyroidism, unspecified; J44.9 Chronic obstructive pulmonary disease, unspecified; F41.9 Anxiety disorder, unspecified; N80.9 Endometriosis, unspecified; M85.88 Other specified disorders of bone density and structure, other site; G40.909 Epilepsy, unspecified, not intractable, without status epilepticus; E66.9 Obesity, unspecified; Z68.32 Body mass index [BMI] 32.0-32.9, adult; Z79.810 Long term (current) use of selective estrogen receptor modulators (SERMs); Z79.82 Long term (current) use of aspirin; Z79.51 Long term (current) use of inhaled steroids; Z98.890 Other specified postprocedural states; Z87.891 Personal history of nicotine dependence; Z86.0100 Personal history of colon polyps, unspecified; Z80.3 Family history of malignant neoplasm of breast; Z82.49 Family history of ischemic heart disease and other diseases of the circulatory system
CPT/HCPCS: 45385; 88305; J2704; J7120

== ENCOUNTER 2024-04-13 09:08 | Outpatient (CLI) | payer OTHER, MEDICARE, SELFPAY ==
[2024-04-13 09:39] LABS: Hemoglobin 11.2 g/dL (12.0-15.0); Mean Corpuscular HGB Conc 31.1 g/dl (32-36); Mean Corpuscular Hemoglobin 27.1 pg (26-34); Mean Corpuscular Volume 87.2 fl (80-100); Mean Platelet Volume 9.7 fl (7.4-10.4); Platelet Count Result 372 k/mm3 (150-375); Red Blood Count 4.13 M/mm3 (4.2-5.4); Red Cell Distribution Width 16.7 % (11.5-14.5); White Blood Count 8.6 K/mm3 (4.5-10.0)
[2024-04-13 09:57] LABS: Alanine Aminotransferase 35 U/L (6-35); Albumin Level 3.8 g/dL (3.5-5.1); Alkaline Phosphatase 115 U/L (38-126); Anion Gap 7 mmol/L (4-12); Aspartate Amino Transferase 49 U/L (14-36); Bilirubin,Total 0.5 mg/dL (0.2-1.3); Blood Urea Nitrogen 13 mg/dL (7-17); Calcium 8.8 mg/dL (8.4-10.2); Carbon Dioxide 24 mmol/L (22-30); Chloride 107 mmol/L (98-107); Estimated Glomerular Filt Rate > 60; Glucose 95 mg/dL (65-110); Potassium 3.8 mmol/L (3.4-5.0); Sodium 138 mmol/L (137-145)
[2024-04-13 10:12] LABS: Hemoglobin A1C 5.8 % (<5.7)
== END 2024-04-13 09:09 | disposition home or self-care (01) ==
PROVIDERS: PCP Family Medicine; Visit Provider Physician Assistant Medical
DX: Z00.00 Encounter for general adult medical examination without abnormal findings (principal); R73.09 Other abnormal glucose; I10 Essential (primary) hypertension; R79.89 Other specified abnormal findings of blood chemistry
CPT/HCPCS: 36415; 80053; 83036; 85027

== ENCOUNTER 2024-07-19 07:45 | Outpatient (CLI) | payer MEDICARE, SELFPAY ==
--- OUTSIDE RECORDS SUMMARY | 2024-07-19 07:48 | XMS_ITS | Referral Summary ---
Author Organization [facility] Address [address] [place] [address] Care Team Providers Care Documentation Manager Name Role Phone Srinivasa Ibanez MD Primary Care Provider Allergies No known active allergies Medications omeprazole (PriLOSEC) 40 mg capsule Take by mouth daily 2 Active atorvastatin (LIPITOR) 20 mg tablet Take 1 tablet (20 mg total) by mouth daily 2 Active multivitamin/iron /folic acid (CENTRUM COMPLETE ORAL) Take by mouth daily Active cholecalciferol (Vitamin D3) 2000 unit capsule 1 capsule (2,000 Units total) daily Active albuterol HFA (PROVENTIL HFA,VENTOLIN HFA,PROAIR HFA) 90 mcg/actuation inhaler 3 Active amLODIPine (NORVASC) 5 mg tablet Take 1 tablet (5 mg total) by mouth daily 3 Active Anoro Ellipta 62.5-25 mcg/actuation blister with device Active levothyroxine (SYNTHROID) 25 mcg tabletIndications :Hypothyroidism, unspecified type Take 1 tablet (25 mcg total) by mouth daily 90 tablet 3 4 Active lamoTRIgine (LaMICtal) 200 mg tablet Take 1 tablet (200 mg total) by mouth 2 (two) times a day 180 tablet 3 4 12/20/19 25 Active ibuprofen 200 mg tab/cap Take by mouth every 6 (six) hours as needed for pain Active cycloSPORINE (RESTASIS) 0.05 % ophthalmic emulsion 1 drop 2 (two) times a day Active aspirin 81 mg enteric coated tablet Take 1 tablet (81 mg total) by mouth daily Active raloxifene (EVISTA) 60 mg tabletIndications :Osteoporosis, unspecified osteoporosis type, unspecified pathological fracture presence TAKE 1 TABLET BY MOUTH EVERY DAY 90 tablet 1 5 Active Active Problems Problem Noted Date Diagnosed Date Primary hypertension 02/10/2024 Assessment & Plan (02/10/2024 8:10 AM TRAINING SYSTEMS OFFICER): Stable continue amlodipine Abnormal serum creatinine level 02/02/2022 Acute conjunctivitis 02/02/2022 Anxiety 02/02/2022 Constipation 02/02/2022 Dysuria 02/02/2022 Epilepsy 02/02/2022 Ex-smoker 02/02/2022 Family history of cancer 02/02/2022 Fatigue 02/02/2022 Hypercalcemia 02/02/2022 Overweight 02/02/2022 Polyp of colon 02/02/2022 Tick bite 02/02/2022 Urinary tract infectious disease 02/02/2022 Hyperlipidemia 02/02/2022 Assessment & Plan (02/10/2024 8:10 AM TRAINING SYSTEMS OFFICER): Stable continue Lipitor Stenosis of carotid artery 11/12/2021 Assessment & Plan (02/10/2024 8:10 AM TRAINING SYSTEMS OFFICER): Right ICA stenosis found on CTA head and neck 2-3 years ago, has had subsequent duplexes which have not shown stenosis. I have recommended continued risk factor modification with ASA statin therapy and good blood pressure control, we will repeat carotid duplex in 1 year, if this is normal she would no longer need surveillance. Assessment & Plan (02/04/2023 11:46 AM TRAINING SYSTEMS OFFICER): Bilateral carotid artery stenosis. She remains asymptomatic denying any slurred speech unilateral neurological deficits or visual changes. Maintains compliance with medications. Plan: Follow-up in 1 year for routine surveillance with a carotid duplex. Seizures, generalized convulsive 04/24/2018 Temporal lobe epilepsy 04/24/2018 Non-toxic multinodular goiter 05/11/2017 Osteoporosis 03/30/2016 Assessment & Plan (05/24/2018 12:57 PM TRAINING SYSTEMS OFFICER): She does have a history of alendronate use, though we do not have any records of osteoporotic range DEXA testing. She has never fractured. She has had basically age related decline in her BMD since last test and is nearing osteoporotic range bone density - Large studies have established safety with Raloxifene, and modest increase in vertebral and femoral bone density with continue use. Also animal studies show protective role against seizures. - Cautioned on risk of DVT/PE and perhaps increased risk of CVA. She will alert us or PCP with any symptoms - With family history of breast cancer, she as started on Raloxifene 60 mg daily in 03/2016. - DXA from 03/2017 showed improved BMD at the lumbar spine. Continue Raloxifene - Plan to repeat DEXA annually Nontoxic single thyroid nodule 10/08/2010 Assessment & Plan (05/24/2018 12:57 PM TRAINING SYSTEMS OFFICER): Exam is stable. The size has remained unchanged since her cyst drainage several years ago - consider repeat Ultrasound if there is a change in clinical exam Hypothyroidism 10/07/2010 Assessment & Plan (05/24/2018 12:57 PM TRAINING SYSTEMS OFFICER): - Biochemically is euthyroid today as above. - Continue LT4 25 mcg daily. - The TSH at the lower end of normal has been persistent for her over time and might suggest some autonomous activity of the nodule. Will follow. Vitamin D deficiency 10/07/2010 Assessment & Plan (05/24/2018 12:58 PM TRAINING SYSTEMS OFFICER): Repeat levels today remain at low end of normal range. Continue daily vitamin D. Immunizations Immunization Administration Dates Next Due Influenza, Quadrivalent, Tamara l Culture-based MDCK, Preservative Free, Antibiotic Free, Intramuscular 12/31/2020 Influenza, Quadrivalent, Spl it, Preservative Free, Intramuscular 12/05/2019,12/02/2018,01/24/2018,01/15 Influenza, Trivalent, Cell Culture-based MDCK, Preservative Free, Antibiotic Free, Intramuscular 12/08/2022 Influenza, Trivalent, Preser vative Free, Intramuscular 01/03/2013 Pneumococcal Polysaccharide PPV23 04/14/2021 Tdap 10/21/2014 Social History Tobacco Use Types Packs/Day Years Used Date Smoking Tobacco: Former Smokeless Tobacco: Never Tobacco Cessation:Counseling Given: Not Answered Comments Unknown Sex and Gender Information Value Date Recorded Sex Assigned at Not on file Legal Sex Female 2:46 AM TRAINING SYSTEMS OFFICER Gender Identity Female 05/24/2018 1:46 PM TRAINING SYSTEMS OFFICER Sexual Orientation Not on file Last Filed Vital Signs Vital Sign Reading Time Taken Comments Blood Pressure 108/74 02/08/2024 10:28 AM TRAINING SYSTEMS OFFICER Pulse 100 02/08/2024 10:28 AM TRAINING SYSTEMS OFFICER Temperature 36.4 C (97.5 F) 08/02/2023 3:35 PM CDT Respiratory Rate - - Oxygen Saturation 97% 02/08/2024 10:28 AM TRAINING SYSTEMS OFFICER Inhaled Oxygen Concentration - - Weight 93.4 kg (206 lb) 12/20/2023 11:04 AM CDT Height 171.5 cm (5' 7.5 ) 12/20/2023 11:04 AM CD T Body Mass Index 31.79 12/20/2023 11:04 AM CDT Plan of Treatment Not on file Insurance MEDICARE [facility] [employer] MEDICARE [place]OLD MEDIC[place] [id number] Care Teams Documentation Manager Relationship Specialty Start Date End Date Srinivasa Ibanez MD [id number] [facility] [address] [place] [address] PCP - General Family Medicine 04/24/19
--- OUTSIDE RECORDS SUMMARY | 2024-07-19 07:49 | XMS_ITS | Clinical Summary ---
Author Organization [facility] Address [address] [place] [address] Care Team Providers Care It Recruiter Name Role Phone Srinivasa Ibanez MD Primary [...] 02/10/2024 Assessment & Plan (02/10/2024 8:10 AM ORTHOPEDIC SHOE MAKER): Stable continue amlodipine Abnormal serum creatinine level 02/02/2022 Acute conjunctivitis 02/02/2022 Anxiety 02/02/2022 Constipation 02/02/2022 Dysuria 02/02/2022 Epilepsy 02/02/2022 Ex-smoker 02/02/2022 Family history of cancer 02/02/2022 Fatigue 02/02/2022 Hypercalcemia 02/02/2022 Overweight 02/02/2022 Polyp of colon 02/02/2022 Tick bite 02/02/2022 Urinary tract infectious disease 02/02/2022 Hyperlipidemia 02/02/2022 Assessment & Plan (02/10/2024 8:10 AM ORTHOPEDIC SHOE MAKER): Stable continue Lipitor Stenosis of carotid artery 11/12/2021 Assessment & Plan (02/10/2024 8:10 AM ORTHOPEDIC SHOE MAKER): Right ICA stenosis found on CTA head and neck 2-3 years ago, has had subsequent duplexes which have not shown stenosis. I have recommended continued risk factor modification with ASA statin therapy and good blood pressure control, we will repeat carotid duplex in 1 year, if this is normal she would no longer need surveillance. Assessment & Plan (02/04/2023 11:46 AM ORTHOPEDIC SHOE MAKER): Bilateral carotid artery stenosis. She remains asymptomatic denying any slurred speech unilateral neurological deficits or visual changes. Maintains compliance with medications. Plan: Follow-up in 1 year for routine surveillance with a carotid duplex. 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 The size has remained unchanged since her cyst drainage several years ago - consider repeat Ultrasound if there is a change in clinical exam Hypothyroidism 10/07/2010 Assessment & Plan (05/24/2018 12:57 PM ORTHOPEDIC SHOE MAKER): - Biochemically is euthyroid today as above. - Continue LT4 25 mcg daily. - The TSH at the lower end of normal has been persistent for her over time and might suggest some autonomous activity of the nodule. Will follow. Vitamin D deficiency 10/07/2010 Assessment & Plan (05/24/2018 12:58 PM ORTHOPEDIC SHOE MAKER): Repeat levels today remain at low end [...] 01/03/2013 Pneumococcal Polysaccharide PPV23 04/14/2021 Tdap 10/21/2014 Surgical History Surgery Date Site/Laterality Comments CRANIOTOMY HYSTERECTOMY Medical History Medical History Date Comments Anxiety COPD (chronic obstructive pulmonary disease) (HC C) GERD (gastroesophageal reflux disease) Thyroid disease Family History Medical History Relation Name Comments Hypertension Father Stroke Father Breast cancer Other Heart disease Other Relation Name Status Comments Father Other Social History Tobacco Use Types Packs/Day Years Used Date Smoking Tobacco: Former Smokeless Tobacco: Never Tobacco Cessation:Counseling Given: Not Answered Comments Unknown Sex and Gender Information Value Date Recorded Sex Assigned at Not on file Legal Sex Female 2:46 AM ORTHOPEDIC SHOE MAKER Gender Identity Female 05/24/2018 1:46 PM ORTHOPEDIC SHOE MAKER Sexual Orientation Not on file Obstetrics History Last Filed Vital Signs Vital Sign Reading Time Taken Comments Blood Pressure 108/74 02/08/2024 10:28 AM ORTHOPEDIC SHOE MAKER Pulse 100 02/08/2024 10:28 AM ORTHOPEDIC SHOE MAKER Temperature 36.4 C (97.5 F) 08/02/2023 3:35 PM CDT Respiratory Rate - - Oxygen Saturation 97% 02/08/2024 10:28 AM ORTHOPEDIC SHOE MAKER Inhaled Oxygen Concentration - - Weight 93.4 kg (206 lb) 12/20/2023 11:04 AM CDT Height 171.5 cm (5' 7.5 ) 12/20/2023 11:04 AM CD T Body Mass Index 31.79 12/20/2023 11:04 AM CDT Plan of Treatment Health Maintenance Due Date Last Done Comments Breast Cancer Screening-Mammogram 1960 Colon Cancer Screening-Colonoscopy 1960 Depression Screening 1960 Hepatitis C Screening 1960 Hepatitis B Screening 01/16/1978 Regular Well Visit/Exam 18-64 01/16/1978 Zoster Vaccine (1 of 2) 01/16/2010 Covid-19 Vaccine ( season) 2023 03/01/2021, 05/16/2020, 04/17/2020 DTaP/Tdap/Td Vaccine (2 - Td or Tdap) 10/21/2024 10/21/2014 Influenza Vaccine (Season Ended) 2024 12/08/2022, 12/31/2020, 12/05/2019, Additional history exists Pneumococcal vaccine <65 Aged Out 04/14/2021 No longer eligible based on patient's age to complete this topic Insurance MEDICARE [facility] AETNA MEDICARE GOLD MEDICARE [facility] Address: [address] [address] [place] [address] [place] [address] Care Teams It Recruiter Relationship Specialty Start Date End Date Srinivasa Ibanez MD [address] [facility] [address] [place] [address] PCP - General Family Medicine 04/24/19
== END 2024-07-19 07:46 | disposition home or self-care (01) ==
LOC: ANHAUDASC 07:46
PROVIDERS: PCP Family Medicine; Visit Provider Otolaryngology
DX: H90.3 Sensorineural hearing loss, bilateral (principal); H93.19 Tinnitus, unspecified ear; R43.8 Other disturbances of smell and taste; J32.0 Chronic maxillary sinusitis
CPT/HCPCS: 92557; 92567

== ENCOUNTER 2024-07-19 14:25 | Outpatient (CLI) | payer MEDICARE, SELFPAY ==
--- NOTE | ~2024-07-19 | CT_ITS ---
CT sinus wo con Ordering provider: Marlon Yeager M.D. History: . J32.0 - Chronic maxillary sinusitis . Comparison: None. Technique: Thin slice Scans CT of the paranasal sinuses was performed with coronal and sagittal refor matted images. No IV contrast. . Automated exposure control and iterative reconstruction technique w ere employed. The dose-length product was 325.47 mGy-cm. Findings: NASAL SEPTUM: Mild left nasal septal deviation. OSTEOMEATAL UNITS: Bilaterally patent. NASAL TURBINATES AND NASOPHARYNX: Normal. PARANASAL SINUSES: Right maxillary sinus disease. Otherwise, Well aerated. VISUALIZED MASTOIDS: Normal as visualized. BONES: Postoperative changes in the left temporal bone. Otherwise, Normal. SUPERFICIAL SOFT TISSUES/VISUALIZED BRAIN PARENCHYMA: Normal. IMPRESSION: Left nasal septal deviation. Right maxillary sinus disease. Reviewed, dictated and finalized at location A.
--- OUTSIDE RECORDS SUMMARY | 2024-07-19 15:41 | XMS_ITS | Referral Summary ---
Author Organization [facility] Address [address] [place] [address] Care Team Providers Care Supervisor Fertilizer Processing Name Role Phone Srinivasa Ibanez MD Primary [...] 02/10/2024 Assessment & Plan (02/10/2024 8:10 AM LANDSCAPE DRAFTER): Stable continue amlodipine Abnormal serum creatinine level 02/02/2022 Acute conjunctivitis 02/02/2022 Anxiety 02/02/2022 Constipation 02/02/2022 Dysuria 02/02/2022 Epilepsy 02/02/2022 Ex-smoker 02/02/2022 Family history of cancer 02/02/2022 Fatigue 02/02/2022 Hypercalcemia 02/02/2022 Overweight 02/02/2022 Polyp of colon 02/02/2022 Tick bite 02/02/2022 Urinary tract infectious disease 02/02/2022 Hyperlipidemia 02/02/2022 Assessment & Plan (02/10/2024 8:10 AM LANDSCAPE DRAFTER): Stable continue Lipitor Stenosis of carotid artery 11/12/2021 Assessment & Plan (02/10/2024 8:10 AM LANDSCAPE DRAFTER): Right ICA stenosis found on CTA head and neck 2-3 years ago, has had subsequent duplexes which have not shown stenosis. I have recommended continued risk factor modification with ASA statin therapy and good blood pressure control, we will repeat carotid duplex in 1 year, if this is normal she would no longer need surveillance. Assessment & Plan (02/04/2023 11:46 AM LANDSCAPE DRAFTER): Bilateral carotid artery stenosis. She remains asymptomatic denying any slurred speech unilateral neurological deficits or visual changes. Maintains compliance with medications. Plan: Follow-up in 1 year for routine surveillance with a carotid duplex. 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 The size has remained unchanged since her cyst drainage several years ago - consider repeat Ultrasound if there is a change in clinical exam Hypothyroidism 10/07/2010 Assessment & Plan (05/24/2018 12:57 PM LANDSCAPE DRAFTER): - Biochemically is euthyroid today as above. - Continue LT4 25 mcg daily. - The TSH at the lower end of normal has been persistent for her over time and might suggest some autonomous activity of the nodule. Will follow. Vitamin D deficiency 10/07/2010 Assessment & Plan (05/24/2018 12:58 PM LANDSCAPE DRAFTER): Repeat levels today remain at low end [...] on file Legal Sex Female 2:46 AM LANDSCAPE DRAFTER Gender Identity Female 05/24/2018 1:46 PM LANDSCAPE DRAFTER Sexual Orientation Not on file Last Filed Vital Signs Vital Sign Reading Time Taken Comments Blood Pressure 108/74 02/08/2024 10:28 AM LANDSCAPE DRAFTER Pulse 100 02/08/2024 10:28 AM LANDSCAPE DRAFTER Temperature 36.4 C (97.5 F) 08/02/2023 3:35 PM CDT Respiratory Rate - - Oxygen Saturation 97% 02/08/2024 10:28 AM LANDSCAPE DRAFTER Inhaled Oxygen Concentration - - Weight 93.4 kg (206 lb) 12/20/2023 11:04 AM CDT Height 171.5 cm (5' 7.5 ) 12/20/2023 11:04 AM CD T Body Mass Index 31.79 12/20/2023 11:04 AM CDT Plan of Treatment Not on file Insurance MEDICARE [facility] AETNA MEDICARE GOLD MEDICARE [place] [id number] Care Teams Supervisor Fertilizer Processing Relationship Specialty Start Date End Date Srinivasa Ibanez MD [address] [facility] [address] [place] [address] PCP - General Family Medicine 04/24/19
--- OUTSIDE RECORDS SUMMARY | 2024-07-19 15:41 | XMS_ITS | Clinical Summary ---
Author Organization [facility] Address [address] [place] [address] Care Team Providers Care Lens Inspector Name Role Phone Srinivasa Ibanez MD Primary [...] 02/10/2024 Assessment & Plan (02/10/2024 8:10 AM OBSTETRICS TECH): Stable continue amlodipine Abnormal serum creatinine level 02/02/2022 Acute conjunctivitis 02/02/2022 Anxiety 02/02/2022 Constipation 02/02/2022 Dysuria 02/02/2022 Epilepsy 02/02/2022 Ex-smoker 02/02/2022 Family history of cancer 02/02/2022 Fatigue 02/02/2022 Hypercalcemia 02/02/2022 Overweight 02/02/2022 Polyp of colon 02/02/2022 Tick bite 02/02/2022 Urinary tract infectious disease 02/02/2022 Hyperlipidemia 02/02/2022 Assessment & Plan (02/10/2024 8:10 AM OBSTETRICS TECH): Stable continue Lipitor Stenosis of carotid artery 11/12/2021 Assessment & Plan (02/10/2024 8:10 AM OBSTETRICS TECH): Right ICA stenosis found on CTA head and neck 2-3 years ago, has had subsequent duplexes which have not shown stenosis. I have recommended continued risk factor modification with ASA statin therapy and good blood pressure control, we will repeat carotid duplex in 1 year, if this is normal she would no longer need surveillance. Assessment & Plan (02/04/2023 11:46 AM OBSTETRICS TECH): Bilateral carotid artery stenosis. She remains asymptomatic denying any slurred speech unilateral neurological deficits or visual changes. Maintains compliance with medications. Plan: Follow-up in 1 year for routine surveillance with a carotid duplex. 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 The size has remained unchanged since her cyst drainage several years ago - consider repeat Ultrasound if there is a change in clinical exam Hypothyroidism 10/07/2010 Assessment & Plan (05/24/2018 12:57 PM OBSTETRICS TECH): - Biochemically is euthyroid today as above. - Continue LT4 25 mcg daily. - The TSH at the lower end of normal has been persistent for her over time and might suggest some autonomous activity of the nodule. Will follow. Vitamin D deficiency 10/07/2010 Assessment & Plan (05/24/2018 12:58 PM OBSTETRICS TECH): Repeat levels today remain at low end [...] on file Legal Sex Female 2:46 AM OBSTETRICS TECH Gender Identity Female 05/24/2018 1:46 PM OBSTETRICS TECH Sexual Orientation Not on file Obstetrics History Last Filed Vital Signs Vital Sign Reading Time Taken Comments Blood Pressure 108/74 02/08/2024 10:28 AM OBSTETRICS TECH Pulse 100 02/08/2024 10:28 AM OBSTETRICS TECH Temperature 36.4 C (97.5 F) 08/02/2023 3:35 PM CDT Respiratory Rate - - Oxygen Saturation 97% 02/08/2024 10:28 AM OBSTETRICS TECH Inhaled Oxygen Concentration - - Weight 93.4 [...] age to complete this topic Insurance MEDICARE [facility] AETNA MEDICARE GOLD MEDICARE [place] [id number] Care Teams Lens Inspector Relationship Specialty Start Date End Date Srinivasa Ibanez MD [address] [facility] [address] [place] [address] PCP - General Family Medicine 04/24/19
== END 2024-07-19 14:26 | disposition home or self-care (01) ==
PROVIDERS: PCP Family Medicine; Visit Provider Otolaryngology
DX: J32.0 Chronic maxillary sinusitis (principal); H93.19 Tinnitus, unspecified ear; H90.3 Sensorineural hearing loss, bilateral; J34.2 Deviated nasal septum
CPT/HCPCS: 70486

== ENCOUNTER 2024-10-26 08:04 | Outpatient (CLI) | payer MEDICARE, SELFPAY ==
--- OUTSIDE RECORDS SUMMARY | 2024-10-26 08:09 | XMS_ITS | Clinical Summary ---
Author Organization [facility] Address [address] [place] [address] Care Team Providers Care Prison Guard Name Role Phone Srinivasa Ibanez MD Primary [...] mouth daily 90 tablet 3 4 Active ibuprofen 200 mg tab/cap Take by [...] EVERY DAY 90 tablet 1 5 Active azelastine (ASTELIN) 137 mcg (0.1 %) nasal spray 5 Active estradioL (ESTRACE) 0.01 % (0.1 mg/gram) vaginal cream INSER 1 GRAM VAGINALLY 3 TIMES A WEEK 5 Active lamoTRIgine (LaMICtal) 200 mg tablet Take 1 tablet (200 mg total) by mouth every morning AND 1.5 tablets (300 mg total) nightly. 225 tablet 1 5 03/12/20 25 Active Active Problems Problem Noted Date Diagnosed Date Primary hypertension 02/10/2024 Assessment & Plan (02/10/2024 8:10 AM CUTTER PLASTICS ROLLS): Stable continue amlodipine Abnormal serum creatinine level 02/02/2022 Acute conjunctivitis 02/02/2022 Anxiety 02/02/2022 Constipation 02/02/2022 Dysuria 02/02/2022 Epilepsy 02/02/2022 Ex-smoker 02/02/2022 Family history of cancer 02/02/2022 Fatigue 02/02/2022 Hypercalcemia 02/02/2022 Overweight 02/02/2022 Polyp of colon 02/02/2022 Tick bite 02/02/2022 Urinary tract infectious disease 02/02/2022 Hyperlipidemia 02/02/2022 Assessment & Plan (02/10/2024 8:10 AM CUTTER PLASTICS ROLLS): Stable continue Lipitor Stenosis of carotid artery 11/12/2021 Assessment & Plan (02/10/2024 8:10 AM CUTTER PLASTICS ROLLS): Right ICA stenosis found on CTA head and neck 2-3 years ago, has had subsequent duplexes which have not shown stenosis. I have recommended continued risk factor modification with ASA statin therapy and good blood pressure control, we will repeat carotid duplex in 1 year, if this is normal she would no longer need surveillance. Assessment & Plan (02/04/2023 11:46 AM CUTTER PLASTICS ROLLS): Bilateral carotid artery stenosis. She remains asymptomatic denying any slurred speech unilateral neurological deficits or visual changes. Maintains compliance with medications. Plan: Follow-up in 1 year for routine surveillance with a carotid duplex. 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 The size has remained unchanged since her cyst drainage several years ago - consider repeat Ultrasound if there is a change in clinical exam Hypothyroidism 10/07/2010 Assessment & Plan (05/24/2018 12:57 PM CUTTER PLASTICS ROLLS): - Biochemically is euthyroid today as above. - Continue LT4 25 mcg daily. - The TSH at the lower end of normal has been persistent for her over time and might suggest some autonomous activity of the nodule. Will follow. Vitamin D deficiency 10/07/2010 Assessment & Plan (05/24/2018 12:58 PM CUTTER PLASTICS ROLLS): Repeat levels today remain at low end of normal range. Continue daily vitamin D. Encounters Date Type Department Care Team Description 07/31/2024 8:00 PM CDT Lab [facility] Advanced Medicine [facility] Advanced Medicine ([facility]) [address] [place] [phone] Hypothyroidism, unspecified type 07/31/2024 3:00 PM CDT Office Visit [facility] Endocrinology Metabolism and Lipid [address] [facility] 5th [place] [address] [place] [address] Johnny Adams MD Osteopenia after menopause (Primary Dx); Hypothyroidism, unspecified type; Osteoporosis, unspecified osteoporosis type, unspecified pathological fracture presence from Last 3 Months Immunizations Immunization Administration Dates Next Due Influenza, [...] Comments Anxiety COPD (chronic obstructive pulmonary disease) GERD (gastroesophageal reflux disease) Thyroid disease Family [...] on file Legal Sex Female 2:46 AM CUTTER PLASTICS ROLLS Gender Identity Female 05/24/2018 1:46 PM CUTTER PLASTICS ROLLS Sexual Orientation Not on file Obstetrics History Last Filed Vital Signs Vital Sign Reading Time Taken Comments Blood Pressure 138/84 07/31/2024 3:30 PM CDT Pulse 90 07/31/2024 3:30 PM CDT Temperature 36.5 C (97.7 F) 07/31/2024 3:30 PM CDT Respiratory Rate - - Oxygen Saturation 97% 02/08/2024 10:28 AM CUTTER PLASTICS ROLLS Inhaled Oxygen Concentration - - Weight 94.8 kg (209 lb) 07/31/2024 3:30 PM CDT Height 171.5 cm (5' 7.5) 07/31/2024 3:30 PM CDT Body Mass Index 32.25 07/31/2024 3:30 PM CDT Plan of Treatment Health Maintenance Due Date Last Done Comments Breast Cancer Screening-Mammogram 1960 Colon Cancer Screening-Colonoscopy 1960 Depression Screening 1960 Hepatitis C Screening 1960 Hepatitis B Screening 01/16/1978 Regular Well Visit/Exam 18-64 01/16/1978 Zoster Vaccine (1 of 2) 01/16/2010 Covid-19 Vaccine (4 - season) 2023 03/01/2021, 05/16/2020, 04/17/2020 DTaP/Tdap/Td Vaccine (2 - Td or Tdap) 10/21/2024 10/21/2014 Influenza Vaccine (#1) 2024 3, 12/31/2020, 12/05/2019, Additional history exists Pneumococcal vaccine <65 Aged Out 04/14/2021 No longer eligible based on patient's age to complete this topic Procedures Procedure Name Priority Date/Time Associated Diagnosis Comments T4, FREE Routine 07/31/2024 5:34 PM CDT Hypothyroidism, unspecified type TSH Routine 07/31/2024 5:34 PM CDT Hypothyroidism, unspecified type from Last 3 Months Results * TSH (07/31/2024 5:34 PM CDT) Thyroid Stimulating Hormone 0.69 0.30 - 4.20 mcIUnit/mL Blood 07/31/2024 5:34 PM CDT 07/31/2024 6:17 PM CDT us Kiana Garcia MD LAB BLOOD ORDERABLES Beverley warner Result [facility] Department [place] [address] * T4, free (07/31/2024 5:34 PM CDT) Free T4 0.93 0.90 - 1.70 ng/dL Blood 07/31/2024 5:34 PM CDT 07/31/2024 6:17 PM CDT Kiana Garcia MD LAB BLOOD ORDERABLES Beverley warner Result [facility] Department [place] [address] from Last 3 Months Insurance AETNA MEDICARE [facility]OLD [facility]ICARE [facility] A[facility]NA MEDIC[facility] GOLD Care Teams Prison Guard Relationship Specialty Start Date End Date Srinivasa Ibanez MD [address] [facility] [address] [place] [address] PCP - General Family Medicine 04/24/19
--- OUTSIDE RECORDS SUMMARY | 2024-10-26 08:09 | XMS_ITS | Referral Summary ---
Author Organization [facility] Address [address] [place] [address] Care Team Providers Care Yarrow Gatherer Name Role Phone Srinivasa Ibanez MD Primary Care Provider Encounters Date Type Department Care Team Description 07/31/2024 8:00 PM CDT Lab [facility] Advanced Medicine ([facility]) [address] [place] [address] Hypothyroidism, unspecified type 07/31/2024 3:00 PM CDT Office Visit [facility] Endocrinology Metabolism and Lipid [address] [facility] 5[address] [place] [address] [place] [address] Johnny Admas MD Osteopenia after menopause (Primary Dx); Hypothyroidism, unspecified type; Osteoporosis, unspecified osteoporosis type, unspecified pathological fracture presence from Last 3 Months Allergies No known active allergies Medications omeprazole [...] 02/10/2024 Assessment & Plan (02/10/2024 8:10 AM EDUCATIONAL ADMINISTRATOR): Stable continue amlodipine Abnormal serum creatinine level 02/02/2022 Acute conjunctivitis 02/02/2022 Anxiety 02/02/2022 Constipation 02/02/2022 Dysuria 02/02/2022 Epilepsy 02/02/2022 Ex-smoker 02/02/2022 Family history of cancer 02/02/2022 Fatigue 02/02/2022 Hypercalcemia 02/02/2022 Overweight 02/02/2022 Polyp of colon 02/02/2022 Tick bite 02/02/2022 Urinary tract infectious disease 02/02/2022 Hyperlipidemia 02/02/2022 Assessment & Plan (02/10/2024 8:10 AM EDUCATIONAL ADMINISTRATOR): Stable continue Lipitor Stenosis of carotid artery 11/12/2021 Assessment & Plan (02/10/2024 8:10 AM EDUCATIONAL ADMINISTRATOR): Right ICA stenosis found on CTA head and neck 2-3 years ago, has had subsequent duplexes which have not shown stenosis. I have recommended continued risk factor modification with ASA statin therapy and good blood pressure control, we will repeat carotid duplex in 1 year, if this is normal she would no longer need surveillance. Assessment & Plan (02/04/2023 11:46 AM EDUCATIONAL ADMINISTRATOR): Bilateral carotid artery stenosis. She remains asymptomatic denying any slurred speech unilateral neurological deficits or visual changes. Maintains compliance with medications. Plan: Follow-up in 1 year for routine surveillance with a carotid duplex. 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 The size has remained unchanged since her cyst drainage several years ago - consider repeat Ultrasound if there is a change in clinical exam Hypothyroidism 10/07/2010 Assessment & Plan (05/24/2018 12:57 PM EDUCATIONAL ADMINISTRATOR): - Biochemically is euthyroid today as above. - Continue LT4 25 mcg daily. - The TSH at the lower end of normal has been persistent for her over time and might suggest some autonomous activity of the nodule. Will follow. Vitamin D deficiency 10/07/2010 Assessment & Plan (05/24/2018 12:58 PM EDUCATIONAL ADMINISTRATOR): Repeat levels today remain at low end [...] on file Legal Sex Female 2:46 AM EDUCATIONAL ADMINISTRATOR Gender Identity Female 05/24/2018 1:46 PM EDUCATIONAL ADMINISTRATOR Sexual Orientation Not on file Last Filed Vital Signs Vital Sign Reading Time Taken Comments Blood Pressure 138/84 07/31/2024 3:30 PM CDT Pulse 90 07/31/2024 3:30 PM CDT Temperature 36.5 C (97.7 F) 07/31/2024 3:30 PM CDT Respiratory Rate - - Oxygen Saturation 97% 02/08/2024 10:28 AM EDUCATIONAL ADMINISTRATOR Inhaled Oxygen Concentration - - Weight 94.8 kg (209 lb) 07/31/2024 3:30 PM CDT Height 171.5 cm (5' 7.5) 07/31/2024 3:30 PM CDT Body Mass Index 32.25 07/31/2024 3:30 PM CDT Plan of Treatment Not on file Procedures Procedure Name Priority Date/Time Associated Diagnosis Comments T4, FREE Routine 07/31/2024 5:34 PM CDT Hypothyroidism, unspecified type TSH Routine 07/31/2024 5:34 PM CDT Hypothyroidism, unspecified type from Last 3 Months Results * TSH (07/31/2024 5:34 PM CDT) Thyroid Stimulating Hormone 0.69 0.30 - 4.20 mcIUnit/mL Blood 07/31/2024 5:34 PM CDT 07/31/2024 6:17 PM CDT Kiana Garcia MD LAB BLOOD ORDERABLES Beverley l Result [facility] Department [place] [address] * T4, free (07/31/2024 5:34 PM CDT) Free T4 0.93 0.90 - 1.70 ng/dL Blood 07/31/2024 5:34 PM CDT 07/31/2024 6:17 PM CDT Kiana Garcia MD LAB BLOOD ORDERABLES Beverley l Result Performing Organization Address City/[facility]/ZIP Co de Phone Number [facility] Department [place] [address] from Last 3 Months Insurance AETNA MEDICARE GOLD MEDICARE [facility] AETNA MEDICARE GOLD Care Teams Yarrow Gatherer Relationship Specialty Start Date End Date Srinivasa Ibanez MD [address] [facility] [address] [place] [address] PCP - General Family Medicine 04/24/19
[2024-10-26 09:21] LABS: Hematocrit 39.2 % (37.0-47.0); Hemoglobin 12.0 g/dL (12.0-15.0); Mean Corpuscular HGB Conc 30.6 g/dl (32-36); Mean Corpuscular Hemoglobin 27.3 pg (26-34); Mean Corpuscular Volume 89.3 fl (80-100); Platelet Count Result 395 k/mm3 (150-375); Red Blood Count 4.39 M/mm3 (4.2-5.4); White Blood Count 8.4 K/mm3 (4.5-10.0)
[2024-10-26 09:26] LABS: Hemoglobin A1C 5.8 % (<5.7)
[2024-10-26 09:39] LABS: Alanine Aminotransferase 36 U/L (6-35); Albumin Level 4.1 g/dL (3.5-5.1); Alkaline Phosphatase 122 U/L (38-126); Anion Gap 6 mmol/L (4-12); Aspartate Amino Transferase 49 U/L (14-36); Bilirubin,Total 0.5 mg/dL (0.2-1.3); Blood Urea Nitrogen 17 mg/dL (7-17); Calcium 9.6 mg/dL (8.4-10.2); Carbon Dioxide 25 mmol/L (22-30); Chloride 105 mmol/L (98-107); Cholesterol 173 mg/dL (0-200); Estimated Glomerular Filt Rate > 60; Glucose 88 mg/dL (65-110); HDL Direct 77 mg/dL; Potassium 3.9 mmol/L (3.4-5.0); Sodium 136 mmol/L (137-145); Total Protein 7.6 g/dL (6.3-8.2); Triglycerides 83 mg/dL (<150)
== END 2024-10-26 08:05 | disposition home or self-care (01) ==
LOC: ANHLAB 08:07
PROVIDERS: PCP Family Medicine; Visit Provider Physician Assistant Medical
DX: I10 Essential (primary) hypertension (principal); R74.8 Abnormal levels of other serum enzymes; J44.9 Chronic obstructive pulmonary disease, unspecified; R73.01 Impaired fasting glucose
CPT/HCPCS: 36415; 80053; 80061; 83036; 85027

== ENCOUNTER 2024-12-24 16:19 | Outpatient (CLI) | payer MEDICARE, SELFPAY ==
--- OUTSIDE RECORDS SUMMARY | 2024-12-24 16:58 | XMS_ITS | Clinical Summary ---
Author Organization [facility] Address [address] [place] [address] Care Team Providers Care Furnace Installer Helper Name Role Phone Srinivasa Ibanez MD Primary [...] Ellipta 62.5-25 mcg/actuation blister with device Active ibuprofen 200 mg tab/cap Take by mouth every 6 (six) hours as needed for pain Active cycloSPORINE (RESTASIS) 0.05 % ophthalmic emulsion 1 drop 2 (two) times a day Active aspirin 81 mg enteric coated tablet Take 1 tablet (81 mg total) by mouth daily Active azelastine (ASTELIN) 137 mcg (0.1 %) nasal spray 5 Active estradioL (ESTRACE) 0.01 % (0.1 mg/gram) vaginal cream INSER 1 GRAM VAGINALLY 3 TIMES A WEEK 5 Active lamoTRIgine (LaMICtal) 200 mg tablet Take 1 tablet (200 mg total) by mouth every morning AND 1.5 tablets (300 mg total) nightly. 225 tablet 1 5 03/12/20 25 Active raloxifene (EVISTA) 60 mg tabletIndications :Osteoporosis, unspecified osteoporosis type, unspecified pathological fracture presence TAKE 1 TABLET BY MOUTH EVERY DAY 90 tablet 3 5 Active levothyroxine (SYNTHROID) 25 mcg tabletIndications :Hypothyroidism, unspecified type TAKE 1 TABLET BY MOUTH EVERY DAY 90 tablet 3 5 Active Active Problems Problem Noted Date Diagnosed Date Primary hypertension 02/10/2024 Assessment & Plan (02/10/2024 8:[address] SQL PROGRAMMER): Stable continue amlodipine Abnormal serum creatinine level 02/02/2022 Acute conjunctivitis 02/02/2022 Anxiety 02/02/2022 Constipation 02/02/2022 Dysuria 02/02/2022 Epilepsy 02/02/2022 Ex-smoker 02/02/2022 Family history of cancer 02/02/2022 Fatigue 02/02/2022 Hypercalcemia 02/02/2022 Overweight 02/02/2022 Polyp of colon 02/02/2022 Tick bite 02/02/2022 Urinary tract infectious disease 02/02/2022 Hyperlipidemia 02/02/2022 Assessment & Plan (02/10/2024 8:[address] SQL PROGRAMMER): Stable continue Lipitor Stenosis of carotid artery 11/12/2021 Assessment & Plan (02/10/2024 8:[address] SQL PROGRAMMER): Right ICA stenosis found on CTA head and neck 2-3 years ago, has had subsequent duplexes which have not shown stenosis. I have recommended continued risk factor modification with ASA statin therapy and good blood pressure control, we will repeat carotid duplex in 1 year, if this is normal she would no longer need surveillance. Assessment & Plan (02/04/2023 11:[address] SQL PROGRAMMER): Bilateral carotid artery stenosis. She remains asymptomatic denying any slurred speech unilateral neurological deficits or visual changes. Maintains compliance with medications. Plan: Follow-up in 1 year for routine surveillance with a carotid duplex. 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 The size has remained unchanged since her cyst drainage several years ago - consider repeat Ultrasound if there is a change in clinical exam Hypothyroidism 10/07/2010 Assessment & Plan (05/24/2018 12:[address] SQL PROGRAMMER): - Biochemically is euthyroid today as above. - Continue LT4 25 mcg daily. - The TSH at the lower end of normal has been persistent for her over time and might suggest some autonomous activity of the nodule. Will follow. Vitamin D deficiency 10/07/2010 Assessment & Plan (05/24/2018 12:[address] SQL PROGRAMMER): Repeat levels today remain at low end [...] on file Legal Sex Female 2:[address] SQL PROGRAMMER Gender Identity Female 05/24/2018 1:[address] SQL PROGRAMMER Sexual Orientation Not on file Obstetrics History Last Filed Vital Signs Vital Sign Reading Time Taken Comments Blood Pressure 138/84 07/31/2024 3:30 PM CDT Pulse 90 07/31/2024 3:30 PM CDT Temperature 36.5 C (97.7 F) 07/31/2024 3:30 PM CDT Respiratory Rate - - Oxygen Saturation 97% 02/08/2024 10:[address] SQL PROGRAMMER Inhaled Oxygen Concentration - - Weight 94.8 [...] 01/16/1978 Zoster Vaccine (1 of 2) 01/16/2010 DTaP/Tdap/Td Vaccine (2 - Td or Tdap) 10/21/2024 10/21/2014 Covid-19 Vaccine ( season) 2024 03/01/2021, 05/16/2020, 04/17/2020 Influenza Vaccine (#1) 2024 3, 12/31/2020, 12/05/2019, Additional history exists Pneumococcal vaccine <65 Aged Out 04/14/2021 No longer eligible based on patient's age to complete this topic Insurance [employer] MEDICARE GOLD MEDICARE AETNA [facility] AETNA MEDICARE GOLD Care Teams Furnace Installer Helper Relationship Specialty Start Date End Date Srinivasa Ibanez MD [address] [facility] [address] [place] [address] PCP - General Family Medicine 04/24/19
== END 2024-12-24 16:20 | disposition home or self-care (01) ==
LOC: ANHLAB 16:20
PROVIDERS: PCP Family Medicine; Visit Provider Student in an Organized Health Care Education/Training Program
DX: G40.909 Epilepsy, unspecified, not intractable, without status epilepticus (principal)
CPT/HCPCS: 80175

== ENCOUNTER 2024-12-27 09:53 | Outpatient (CLI) | payer MEDICARE, SELFPAY ==
--- NOTE | ~2024-12-27 | MM_ITS ---
EXAMINATION: MM screening reed BI w schuyler HISTORY: Screening TECHNIQUE: Craniocaudal and mediolateral oblique 3-D tomosynthesis images were obtained and synthetic 2-D images were generated. CAD analysis was submitted and interpreted. COMPARISON: Comparison to multiple prior studies sequentially, with oldest reviewed study dated 09/15/2017. BREAST PARENCHYMAL COMPOSITION: Not Dense: The breasts are almost entirely fatty. FINDINGS: There is no evidence of suspicious mass, calcification, or architectural distortion to suggest malignancy in either breast. There has been no suspicious interval change. IMPRESSION: 1. No mammographic evidence of malignancy. 2. Recommend routine screening mammography in one year. BI-RADS Category 1: Negative Reviewed, dictated and finalized at location C.
--- OUTSIDE RECORDS SUMMARY | 2024-12-27 10:28 | XMS_ITS | Clinical Summary ---
Author Organization [facility] Address [address] [place] [address] Care Team Providers Care Kayak Maker Name Role Phone Srinivasa Ibanez MD Primary [...] 02/10/2024 Assessment & Plan (02/10/2024 8:10 AM MAKEUP ARTIST): Stable continue amlodipine Abnormal serum creatinine level 02/02/2022 Acute conjunctivitis 02/02/2022 Anxiety 02/02/2022 Constipation 02/02/2022 Dysuria 02/02/2022 Epilepsy 02/02/2022 Ex-smoker 02/02/2022 Family history of cancer 02/02/2022 Fatigue 02/02/2022 Hypercalcemia 02/02/2022 Overweight 02/02/2022 Polyp of colon 02/02/2022 Tick bite 02/02/2022 Urinary tract infectious disease 02/02/2022 Hyperlipidemia 02/02/2022 Assessment & Plan (02/10/2024 8:10 AM MAKEUP ARTIST): Stable continue Lipitor Stenosis of carotid artery 11/12/2021 Assessment & Plan (02/10/2024 8:10 AM MAKEUP ARTIST): Right ICA stenosis found on CTA head and neck 2-3 years ago, has had subsequent duplexes which have not shown stenosis. I have recommended continued risk factor modification with ASA statin therapy and good blood pressure control, we will repeat carotid duplex in 1 year, if this is normal she would no longer need surveillance. Assessment & Plan (02/04/2023 11:46 AM MAKEUP ARTIST): Bilateral carotid artery stenosis. She remains asymptomatic denying any slurred speech unilateral neurological deficits or visual changes. Maintains compliance with medications. Plan: Follow-up in 1 year for routine surveillance with a carotid duplex. 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 The size has remained unchanged since her cyst drainage several years ago - consider repeat Ultrasound if there is a change in clinical exam Hypothyroidism 10/07/2010 Assessment & Plan (05/24/2018 12:57 PM MAKEUP ARTIST): - Biochemically is euthyroid today as above. - Continue LT4 25 mcg daily. - The TSH at the lower end of normal has been persistent for her over time and might suggest some autonomous activity of the nodule. Will follow. Vitamin D deficiency 10/07/2010 Assessment & Plan (05/24/2018 12:58 PM MAKEUP ARTIST): Repeat levels today remain at low end of normal range. Continue daily vitamin D. Encounters Date Type Department Care Team Description 12/25/2024 Telephone [facility] Medicine Epilepsy [address] [facility] [address] [place] [address] [place] [address] Donnell Mack MD PhD Med Management; Tingling from Last 3 Months Immunizations Immunization Administration [...] on file Legal Sex Female 2:46 AM MAKEUP ARTIST Gender Identity Female 05/24/2018 1:46 PM MAKEUP ARTIST Sexual Orientation Not on file Obstetrics History Last Filed Vital Signs Vital Sign Reading Time Taken Comments Blood Pressure 138/84 07/31/2024 3:30 PM CDT Pulse 90 07/31/2024 3:30 PM CDT Temperature 36.5 C (97.7 F) 07/31/2024 3:30 PM CDT Respiratory Rate - - Oxygen Saturation 97% 02/08/2024 10:28 AM MAKEUP ARTIST Inhaled Oxygen Concentration - - Weight 94.8 [...] topic Insurance AETNA MEDICARE GOLD MEDICARE AETNA [facility] GOLD [facility] MEDICARE Address: [facility] [address] [place] [address] AETNA MEDICARE [place] Care Teams Kayak Maker Relationship Specialty Start Date End Date Srinivasa Ibanez MD [address] [facility] [address] [place], [place] [id number] PCP - General Family Medicine 04/24/19
--- OUTSIDE RECORDS SUMMARY | 2024-12-27 10:28 | XMS_ITS | Encounter Summary ---
Author Organization [facility] Address [address] [place] [address] Phone Care Team Providers Care Dairy Technician Name Role Phone Srinivasa Ibanez MD Primary Care Provider Reason for Visit * Reason Onset Date Comments Med Management 12/25/2024 Tingling 12/25/2024 Encounter Details Date Type Department Care Team (Late st Contact Info) Description 12/25/2024 Telephone [facility] Medicine Epilepsy [address] [facility] [address] [place] [address] [place] [address] Donnell Mack MD PhD [address] [place] [address] Med Management; Tingling Social History Tobacco Use Types Packs/Day Years Used Date Smoking Tobacco: Former Smokeless Tobacco: Never Comments Unknown Sex and Gender Information Value Date Recorded Sex Assigned at Not on file Legal Sex Female 2:[address] Gender Identity Female 05/24/2018 1:[address] JUDGE Sexual Orientation Not on file documented as of this encounter Miscellaneous Notes * Telephone Encounter - Janelle Sepulveda CMA - 12/27/2024 8:44 AM CDT Left message for patient to call back regarding recommendations and request for LTG level. Patient did mention that patient recently had LTG level drawn. Need to know how to obtain those results. Janelle * Telephone Encounter - Janelle Sepulveda CMA - 12/25/2024 3:[address] Mack Patient phoned today to report tingling and numbness bilateral arms, legs, and head that has been present X 1 week. Patient reports that patient has had lightheadedness and is present constantly. Patient describes the intensity of being steady. Patients last seizure episode was on 09/07/2024. Patient reports difficulty with insomnia however this is not a new problem. Patient was previously advisedback in 08/2024 to increase LTG dosing to 200/300 however, pharmacy did not get authorization to fill medication early from office so patient did not increase medication dosing. An updated prescription was sent to pharmacy however no phone call to authorize early fill due to increased dosing. Patient has continued LTG dosing of 200mg BID. No missed medication doses. AED: LTG 200mg BID Any recommendations? Janelle Moulton documented in this encounter Plan of Treatment Not on file documented as of this encounter Visit Diagnoses Not on filedocumented in this encounter Care Teams Dairy Technician Relationship Specialty Start Date End Date Srinivasa Ibanez MD [address] [facility] [address] [place] [address] PCP - General Family Medicine 04/24/19 documented as of this encounter
== END 2024-12-27 09:54 | disposition home or self-care (01) ==
LOC: ANHFOHIMG 09:57
PROVIDERS: PCP Family Medicine; Visit Provider Family Medicine
DX: Z12.31 Encounter for screening mammogram for malignant neoplasm of breast (principal)
CPT/HCPCS: 77063; 77067

== ENCOUNTER 2025-03-13 08:27 | Emergency (ER) | payer MEDICARE, SELFPAY ==
[2025-03-13 08:43] VITALS: BP 129/89; PULSE 109; RESP 16; TEMP 36.3; O2SAT 98
--- NOTE | 2025-03-13 08:50 | ED.GENADULT ---
HPI - General Adult General Chief complaint: Skin/Abscess/Foreign Body Stated complaint: Rash Source: patient Mode of arrival: ambulatory Limitations: no limitations History of Present Illness HPI narrative: Pt is a 65 y/o female presenting with c/o rash. Reports rash to her lower back x 1 week, worsening over the last few days. Describes the rash as pruritic. No tx initiated PRODUCT SUPPORT ANALYST. Related Data Home Medications ?Medication ?Instructions ?Recorded ?Confirmed ?Last Taken ?Type cholecalciferol (vitamin D3) 50 2,000 unit PO DAILY 05/04/19 02/26/25 04/05/24 History mcg (2,000 unit) capsule lamotrigine 100 mg tablet 200 mg PO BID 05/04/19 02/26/25 04/06/24 History levothyroxine 25 mcg tablet 25 mcg PO DAILY 05/04/19 02/26/25 04/06/24 History hsgzqhsa-qbk-rhlhv acid 0.4 1 tablet PO DAILY 05/04/19 02/26/25 04/05/24 History mg-lycopene 300 mcg-lutein 250 mcg tablet (Centrum Silver) raloxifene 60 mg tablet 60 mg PO DAILY 05/04/19 02/26/25 04/05/24 History cyclosporine 0.05 % eye drops in a 1 drp EACH EYE BID 02/02/22 02/26/25 04/05/24 History dropperette (Restasis) Allergies Allergy/AdvReac Type Severity Reaction Status Date / Time No Known Allergies Allergy Verified 02/26/25 12:57 Review of Systems Review of Systems: CONSTITUTIONAL: Denies body aches, fever, chills, or sweats. EYES: Denies visual changes, redness, or discharge. ENT: Denies rhinorrhea, congestion, sore throat, or otalgia. CARDIOVASCULAR: Denies chest pain, palpitations, or edema. RESPIRATORY: Denies cough or dyspnea. GASTROINTESTINAL: Denies abdominal pain, nausea, vomiting, or diarrhea. GENITOURINARY: Denies dysuria or hematuria. SKIN: Reports pruritic rash to L. lower back MUSCULOSKELETAL: Denies back pain, joint pain, or myalgia. NEUROLOGIC: Denies headache, numbness, tingling, or weakness. PSYCH: Denies depression or anxiety. All systems reviewed & are unremarkable except as noted in HPI and below [facility] Past Medical History Medical History Vaginal discharge Left elbow fracture Closed fracture of capitellum of left humerus Skin tag 09/12/17 removal from lt breast Endometriosis Constipation Chronic GERD COPD (chronic obstructive pulmonary disease) Postmenopausal HRT (hormone replacement therapy) Osteopenia Blepharitis Anxiety Epilepsy Hypothyroidism Pulmonary nodule Surgical History Surgical History S/P breast biopsy, left (09/12/18) Benign History of craniotomy L temporal History of hysterectomy 1994 MIKE/BSO History of elective section times one--twins History of partial thyroidectomy History of exploratory laparotomy x 4 Family History Family History Father Recurrent strokes Hypertension Cerebrovascular accident Alzheimer disease Mother Acute eosinophilic leukemia Thyroid disease Anxiety Other Breast cancer maternal aunts x2 Other Heart disease Social History Social History Social History: the patient lives at home with her . He is a durable power employment law attorney for healthcare. She has 3 children. She has 1 daughter and is at a twin boys. 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 Patient used to smoke she quit smoking about 15 years ago. She smoked for 27 years. She is not use any marijuana or illicit drugs no alcohol. She desires to be a full code. Caffeine-daily Smoking packs per day: 0 Smoking cigarettes per day: 0.0 Years smoked: 26 Smoking pack-years: 0.00 Smoking status: Former smoker Tobacco type: cigarettes Second hand tobacco smoke exposure: No Smoking end date: 03/28/04 Alcohol intake: never Substance use: never Substance use type: does not use Lack of Transportation: No Lack of Food: Never True Current Housing: I Have Housing Concerned About Future Housing: No Difficulty Paying Gas/Electric Bills: No Difficulty Paying for Meds: No Currently Unemployed: No Education: Associate Degree Difficulty w/ Childcare or Family Care: No Living arrangements: with family Additional living arrangements comments: spouse Occupation/Education: occupation 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 HEAD: Normocephalic, atraumatic. EYES: EOMI. ENT: Mucous membranes pink and moist. NECK: Normal AROM. Supple. CHEST: No respiratory distress. HEART: Regular rate. EXTREMITIES: Normal range of motion. No edema. SKIN: Warm, dry. Capillary refill normal. Normal skin turgor. Clusters of erythematous, vesicular and papular lesions to the L. lower back. No drainage. No evidence of secondary bacterial skin infection. NEURO: No focal deficits. Alert and oriented x3. Gait steady. PSYCH: Normal affect. No signs of depression or anxiety. Course Course Emergency Course: Discussed elevated blood pressure readings with patient and advised daily BP monitoring and f/u with PCP if persisting. Level of Care: Express Care Visit Vital Signs Vital signs: Vital Signs Temperature 97.4 F L 03/13/25 08:43 Pulse Rate 109 H 03/13/25 08:43 Respiratory Rate 16 03/13/25 08:43 Blood Pressure 129/89 03/13/25 08:43 Pulse Oximetry 98 03/13/25 08:43 Temperature 97.4 F L 03/13/25 08:43 Pulse Rate 109 H 03/13/25 08:43 Respiratory Rate 16 03/13/25 08:43 Blood Pressure 129/89 03/13/25 08:43 Pulse Oximetry 98 03/13/25 08:43 MDM Differential Diagnosis Differential Diagnosis: shingles, urticaria, dermatitis Discharge Plan Discharge Clinical Impression: Shingles, HTN (hypertension) Patient Disposition: Home Condition: Stable Instructions: Shingles (ED) Additional Instructions: Go straight to ER should your symptoms become worse or should any new symptoms develop Patient Language: French Prescriptions: New valacyclovir 1 gram tablet 1,000 mg PO Q8H Qty: 30 0RF No Action levothyroxine 25 mcg tablet 25 mcg PO DAILY lamotrigine 100 mg tablet 200 mg PO BID Patient Comments: patient takes 100 mg BID raloxifene 60 mg tablet 60 mg PO DAILY Centrum Silver 0.4-300-250 mg-mcg-mcg tablet 1 tablet PO DAILY cholecalciferol (vitamin D3) 50 mcg (2,000 unit) capsule 2,000 unit PO DAILY albuterol sulfate 90 mcg/actuation HFA aerosol inhaler 1 inh INHALATION Q4H PRN (Reason: shortness of breath or wheezing) Qty: 6.7 4RF aspirin [Adult Low Dose Aspirin] 81 mg tablet,delayed release (DR/EC) 81 mg PO DAILY Qty: 90 0RF mupirocin [Centany] 2 % ointment 1 applic topical BID Qty: 22 3RF Rx Instructions: intranasal omeprazole 20 mg capsule,delayed release(DR/EC) 20 mg PO DAILY Qty: 90 2RF azithromycin 250 mg tablet See Rx Instructions PO .COMPLEX Qty: 6 0RF Rx Instructions: For 250 mg dose pack: take 500 mg today (day 1), then 250 mg for 4 days (days 2-5) PO cyclosporine [Restasis] 0.05 % dropperette 1 drp EACH EYE BID azelastine 137 mcg (0.1 %) spray,non-aerosol 1 spray intranasal Q12H Qty: 30 1RF Rx Instructions: administer into each nostril Anoro Ellipta 62.5-25 mcg/actuation blister with device 1 inh INHALATION DAILY Qty: 90 3RF fluticasone propionate 50 mcg/actuation spray,suspension 1 spray intranasal Q12H Qty: 48 1RF Rx Instructions: administer into each nostril amlodipine 5 mg tablet See Rx Instructions .ROUTE .COMPLEX Qty: 90 2RF Dose Instruction: TAKE 1 TABLET BY MOUTH EVERY DAY Rx Instructions: TAKE 1 TABLET BY MOUTH EVERY DAY estradiol 0.01 % (0.1 mg/gram) cream 1 g vaginal 3XW Qty: 42.5 1RF atorvastatin 20 mg tablet See Rx Instructions .ROUTE .COMPLEX Qty: 90 2RF Dose Instruction: TAKE 1 TABLET BY MOUTH EVERY DAY Rx Instructions: TAKE 1 TABLET BY MOUTH EVERY DAY Follow-up/Referrals: Srinivasa Ibanez MD [Primary Care Provider, Family Practice] - 03/14/25 Time of Disposition: 08:47
== END 2025-03-13 09:05 | disposition home or self-care (01) ==
PROVIDERS: Emergency Provider Registered Nurse; PCP Family Medicine
DX: B02.9 Zoster without complications (principal); I10 Essential (primary) hypertension; Z87.891 Personal history of nicotine dependence; J44.9 Chronic obstructive pulmonary disease, unspecified; E03.9 Hypothyroidism, unspecified; G40.909 Epilepsy, unspecified, not intractable, without status epilepticus; K21.9 Gastro-esophageal reflux disease without esophagitis; M85.80 Other specified disorders of bone density and structure, unspecified site; N80.9 Endometriosis, unspecified; Z90.89 Acquired absence of other organs; Z79.82 Long term (current) use of aspirin
CPT/HCPCS: 99213; G0463